=== PATIENT | female | born 1940 | race Caucasian/White ===

== ENCOUNTER 2019-04-13 00:37 | Outpatient (CLI) | payer MEDICARE, OTHER, SELFPAY ==
--- NOTE | 2019-04-13 12:25 | DI.MAMMO_ITS ---
EXAM: MG MAMMO SCREENING CLINICAL HISTORY: Screening, Z12.39. TECHNIQUE: Mammograms were interpreted according to the usual protocol including computer analysis w The [employer] CAD system, tomosynthesis and C-view imaging. COMPARISON: Comparison with prior examinations. FINDINGS: The breast tissue is heterogeneously radiodense which lowers the sensitivity of the study. There is no dominant mass. There are no suspicious calcifications and there has been no appreciable change whe n compared with prior images. IMPRESSION: No evidence of malignancy, category 1, annual screening mammography is recommended. Breast density C . BI-RADS Cat 1 - Negative Breast Density - Category C - Heterogeneously dense
== END 2019-04-13 00:57 ==
PROVIDERS: PCP Nurse Practitioner Family; Visit Provider Obstetrics & Gynecology Gynecology
DX: Z12.31 Encounter for screening mammogram for malignant neoplasm of breast (principal)
CPT/HCPCS: 77063; 77067

== ENCOUNTER 2019-05-24 02:22 | Outpatient (CLI) | payer MEDICARE, OTHER, SELFPAY ==
[2019-05-24 12:07] LABS: Hemoglobin A1C 6.1 % (4.5-6.2)
[2019-05-24 12:20] LABS: ALT 23 U/L (14-59); AST 22 U/L (15-37); Albumin 3.8 g/dL (3.4-5.0); Alkaline Phosphatase 103 U/L (46-116); Anion Gap 7.6 mmol/L (3-11); BUN 18 mg/dL (7-18); Bilirubin, Total 0.5 mg/dL (0.2-1.0); CO2 30.4 mmol/L (21.0-32.0); CREATININE 1.11 mg/dL (0.55-1.02); Calcium 9.2 mg/dL (8.5-10.1); Calculated LDL 104 mg/dL; Chloride 105 mmol/L (98-107); Cholesterol 178 mg/dL (<200); Estimated GFR 47.79 (mL/min/1.73m2); Glucose 91 mg/dL (74-106); HDL Cholesterol 54 mg/dL (40-60); Potassium 5.1 mmol/L (3.5-5.1); Sodium 143 mmol/L (136-145); Total Protein 6.9 g/dL (6.4-8.2); Triglyceride 100 mg/dL (<150)
== END 2019-05-24 02:42 ==
PROVIDERS: PCP Nurse Practitioner Family; Visit Provider Nurse Practitioner Family
DX: I48.20 Chronic atrial fibrillation, unspecified (principal); R79.89 Other specified abnormal findings of blood chemistry; Z13.1 Encounter for screening for diabetes mellitus
CPT/HCPCS: 36415; 80053; 80061; 83036

== ENCOUNTER 2019-05-30 00:06 | Outpatient (CLI) | payer MEDICARE, OTHER, SELFPAY ==
--- NOTE | 2019-05-30 13:41 | DI.CT_ITS ---
EXAM: CT CHEST W CLINICAL HISTORY: chronic SOB, question of scarring on cxray R06.02 SOB TECHNIQUE: Post IV contrast, 70 cc's of Omnipaque 350. COMPARISON: No exams were available for comparison FINDINGS: There is biatrial and left ventricular enlargement. There is mild aortic and coronary artery calcif ication. There are no pleural or pericardial effusions. No pulmonary emboli or aortic dissection is seen. There is a pectus excavatum deformity. There is scarring and calcification in both upper lobe s, right greater than left. There is a focal area of bronchiectasis inferiorly in the lingula. Scol iosis and degenerative changes are seen in the thoracic spine. Parapelvic cysts are noted in the lef t kidney. IMPRESSION: Biapical scarring, right greater than left. No mass is visible. Cardiomegaly.
[2019-05-30] MEDS: Omnipaque 350 MG/ML 100 ML BTL IV (14:12)
== END 2019-05-30 00:26 ==
PROVIDERS: PCP Nurse Practitioner Family; Visit Provider Nurse Practitioner Family
DX: R06.02 Shortness of breath (principal); I51.7 Cardiomegaly; J98.4 Other disorders of lung
CPT/HCPCS: 71260; J3490

== ENCOUNTER 2019-07-07 08:58 | Outpatient (CLI) | payer MEDICARE, OTHER, SELFPAY | END 2019-07-07 09:18 | PROVIDERS: PCP Nurse Practitioner Family; Visit Provider Internal Medicine Cardiovascular Disease | DX: I48.20 Chronic atrial fibrillation, unspecified (principal); N18.9 Chronic kidney disease, unspecified; R06.02 Shortness of breath | CPT/HCPCS: 99204; 93005; 93010 ==

== ENCOUNTER 2019-07-12 00:28 | Outpatient (CLI) | payer MEDICARE, OTHER, SELFPAY ==
--- NOTE | 2019-07-12 12:56 | DI.NM_ITS ---
APPROVED REPORT Exam: Exercise Treadmill Patient Location: Out-Patient Room/Bed: Stress Nurse: Iraida Bejarano RN BMI: 19.46 Baseline Rhythm: Atrial Fibrillation Indications: Patient reports SOB with activity for the past 1 ??? years. Medical History Medical History: Chronic Atrial Fibrillation, Chronic Kidney Disease, Raynaud???s Disease. Cardiac Medications: Apixaban, Metoprolol Succinate (currently in process of weaning and switching ov er to Diltiazem)., Allergies: Meclizine Cardiac Risk Factors: FHX of CAD, COPD Previous Cardiac Procedures: None Pretest Chest Pain Characteristics: No chest pain Exercise History: Physically active Physical Disabilities: None Lung Sounds: Clear to auscultation Heart Sounds: Regular Stress Test Details Test: Exercise stress testing was performed using a modified Ananda protocol. Nuclear Acquisition: Rest TI-201/Stress Tc-99M Rest Isotope: Tc-99m Sestamibi. Dose: 10.5 Date: 07/12/2019 Injection Time: 1140 Stress Isotope: Tc-99m Sestamibi. Dose: 31.5 Date: 07/12/2019 Injection Time: 1410 HR Max Heart Rate (APMHR): 143 bpm Resting HR Supine: 114 bpm Target HR (85% APMHR): 121 bpm Resting HR Standin bpm Max HR Achieved: 162 bpm % of APMHR: 113 HR response to stress: Abnormal HR response to stress BP Resting BP Supine: 110/60 mmHg Resting BP Standin/70 mmHg Max BP: 120/70 mmHg BP response to stress: Normal blood pressure response to stress. ECG Resting ECG: Atrial Fibrillation ST Change: Normal Ectopy: Occasional PVC's Stress ECG: Atrial Fibrillation ST Change: Normal Arrhythmia: None Recovery ECG: Atrial Fibrillation Recovery ST Change: Normal Recovery Arrhythmia: None Clinical Reason for Termination: Dyspnea Stress Symptoms: Dyspnea Exercise duration: 4 min3 sec Highest Stage Achieved: Stage 2: 2.5 mph at 12% grade. Exercise capacity: 5.90 METs Functional Capacity: Average Capacity Stress ECG Conclusion 1. Patient exercised for 4 minutes (6 METS) exercise was stopped due to dyspnea. 2. Patient achieved over 80% of predicted heart rate. Rate-pressure product 17,000. 3. There was no evidence of ischemia on the ECG portion of this exam. Protocol Used: Ananda Protocol Stress Test Summary STAGE Time (mins) Speed (mph) Grade (%) HR BP SYMPTOMS METS Supine 114 110/60 Standing 117 102/70 1 3 1.7 10 146 110/74 4.6 2 6 2.5 12 7 3 9 3.4 14 10.2 4 12 4.2 16 12.9 5 15 5.0 18 17.2 1 min recovery 154 110/62 3 min recovery 105 120/70 6 min recovery 105 110/70 MPI Conclusion Patient's ejection fraction was 52% with stress. There were no wall motion abnormalities. There is no evidence of ischemia on the imaging portion of this exam This represents a normal SPECT stress test Radiologist Interpretation Radiologist Interpretation by: Surya Bcak MD Interpretation Date/Time: 07/13/2019 15:16:48
== END 2019-07-12 00:48 ==
PROVIDERS: PCP Nurse Practitioner Family; Visit Provider Internal Medicine Cardiovascular Disease
DX: R07.9 Chest pain, unspecified (principal); R06.02 Shortness of breath; I48.20 Chronic atrial fibrillation, unspecified; N18.9 Chronic kidney disease, unspecified; J44.9 Chronic obstructive pulmonary disease, unspecified; Z82.49 Family history of ischemic heart disease and other diseases of the circulatory system
CPT/HCPCS: 78452; 93016; 93018; 93017

== ENCOUNTER → 2019-08-02 15:27 | Outpatient (BNVA) | payer MEDICARE, OTHER, SELFPAY | PROVIDERS: PCP Nurse Practitioner Family; Referring Provider Nurse Practitioner Family; Visit Provider Internal Medicine Cardiovascular Disease | DX: R06.02 Shortness of breath (principal); I48.2 Chronic atrial fibrillation; Z79.01 Long term (current) use of anticoagulants | CPT/HCPCS: 99214 ==

== ENCOUNTER 2019-08-25 14:47 | Outpatient (REF) | payer MEDICARE, OTHER, SELFPAY ==
[2019-08-25 16:27] LABS: COMMENT (LAB VIEW ONLY) 51.62 mg/dL; Microalb ug/mg Crea 38.4 ug/mg Cr
[2019-08-25 17:41] LABS: Bilirubin Negative (Negative); Blood Moderate (Negative); Clarity Clear (Clear); Glucose Negative (Negative); Ketones Negative (Negative); Leukocyte Esterase Negative (Negative); Nitrite Negative (Negative); Specific Gravity 1.015 (1.005-1.025); Urobilinogen 0.2 EU/dL (Up TO 0.2)
[2019-08-25 18:04] LABS: Bacteria Negative HPF (Negative); C & S Indicated? No; Casts Negative LPF (Negative); Crystals Few Uric Acid HPF (Negative); Epithelial Cells Negative HPF (Negative); Mucus Negative (Negative); Other Cells Negative (Negative); RBC Negative HPF (0-2); WBC Negative HPF (0-5)
== END 2019-08-25 15:07 ==
LOC: LBN 14:47
PROVIDERS: PCP Nurse Practitioner Family; Visit Provider Nurse Practitioner Family
DX: N18.9 Chronic kidney disease, unspecified (principal)
CPT/HCPCS: 81003; 81015; 82043; 82570

== ENCOUNTER 2020-03-01 01:34 | Outpatient (CLI) | payer MEDICARE, OTHER, SELFPAY ==
--- NOTE | 2020-03-01 07:15 | DI.US_ITS ---
APPROVED REPORT EXAM: Comprehensive 2D, Doppler, and color-flow Echocardiogram Patient Location: Out-Patient Phlebotomy Supervisor: Tsering Matthew RDCS (AE) Indications: SOB, Dyspnea on exertion Other Information Study Quality: Fair Conclusion Left Ventricle : The left ventricle is normal size. The left ventricular systolic function is normal. The left ventricular ejection fraction is within the normal range. There is normal left ventricular wall thickness. There is normal LV segmental wall motion. Diastolic function is indeterminate. LVEF i s 50%. Right Ventricle : The right ventricle is normal size. Right ventricular systolic function is grossly normal. Atria : The left atrium size is normal. Right atrium is borderline dilated. Mitral Valve : The mitral valve is normal in structure. No evidence of mitral valve stenosis. Mild to moderate mitral regurgitation. Great Vessels : The aortic root is normal in size. The ascending aorta is normal in size. Aortic arch is normal in caliber. IVC is normal in size and collapses >50% with inspiration. There are no prior images available for comparison. Please see remainder of study for further detail s. Wall motion Left Ventricle The left ventricle is normal size. The left ventricular systolic function is normal. The left ventric ular ejection fraction is within the normal range. There is normal left ventricular wall thickness. T here is normal LV segmental wall motion. Diastolic function is indeterminate. There is no ventricular septal defect visualized. LVEF is 50%. Right Ventricle The right ventricle is normal size. Right ventricular systolic function is grossly normal. Atria The left atrium size is normal. Right atrium is borderline dilated. The interatrial septum is intact with no evidence for an atrial septal defect. Aortic Valve Aortic valve is trileaflet. There is no aortic valvular stenosis. No aortic regurgitation is present. Mitral Valve The mitral valve is normal in structure. No evidence of mitral valve stenosis. Mild to moderate tyler l regurgitation. Tricuspid Valve The tricuspid valve is normal in structure. There is no tricuspid valve stenosis. Trace tricuspid reg urgitation. Pulmonic Valve The pulmonary valve is normal in structure. There is no pulmonic valvular stenosis. Mild pulmonic reg urgitation. Great Vessels The aortic root is normal in size. The ascending aorta is normal in size. Aortic arch is normal in ca liber. IVC is normal in size and collapses >50% with inspiration. Pericardium There is no pericardial effusion. 2D Dimensions IVSD d PLAX 0.71 cm F: 0.6-1.0 LV Vol A2C d MOD 74.9 mL LVPW d PLAX 0.70 cm F: 0.6 - 1.0 LV Vol A4C d MOD 48.1 mL LVID d PLAX 4.25 cm F: 3.8 - 5.2 LA vol/ BSA A2C s A-L 28.0 mL/m2 LVDs 3.05 cm F: 2.2 - 3.5 LA vol/ BSA A4C s A-L 31.9 mL/m2 Ao Root d 2.63 cm F: 2.7 - 3.3 LA Vol/ BSA Biplane s A-L 30.7 mL/m2 RA Area A4C 18.62 cm2 LA Area A4C s MOD 17.44 cm2 RA Vol/ BSA A4C s A-L 34.3 mL/m2 LA Area A2C s MOD 16.76 cm2 Ao Asc Diam d 2.94 cm F: 2.3 - 3.1 LV EF A4C MOD 50.3 % LV EF Teichholz 54.1 % LV EF A2C MOD 50.7 % LVEF (Zepeda's) 48.20 % F: 54 - 74 LV EF Biplane MOD 48.2 % LV Volume 50.86 mL F: 46 - 106 SV 29.59 mL LV Volume Index 33.46 mL/m2 F: 29 - 61 SV Index 19.43 mL/m2 LV Vol Biplane MOD 61.4 mL FS 27.70 % M-Mode TAPSE 1.77 cm (M/F) >1.7 LV Diastology MV E' medial 0.074 (>0.07 m/s) E/A Ratio 2.4 LV E/e MED 11.10 (<14) MV E Vmax 0.83 (0.4-1.3 m/s) MV E' lateral 0.078 (>0.1 m/s) MV A Vmax 0.35 (0.4-1.3 m/s) LV E/e LAT 10.50 (<14) MV E/A Ratio 2.08 MV E/E' medial 11.13 MV E/E' lateral 10.55 Aortic Valve LVOT Area 2.71 cm2 AoV Area Vmax 2.14 cm2 LVOT Vmax 0.85 m/s AoV Area/ BSA (Vmax) 1.41 cm2/m2 LVOT Mean Conor. 0.52 m/s RUSS Mean Conor. 1.80 cm2 LVOT Peak Grad 2.9 mmHg RUSS Mean Conor. Index 1.18 cm2/m2 LVOT Mean Grad 1.3 mmHg LVOT VTI 0.136 m LVOT Diam s 1.85 cm AoV Vmax 1.07 m/s Velocity Ratio 0.79 AoV Mean Conor. 0.78 m/s AoV Peak Grad 4.6 mmHg LVOT SV 36.76 mL AoV Mean Grad 2.7 mmHg AoV VTI 0.217 m AoV Area VTI 1.69 cm2 AoV Area/ BSA (VTI) 1.11 cm/m2 Mitral Valve MV DT 170 (160-240 msec) MR Vmax 4.50 m/s MV PHT 49 msec MR VTI 1.475 m MV Area PHT 4.46 cm2 MR Peak Grad 80.9 mmHg MV VTI 0.186 m MR Mean Grad 62.1 mmHg MV VTI Annulus 0.198 m MR PISA Radius 0.36 cm MV Area VTI 2.11 (4.0-6.0 cm2) MR EROA 0.06 cm2 MR Aliasing Velocity 0.35 m/s MR PISA 0.81 cm2 Pulmonary Valve PV Vmax 0.76 (0.5-1.5 m/s) RVOT Peak Gr. 0.72 mmHg PV Peak Grad 2.3 mmHg RVOT Mean Gr. 0.35 mmHg PV Mean Grad 1.2 mmHg RVOT VTI 0.088 m PV VTI 0.137 m RVOT Vmax 0.42 m/s Tricuspid Valve TR Peak Grad 18.9 mmHg TR Vmax 2.18 m/s RA Pressure 3.00 mmHg RVSP (TR) 21.9 mmHg
== END 2020-03-01 01:54 ==
PROVIDERS: PCP Nurse Practitioner Family; Visit Provider Internal Medicine Cardiovascular Disease
DX: R06.09 Other forms of dyspnea (principal); I34.0 Nonrheumatic mitral (valve) insufficiency
CPT/HCPCS: 93306

== ENCOUNTER → 2020-03-05 13:05 | Outpatient (BNVA) | payer MEDICARE, OTHER, SELFPAY | PROVIDERS: PCP Nurse Practitioner Family; Referring Provider Nurse Practitioner Family; Visit Provider Internal Medicine Cardiovascular Disease | DX: I48.20 Chronic atrial fibrillation, unspecified (principal); Z79.01 Long term (current) use of anticoagulants | CPT/HCPCS: 99214 ==

== ENCOUNTER 2020-10-02 03:29 | Outpatient (CLI) | payer MEDICARE, OTHER, SELFPAY ==
[2020-10-02 12:24] LABS: HCT 40.6 % (36.0-46.0); HGB 13.4 g/dL (11.2-15.7); MPV 10.8 fL (8.0-11.0); Platelet Count 235 10^3/uL (130-400); RBC 4.32 10^6/uL (3.93-5.22); RDW 12.8 % (11.7-14.6); RDW-SD 43.8 fL; WBC 6.93 10^3/uL (4.4-10.8)
[2020-10-02 12:34] LABS: Anion Gap 6.7 mmol/L (3-11); BUN 18 mg/dL (7-18); CO2 32.3 mmol/L (21.0-32.0); CREATININE 1.2 mg/dL (0.55-1.02); Calcium 9.2 mg/dL (8.5-10.1); Calculated LDL 95 mg/dL (<100); Chloride 104 mmol/L (98-107); Cholesterol 174 mg/dL (<200); Estimated GFR 43.45 (mL/min/1.73m2); Glucose 93 mg/dL (74-106); HDL Cholesterol 62 mg/dL (40-60); Potassium 3.8 mmol/L (3.5-5.1); Sodium 143 mmol/L (136-145); Triglyceride 87 mg/dL (<150)
[2020-10-02 12:35] LABS: Hemoglobin A1C 5.7 % (<5.7)
== END 2020-10-02 03:30 | disposition home or self-care (01) ==
LOC: LOS 03:29
PROVIDERS: PCP Nurse Practitioner Family; Visit Provider Nurse Practitioner Family
DX: R73.03 Prediabetes (principal); N18.9 Chronic kidney disease, unspecified
CPT/HCPCS: 36415; 80048; 80061; 85027; 83036

== ENCOUNTER 2020-10-04 19:59 | Outpatient (REF) | payer MEDICARE, OTHER, SELFPAY ==
[2020-10-04 20:36] LABS: FREE T4 1.16 ng/dL (0.76-1.46); TSH 2.21 uIU/mL (0.36-3.74)
== END 2020-10-04 20:00 | disposition home or self-care (01) ==
LOC: LBN 19:59
PROVIDERS: PCP Nurse Practitioner Family; Visit Provider Nurse Practitioner Family
DX: R63.4 Abnormal weight loss (principal)
CPT/HCPCS: 84439; 84443

== ENCOUNTER 2020-12-14 03:42 | Outpatient (CLI) | payer MEDICARE, OTHER, SELFPAY ==
--- NOTE | 2020-12-14 12:59 | DI.MAMMO_ITS ---
Exam(s) MAMMO SCREENING EXAM: MAMMO SCREENING CLINICAL HISTORY: screening TECHNIQUE: Mammograms were interpreted according to the usual protocol including computer analysis w [employer] CAD system, tomosynthesis and C-view imaging. COMPARISON: 2018 and 2019 FINDINGS: The breasts are composed of heterogeneously dense fibroglandular densities, Breast Density category C . No suspicious masses or suspicious microcalcifications are seen. Coarse calcifications in the anteri or left breast. Mild vascular calcifications. Benign punctate calcifications in the superior right breast. No skin thickening or abnormal axillary lymph nodes are seen. There has been no significant change from prior exams. IMPRESSION: BI-RADS Cat 2 - Benign Findings. Yearly screening mammography is recommended. Breast Density Category C, heterogeneously Dense. The mammogram demonstrates the patient's breast tissue is dense. Dense breast tissue is very common a nd is not abnormal but dense breast tissue can make it harder to find cancer on a mammogram. Also, de nse breast tissue may increase breast cancer risk. This information about the result of the mammogram report was provided to the patient to raise their awareness. Use this report when you speak with the patient about their risks for breast cancer, which includes their family history. At that time, you may recommend additional screening tests (Ultrasound or MRI) as they might be useful based on their r isk. A negative radiographic report should not delay biopsy if a dominant or clinically suspicious mass is present. Up to ten percent of cancers are not identified on mammography. A negative report may reinforce clinical impression. Adenosis and dense breasts may obscure an underlying neoplasm. False positive reports average 6 to 10%.
== END 2020-12-14 04:02 ==
PROVIDERS: PCP Nurse Practitioner Family; Visit Provider Obstetrics & Gynecology Gynecology
DX: Z12.31 Encounter for screening mammogram for malignant neoplasm of breast (principal)
CPT/HCPCS: 77063; 77067

== ENCOUNTER 2020-12-26 01:58 | Outpatient (CLI) | payer MEDICARE, OTHER, SELFPAY ==
--- NOTE | 2020-12-26 06:30 | DI.US_ITS ---
Exam(s) US PELVIS TRANSVAGINAL EXAM: US PELVIS TRANSVAGINAL CLINICAL HISTORY: fullness RLQ on bimanual exam,R19.8. TECHNIQUE: Transabdominal and transvaginal pelvic ultrasound was performed using standard protocol. COMPARISON: No exams were available for comparison FINDINGS: UTERUS: Position: Anteverted. Size: 4.3 x 2.3 x 3.3 cm Endometrium: 1.4 mm. Normal for patient's menstrual status. There is a tiny amount of fluid in the e ndometrial canal. Myometrium: Unremarkable. Cervix: Unremarkable. OVARIES: Right: 1.8 x 0.9 x 0.8 cm Cyst or mass: None. Left: Not visualized transabdominally or transvaginally. No left adnexal mass is identified sonograp hically. CUL-DE-SAC: Free fluid: None. Other: None. IMPRESSION: 1. Examination limited by overlying bowel. 2. Small amount of free fluid in the endometrial canal. 3. Unremarkable right ovary. No evidence of a right adnexal mass. 4. Left ovary not visualized on this examination. No left adnexal mass is seen sonographically. DATA REPOSITORY:
== END 2020-12-26 02:18 ==
PROVIDERS: PCP Nurse Practitioner Family; Visit Provider Obstetrics & Gynecology Gynecology
DX: R19.8 Other specified symptoms and signs involving the digestive system and abdomen (principal)
CPT/HCPCS: 76830; 76856

== ENCOUNTER 2021-03-13 00:20 | Outpatient (CLI) | payer MEDICARE, OTHER, SELFPAY ==
[2021-03-13 12:50] LABS: ALT 27 U/L (14-59); AST 27 U/L (15-37); Albumin 4.1 g/dL (3.4-5.0); Alkaline Phosphatase 121 U/L (46-116); Anion Gap 5.6 mmol/L (3-11); BUN 18 mg/dL (7-18); Bilirubin, Total 0.5 mg/dL (0.2-1.0); CO2 32.4 mmol/L (21.0-32.0); CREATININE 1.1 mg/dL (0.55-1.02); Calcium 9.2 mg/dL (8.5-10.1); Chloride 104 mmol/L (98-107); Estimated GFR 48.04 (mL/min/1.73m2); Glucose 94 mg/dL (74-106); Potassium 4.8 mmol/L (3.5-5.1); Sodium 142 mmol/L (136-145); Total Protein 7.3 g/dL (6.4-8.2)
[2021-03-13 13:21] LABS: HCT 39.1 % (36.0-46.0); MCH 31.6 pg (27.0-33.0); MCHC 33.2 % (32.0-36.0); MCV 94.9 fL (80-95); MPV 10.7 fL (8.0-11.0); Platelet Count 224 10^3/uL (130-400); RBC 4.12 10^6/uL (3.93-5.22); RDW 13.6 % (11.7-14.6); RDW-SD 44.1 fL; WBC 6.25 10^3/uL (4.4-10.8)
== END 2021-03-13 00:21 | disposition home or self-care (01) ==
PROVIDERS: PCP Nurse Practitioner Family; Visit Provider Nurse Practitioner Family
DX: R63.4 Abnormal weight loss (principal)
CPT/HCPCS: 36415; 80053; 85027

== ENCOUNTER 2021-03-21 02:45 | Outpatient (CLI) | payer MEDICARE, OTHER, SELFPAY ==
--- NOTE | 2021-03-21 07:15 | DI.CT_ITS ---
Exam(s) CT ABDOMEN PELVIS W EXAM: CT ABDOMEN PELVIS W CLINICAL HISTORY: Unintentional weight loss, GI upset,r63.4 TECHNIQUE: Imaging Protocol: Axial computed tomography images with coronal and sagittal reformatted images were created and reviewed CONTRAST MATERIAL: Intravenous: Omnipaque 350 Contrast volume:66 mL Oral: Yes COMPARISON: CT CHEST W from 05/30/[address] CHEST W from 05/30/2019 FINDINGS: ABDOMEN: Lung Bases: Normal where visualized. Small hiatal hernia. Liver: Normal density. No measurable mass. The liver measures 18 cm long. Portal, Superior Mesenteric, and Splenic Veins: Unremarkable. Gallbladder and Biliary Tract: No radiodense calculus or dilation. Pancreas: Normal density, no abnormal calcifications or inflammatory process. Spleen: Normal. Adrenals: No masses seen. Kidneys: Normal size, contour and axis. No radiodense stones or obstructive uropathy. Bilateral parap elvic cysts. Abdominal Aorta: Abdominal portion non-dilated. Moderate atherosclerosis. Bowel: No obstruction or bowel wall thickening. Appendix is unremarkable. Peritoneal Cavity: No ascites, collection or mesenteric inflammatory response. No free air. Lymph Nodes: Within normal limits. Bones: Multilevel moderately severe degenerative changes in the lumbar spine. The findings are most marked at L2-3 and L4-L5. There is a left convex scoliosis. Soft Tissues: Unremarkable. PELVIS: Bladder: The bladder is incompletely distended. There is diffuse thickening of the wall of the urina ry bladder. This may be due to underdistention. An infectious/inflammatory process cannot be exclud ed. Reproductive Organs: Unremarkable as visualized. Lymph Nodes: Within normal limits. Bones: Degenerative changes in the spine. IMPRESSION: 1. No acute abdominal or pelvic process. 2. Diffuse thickening of the wall of the urinary bladder. This may be due to underdistention, howeve r an inflammatory/infectious process or neoplasm cannot be excluded. Please correlate clinically. RADIATION DOSE DELIVERED: 647.26mGy.cm Total DLP DATA REPOSITORY: All CT scans at this facility are submitted to the National Radiology Data Registry (NRDR) Dose Index Registry (DIR) with the [employer] (ACR). RADIATION OPTIMIZATION: All CT scans at this facility use at least one of these dose optimization te chniques: automated exposure control; mA and/or kV adjustment per patient size (includes targeted exa ms where dose is matched to clinical indication); or iterative reconstruction.
--- NOTE | 2021-03-21 07:15 | DI.RAD_ITS ---
Exam(s) XR CHEST 2V PA LATERAL EXAM: XR CHEST 2V PA LATERAL CLINICAL HISTORY: r/o lung mass,unintentional wt loss,r63.4 TECHNIQUE: 2D digital imaging was performed of the chest. Images were obtained. PA and lateral v iews were obtained. COMPARISON: CT CHEST W from 05/30/[address] CHEST W from 05/30/2019 FINDINGS: MEDIASTINUM: Normal. HEART: Normal. PULMONARY VASCULATURE: Normal. LUNGS: The lungs appear hyperinflated suspicious for underlying COPD. No focal consolidating infiltr ates are seen. No pulmonary mass is appreciated. PLEURAL SPACE: No pleural effusion or pneumothorax. BONE:Within normal limits for the patient's age. There is a pectus excavatum deformity. OTHER FINDINGS:Normal. IMPRESSION: No acute pulmonary findings. DATA REPOSITORY: RADIATION DOSE DELIVERED:
[2021-03-21 08:51] LABS: CREATININE 1.1 mg/dL (0.55-1.02); Estimated GFR 48.04 (mL/min/1.73m2)
[2021-03-21] MEDS: Breeza Beverage 473 ML BTL PO ×2 (08:53→08:54)
[2021-03-21] MEDS: Omnipaque 350 MG/ML 50 ML BTL PO (08:54)
[2021-03-21] MEDS: Omnipaque 350 MG/ML 100 ML BTL IJ (10:14)
[2021-03-21] MEDS: Normal Saline - Diluent 50 ML VIAL IV (10:14)
[2021-03-21] MEDS: Normal Saline Flush 10 ML SYR IVP (10:15)
== END 2021-03-21 03:05 ==
PROVIDERS: PCP Nurse Practitioner Family; Visit Provider Nurse Practitioner Family
DX: R63.4 Abnormal weight loss
CPT/HCPCS: 71046; 74177; 82565; J3490; Q9967

== ENCOUNTER 2021-04-15 19:28 | Outpatient (REF) | payer MEDICARE, OTHER, SELFPAY ==
[2021-04-15 20:08] LABS: Bilirubin Negative (Negative); Blood Small (Negative); Clarity Clear (Clear); Glucose Negative (Negative); Ketones Negative (Negative); Leukocyte Esterase Negative (Negative); Nitrite Negative (Negative); Specific Gravity 1.015 (1.005-1.025); Urobilinogen 0.2 EU/dL (Up TO 0.2); pH 5.5 (5-8)
[2021-04-15 20:19] LABS: Bacteria Negative HPF (Negative); C & S Indicated? No; Casts Negative LPF (Negative); Crystals Negative HPF (Negative); Epithelial Cells Negative HPF (Negative); Mucus Negative (Negative); Other Cells Negative (Negative); RBC Negative HPF (0-2); WBC 0-2 HPF (0-5)
== END 2021-04-15 19:29 | disposition home or self-care (01) ==
LOC: NCHCN 19:28
PROVIDERS: PCP Nurse Practitioner Family; Visit Provider Nurse Practitioner Family
DX: N32.89 Other specified disorders of bladder (principal); R82.998 Other abnormal findings in urine
CPT/HCPCS: 81003; 81015

== ENCOUNTER 2021-10-24 03:50 | Outpatient (CLI) | payer MEDICARE, OTHER, SELFPAY ==
[2021-10-24 12:22] LABS: Abs Immature Grans 0.02 10^3/uL (0.0-0.06); Absolute Basophil Count 0.03 10^3/uL (0.0-0.2); Absolute Eosinophil Count 0.18 10^3/uL (0.0-0.7); Absolute Lymphocyte Count 1.83 10^3/uL (1.2-3.4); Absolute Monocyte Count 0.41 10^3/uL (0.1-0.8); Absolute Neutrophil Count 2.97 10^3/uL (1.2-6.7); Basophils % 0.6; Eosinophils % 3.3; HCT 37.8 % (36.0-46.0); Immature Grans % 0.4; Lymphocytes % 33.6; MCH 29.6 pg (27.0-33.0); MCHC 31.7 % (32.0-36.0); MCV 93 fL (80-95); Monocytes % 7.5; Neutrophils % 54.6; Platelet Count 239 10^3/uL (130-400); RBC 4.06 10^6/uL (3.93-5.22); RDW 13.3 % (11.7-14.6); RDW-SD 45.9 fL; WBC 5.44 10^3/uL (4.4-10.8)
[2021-10-24 13:07] LABS: Anion Gap 7.2 mmol/L (3-11); BUN 14 mg/dL (7-18); CO2 29.8 mmol/L (21.0-32.0); CREATININE 1.1 mg/dL (0.55-1.02); Calcium 9.1 mg/dL (8.5-10.1); Chloride 103 mmol/L (98-107); Estimated GFR 47.91 (mL/min/1.73m2); Glucose 84 mg/dL (74-106); Potassium 4.2 mmol/L (3.5-5.1); Sodium 140 mmol/L (136-145); TSH (W/Ref FT4) 2.04 uIU/mL (0.36-3.74)
[2021-10-24 13:20] LABS: Hemoglobin A1C 5.8 % (<5.7)
[2021-10-25 11:02] LABS: HIV-1/2 Ag & Ab Screen Negative (Negative)
[2021-10-25 11:28] LABS: Hepatitis C Ab w Rflx HCV PCR Negative (Negative)
== END 2021-10-24 03:51 | disposition home or self-care (01) ==
LOC: LOS 03:51
PROVIDERS: PCP Nurse Practitioner Family; Visit Provider Nurse Practitioner Family
DX: R63.4 Abnormal weight loss (principal); R73.03 Prediabetes; Z11.59 Encounter for screening for other viral diseases; Z11.4 Encounter for screening for human immunodeficiency virus [HIV]
CPT/HCPCS: 36415; 80048; 86803; 87389; 83036; 84443; 85025

== ENCOUNTER → 2022-02-03 01:33 | Outpatient (CLI) | payer MEDICARE, OTHER, SELFPAY ==
--- NOTE | 2022-02-03 12:41 | DI.MAMMO_ITS ---
Exam(s) MAMMO SCREENING EXAM: MAMMO SCREENING CLINICAL HISTORY: screening,z12.39. TECHNIQUE: Bilateral full field digital CC and MLO mammographic images were obtained with 3D tomosyn thesis and utilizing computer aided detection (CAD). COMPARISON: Prior mammograms were reviewed, the most recent being November 2020. FINDINGS: Fibroglandular tissue is again noted be moderately dense, this somewhat decreasing the sensitivity of the mammogram for finding in underlying lesions. No new significant radiograph findings in the right breast. In the left breast on the MLO imaging there is an asymmetric density-possible nodule measuring 6 x 3 millimeters, located 3 cm in from the nipple. No malignant-appearing microcalcification groups in th is region. There is no significant architectural distortion nor skin thickening-retraction. IMPRESSION: 1. No radiographic evidence of malignancy left breast. 2. Asymmetric density-possible nodule left breast. Spot compression MLO view and ultrasound recommen ded. BI-RADS Category 0 - Assessment Incomplete: Need additional imaging evaluation Breast Density - Category C - Heterogeneously dense Breast density Category C or D implies that the patient has dense breast tissue. Dense breast tissue can make it harder to find cancer on a mammogram. Dense breast tissue is also associated with an incr eased risk of breast cancer. This information about the result of the mammogram report was provided to the patient to raise their awareness. Use this report when you speak with the patient about their risks for breast cancer, which includes their family history. At that time, you may recommend additional screening tests (Ultrasoun d or MRI) as these tests may add significant information. A negative radiographic report should not delay biopsy if a dominant or clinically suspicious mass is present. Up to ten percent of cancers are not identified on mammography. A negative report may reinforce clinical impression. Adenosis and dense breasts may obscure an underlying neoplasm. False positive reports average 6 to 10%. Patient will receive a letter notifying them of these results.
== END ==
PROVIDERS: PCP Nurse Practitioner Family; Visit Provider Obstetrics & Gynecology Gynecology
DX: Z12.31 Encounter for screening mammogram for malignant neoplasm of breast (principal); R92.8 Other abnormal and inconclusive findings on diagnostic imaging of breast
CPT/HCPCS: 77063; 77067

== ENCOUNTER → 2022-02-07 00:19 | Outpatient (CLI) | payer MEDICARE, OTHER, SELFPAY ==
--- OUTSIDE RECORDS SUMMARY | 2022-02-07 00:21 | XMS_ITS | Encounter Summary ---
:1940 Author Organization [facility] [place] [address] Care Team Providers Name Role Phone Ml Roche APRN Primary Care Provider Reason for Referral Consultation (Routine) - Open Specialty Diagnoses / Procedures Referred By Contact Refer red To Contact Endocrinology Diagnoses Weight loss, unintentional Ml Roche APRN [facility] [address] [id number] [place], [place] [address] Referral ID Status Reason Start Date Expiration Date Visits V isits Requested Authorized [id number] Open Consult, 10/18/2021 10/18/2022 6 6 Test & Treat Encounter Details Date Type Department Care Team Description 10/18/2021 Transcribe Orders eDH Incoming Ml Roche Weigh t loss, Referrals CL[facility] [employer]RINKING TESTER unintentional [phone] [facility] [address] [place], [place] [id number] Social History Tobacco Use Types Packs/Day Years Used Date Former Smoker Cigarettes 0.5 3 Quit: 06/24/18 70 Smokeless Tobacco: Never Used Sex Assigned at Date Recorded Not on file documented as of this encounter Plan of Treatment Upcoming Encounters Date Type Specialty Care Team Description 03/14/2022 Office Visit Endocrinology Sean Dc MD [facility] [address] [place], [place] [address] (Wo rk) Scheduled Referrals Name Type Priority Associated Diagnoses Order S chedule Referral to Outpatient Routine Weight loss, Ordered: Endocrinology Referral unintentional 10/18/2021 documented as of this encounter Visit Diagnoses Diagnosis Weight loss, unintentional Loss of weight documented in this encounter Care Teams Ecologist Technician Relationship Specialty Start Date End Date Ml Roche APRN PCP - General Family Medicine 10/17/[address] [facility] [address] [place] [address] documented as of this encounter
--- OUTSIDE RECORDS SUMMARY | 2022-02-07 00:21 | XMS_ITS | Encounter Summary ---
:1940 Author Organization [facility] [place] [address] Care Team Providers Name Role Phone Alea Esqueda MD Primary Care Provider Reason for Visit Reason Comments Other 2nd opinion sore throat Consultation (Routine) - Specialty Diagnoses / Procedures Referred By Contact Refer red To Contact Otolaryngology Diagnoses 2ND OPINION FOR SORE THROAT Alea Esqueda MD Seo, Sarah S, MD Procedures TREAT [address] [facility] [address] [place] [address] Phone: Fax: Referral ID Status Reason Start Date Expiration Date Visits V isits Requested Authorized [id number] Consult, Test 03/17/2017 06/19/2017 4 4 & Treat PCP Updated and/or Approved Encounter Details Date Type Department Care Team Description 04/24/2017 Office Visit [facility]ol[facility]ology at [facility] Nasreen Schmidt MD Throat discomfort [facility] [place] [address] [place]ARYNGOLOGY [place], [place] [address] Social History Tobacco Use Types Packs/Day Years Used Date Former Smoker Cigarettes 0.5 3 Quit: 06/24/18 70 Smokeless Tobacco: Never Used Sex Assigned at Date Recorded Not on file documented as of this encounter Last Filed Vital Signs Vital Sign Reading Time Taken Comments Blood Pressure - - Pulse - - Temperature - - Respiratory Rate - - Oxygen Saturation - - Inhaled Oxygen Concentration - - Weight 54.4 kg (120 lb) 04/24/2017 9:54 AM EDT Height 163.8 cm (5' 4.5) 04/24/2017 9:54 AM EDT Body Mass Index 20.28 04/24/2017 9:54 AM EDT documented in this encounter Progress Notes Nasreen Schmidt MD - 04/24/2017 10:00 AM EDT [facility] Otolaryngology - Head and Neck Surgery Nasreen Schmidt MD 04/24/17 10:10 AM [place], [place] [address] Office Patient Name: Brooke Rojo Date of : 1940 PCP: Alea Esqueda MD Chief Complaint: throat irritation History of Present Illness: Brooke Rojo is a 76 y.o. year old female who was seen today at the request of Alea Esqueda in consultation for left-sided throat irritation. Patient has had these symptoms on and off for the past 2years. She notes a spot of irritation over the left side of her throat that is visible to her. She was seen by overlying neurologist in the past who told her that it was an area of irritation. The spothas not grown in size but it is not gone away completely. She does note some mild postnasal drainagesymptoms and rhinitis as well but does seem to aggravate the area. But she denies any difficulty swallowing. Denies dysphagia or odynophagia. Denies any voice changes or hoarseness. Denies hemoptysis or hematemesis. No fevers chills or weight loss. Otherwise doing well. 10 point Review of Systems was normal except for pertinent positives and negatives included in the History of Present Illness. Past Medical and Surgical History There is no problem list on file for this patient. No current outpatient prescriptions on file prior to visit. No current facility-administered medications on file prior to visit. Allergies: Meclizine Surgical History: No past surgical history on file. Family and Social History Family History: No family history on file. Social History: [place] [facility] [id number] Social History Social History ??? Marital status: Spouse name: N/A ??? Number of children: N/A ??? Years of education: N/A Occupational History ??? Not on file. Social History Main Topics ??? Smoking status: Former Smoker Packs/day: 0.50 Years: 3.00 Types: Cigarettes Quit date: 06/24/1967 ??? Smokeless tobacco: Never Used ??? Alcohol use Not on file ??? Drug use: Not on file ??? Sexual activity: Not on file Other Topics Concern ??? Not on file Social History Narrative ??? No narrative on file Physical Exam Temperature: Heart Rate: Blood Pressure: Respiratory Rate: SpO2: General: Age appropriate, healthy appearing, well-groomed, independently mobile. Communicates easily, speech clear, voice is strong. Awake, alert, and oriented to person, place and time. Affect appropriate. Head and Face: Head is normocephalic, atraumatic. Facial resting tone symmetric. Eyes: Conjugate gaze, ocular motility intact bilaterally. PERRL. Neurologic: Cranial Nerves II-XII grossly intact and symmetric. Ears: External ear and ear canal are without deformity. Nose: External nose is midline without deformity or lesion. Anterior rhinoscopy reveals a straight septum, healthy mucosa, turbinates normal in size. Oral: There are no visible or palpable buccal, gingival, lingual, or palatal lesions. The floor of mouth is soft and flat. Dentition is in good repair. Oropharynx: She is status post tonsillectomy but has a little bit of residual tonsil and lymphoid tissue over the left superior tonsillar fossa. This area measures about 3 x 4 mm in size. No ulcerationor overlying induration was noted. Larynx: No stridor, no hoarseness. External laryngeal structures normal to palpation. Face and sinuses are non tender. Salivary glands are soft, non tender, without palpable masses. No temporomandibular joint grinding or locking. Neck: Symmetric. No scars, palpable masses, or crepitus. Midline trachea. Thyroid normal in size, non tender, no palpable mass. Lymphatic: no palpable cervical lymphadenopathy. Pulmonary: Breathing comfortably. Symmetric chest expansion without use of accessory muscles or retraction. Skin: Good skin turgor, no pallor, no icterus. Extremities: No gross deformities, no peripheral edema. ASSESSMENT & RECOMMENDATIONS Brooke Rojo is a 76 y.o. female with left-sided intermittent throat irritation and normal-appearing residual tonsil tissue in the left tonsil fossa. Recommendations: 1. I think the scaly areas getting irritated from her postnasal drainage and so Atrovent nasal sprayhas been sent to her pharmacy to reduce this. 2. She will come back to see me in 3 months to assure stability or improvement in the irritation. I did explain to her that the actual tissue itself may not resolve on its own but the goal is for the irritation to resolve. Nasreen Schmidt MD Otolaryngology - Head and Neck Surgery 04/24/17 10:10 AM documented in this encounter Plan of Treatment Upcoming Encounters Date Type Specialty Care Team Description 03/14/2022 Office Visit [facility]ocrinology [facility] [place] [address] (Wo rk) documented as of this encounter Visit Diagnoses Diagnosis Throat discomfort Throat pain documented in this encounter Care Teams Infant Babysitter Relationship Specialty Start Date End Date Alea Esqueda MD PCP - General 11/22/14 10/16/21 [address] [place] [address] documented as of this encounter
--- OUTSIDE RECORDS SUMMARY | 2022-02-07 00:21 | XMS_ITS | Encounter Summary ---
:1940 Author Organization [facility] [address] Care Team Providers Name Role Phone Ml Roche APRN Primary Care Provider Reason for Visit Reason Onset Date Comments Appointment 10/24/2021 Encounter Details Date Type Department Care Team Description 10/24/2021 Telephone Endocrinology at [facility] C Darby Kim I Appointment [facility] [place] [address] Social History Tobacco Use Types Packs/Day Years Used Date Former Smoker Cigarettes 0.5 3 Quit: 06/24/18 70 Smokeless Tobacco: Never Used Sex Assigned at Date Recorded Not on file documented as of this encounter Miscellaneous Notes Telephone Encounter - Darby Kim I - 10/24/2021 8:10 AM EDT Unable to contact patient to schedule from referral. Letter sent and referral closed. documented in this encounter Plan of Treatment Upcoming Encounters Date Type Specialty Care Team Description 03/14/2022 Office Visit Endocrinology Sean Dc MD [facility] [address] [place] [address] (Wo rk) documented as of this encounter Visit Diagnoses Not on filedocumented in this encounter Care Teams Commercial Sales Consultant Relationship Specialty Start Date End Date Ml Roche APRN PCP - General Family Medicine 10/17/[address] [place] [address] documented as of this encounter
--- OUTSIDE RECORDS SUMMARY | 2022-02-07 00:22 | XMS_ITS | Encounter Summary ---
:1940 Author Organization [facility] Address [address] [place] [address] Care Team Providers Name Role Phone Unavailable Primary Care Provider Unavailable Reason for Visit Reason Comments Basal Cell Carcinoma Neck and Chin Encounter Details Date Type Department Care Team Description 04/18/2020 Office Visit [facility] Elliot Jacob Basal c ell carcinoma (BCC) of chin (Primary Dx); Dermatology - Ethan Raza MD Basal cell carcinoma (BCC) of left side of neck; [address] Basal cell carcinoma of left side of neck [address] [place], [place] [id number] [place] [address] [facility] Level [address] [place] [address] (Wo rk) Social History Tobacco Use Types Packs/Day Years Used Date Former Smoker 1 4 Quit: 06/22/18 68 Smokeless Tobacco: Never Used Alcohol Use Standard Drinks/Week Comments No 0 (1 standard drink = 0.6 oz pure alcoho l) Sex Assigned at Date Recorded Female 05/26/2019 14:58 EST documented as of this encounter Last Filed Vital Signs Vital Sign Reading Time Taken Comments Blood Pressure 118/85 04/18/2020 0747 EDT Pulse 73 04/18/2020 0747 EDT Temperature 36.4 ??C (97.5 ??F) 04/18/2020 0747 EDT Respiratory Rate - - Oxygen Saturation - - Inhaled Oxygen Concentration - - Weight - - Height - - Body Mass Index - - documented in this encounter Functional Status Functional Status Response Date of Assessment Because of a physical, mental, or emotional condition, No 03/13/2018 does this person have difficulty doing errands alone such as visiting a doctor's office or shopping? Cognitive Status Response Date of Assessment Because of a physical, mental, or emotional condition, No 03/13/2018 does this person have serious difficulty concentrating, remembering, or making decisions? documented as of this encounter Patient Instructions Patient InstructionsJasiel Caba MD - 04/18/2020 8:00 EDT WOUND CARE INSTRUCTIONS FOR SKIN SURGERY (SUTURED OR OPEN WOUND) BANDAGE: Leave the bandage in place for 24 hours. You may shower or bathe after 24 hours. Remove thebandage and replace it after the showering (see below). DISCOMFORT: Expect discomfort. Take acetaminophen (for example, TylenolTM) as directed. If this doesnot provide sufficient relief, take ibuprofen (AdvilTM), up to 600 mg every 8 hours). You may take both of these together or alternate them. We do not routinely prescribe narcotic pain medications. If pain is severe and not relieved by the above measures, please call the office. BLEEDING: Some blood seeping into the bandage is NORMAL. If the bleeding soaks through the dressing,remove the dressing, and apply firm, steady pressure with a moist clean wash cloth for fifteen minutes. If the bleeding stops, redress the wound. If not, call our office. ACTIVITY: No strenuous activity for the first 48 hours after surgery. Keep your head elevated. APPEARANCE: Swelling and bruising are normal. Some redness is normal, but the wound should not be red, hot and tender. If the wound rapidly swells up or becomes increasingly inflamed, warm, or drains pus, please call our office. WOUND CARE: ?? Change the dressing daily and/or when it becomes wet. ?? Wash hands with soap and water and clean the wound with soap and warm water. ?? You may use 3% hydrogen peroxide and a cotton swab to loosen and remove the crusting from a woundwith stitches. ?? Apply a thin layer of sterile petroleum jelly over the wound. ?? Cover with Telfa or similar non-stick dressing or bandage ?? Tape in place with Hypafix or paper tape ?? Mild tenderness, pinpoint bleeding and a thin mucous-like discharge are normal. ?? Keep all sutured wounds covered daily for a full 7 days. ?? Open wounds will need to be covered for much longer. ?? If you have sutures that require removal, you will receive specific instructions regarding when and where to have them removed. ?? If you have dissolving sutures they will fall apart and be gone in 10-14 days. OPEN WOUND HEALING (Wound without sutures): If your wound was left open to heal on its own, approximately one week after surgery a pink/red halo will form around the outside of the wound; this is new skin. The center of the wound will appear yellowish white and produce some drainage. The pink halo will slowly migrate toward the center of the wound until the wound is covered with new shiny pink skin. There will be a mucus-like drainage on the dressing and there will be no more drainage when the woundis completely healed. WHEN TO CONTACT YOUR PHYSICIAN: Contact you physician if your wound becomes increasingly sore, tender, red, or warm, or if the surgery site rapidly swells. Please call our office [phone] or if you have any questions or concerns. documented in this encounter Progress Notes Jasiel Caba MD - 04/18/2020 0800 EDT Images from the original note were not included. MOHS SURGERY POST-OP SUMMARY Brooke Rojo is a 79 y.o. year old female who underwent Mohs surgery today 04/18/2020. The following is a summary of the operative findings: Lesion 1 Basal cell carcinoma (BCC) Location Left chin Size Preop (cm) 3.0 cm x 1.5 cm Size Postop (cm) 3.1 cm x 1.8 cm Stages 3 Depth of Excision subcutis Repair intermediate linear repair Lesion 2 Basal cell carcinoma (BCC) Location Left neck Size Preop (cm) 2.5 cm x 1.3 cm Size Postop (cm) 2.7 cm x 1.3 cm Stages 1 Depth of Excision subcutis Repair intermediate linear repair Lesion 3 Basal cell carcinoma (BCC) Location Left neck superior lesion Size Preop (cm) 0.9 cm x 0.7 cm Size Postop (cm) 1.2 cm x 1.0 cm Stages 1 Depth of Excision subcutis Repair intermediate linear repair NOTE: WE ENTERED THE NOTES FOR LESIONS 1 and 2 PRIOR to CYBERATTACK LESION THREE is WRITTEN ON PAPER and SCANNED We also scanned in lesions 1 and 2, however the documentation is duplicated below Due to computer system disruption, additional clinical information for this visit is Scanned Note. For patients, please refer to guidance in trend.ly on how to locate information. Generally this information will appear as a scanned documents saved in My Documents activity. Ms. Rojo was discharged from the operative suite in good condition. She was carefully instructed inpostoperative wound care both verbally and in writing. The patient will return for follow up as needed. Attestation statement: I saw and examined the patient with the resident/fellow. I agree with the findings and plan of care documented in the resident's/fellow's note. Elliot Jacob MD Chief of Dermatology [facility] MOHS OPERATIVE REPORT Patient Name: Brooke Rojo Date of Service: April 18, 2020 Surgeon: Elliot Jacob MD I personally performed the procedure Elliot Jacob MD Chief of Dermatology [facility] Warp Tension Tester: Jasiel Toledo MD Case #: [id number] Mohs AUC Score: 9 (APPROPRIATE) Preoperative Diagnosis: Basal cell carcinoma (BCC) Preoperative Procedure: Mohs micrographic surgery Location of Lesion: Left chin Preoperative Lesion Size: 3.0 cm x 1.5 cm Preoperative Procedure: Mohs microscopically-controlled fresh tissue excision Indications: The patient presents with a basal cell carcinoma (BCC). Because of the histologic and clinical nature of the lesion, as well as its location, the need to achieve the highest cure rate while providing maximum tissue preservation warranted tumor extirpation via microscopically-controlled excision using the Mohs fresh tissue technique. Alternate therapeutic options were discussed on severaloccasions prior to surgery. After informed consent was obtained and appropriate instruction was provided, the patient underwent tumor extirpation by the Mohs fresh tissue technique as follows: PROCEDURE - INITIAL STAGE: Patient position: supine Anesthesia: 1% lidocaine with epinephrine 1:100,000 local infiltration Prep: Povodine Iodine No data found. The patient was brought to the operative suite. The lesion was identified and was prepped in a sterile fashion. The area was infiltrated with lidocaine/epinephrine to achieve complete anesthesia and toaugment hemostasis. The Mohs procedure was then carried out by Dr. Jacob as follows: An initial beveled excision was performed to the subcutis with a scalpel blade and tissue scissors as indicated. Ahash was created in the specimen and within the adjacent epidermis for marking purposes. The Mohs specimen was excised in a sharp manner, and carefully placed in proper orientation on the surgical tray. Hemostasis of the operative wound was obtained with careful spot electrocoagulation. A sterile non-adherent dressing was applied to the operative wound. The Mohs tissue specimen was carefully transferred to the lab where the tissue was divided, and color inked for orientation. These specimens were mapped and then handed personally by the doctor to the sterile instrument technician for frozen sectioning. The tissue was embedded so that the deep and surface margins lay inthe same plane, and sections were made through this plane. Once the slide preparation was complete Dr. Jacob performed histologic evaluation and interpretation of all sections. A summary of the findings may be found below. Stage 1 findings: Wound Depth subcutis Sections Created 2 Number of Sections Containing Tumor 1 (NODULAR BASAL CELL CARCINOMA -- Emanating from the epidermis and infiltrating the dermis are irregularly shaped islands of basaloid keratinocytes. The cells have scant cytoplasm and round dark nuclei. Mitotic figures and apoptotic bodies are evident. The nuclei at the periphery of the islands have a palisaded arrangement. The islands are associated with a fibromyxoid stroma and there is cleft formation between some of the islands and stroma.) ADDITIONAL STAGES: The operative site was reidentified and anesthesia was supplemented with further lidocaine/epinephrine as needed. Further beveled incisions of lateral and deep margins were performed with a number 15 scalpel blade at all sites where tumor was mapped from the previous stage. Hashes were created in the specimen and within the adjacent epidermis for marking purposes as indicated. The specimens were excised in a sharp manner, and carefully placed in proper orientation on the surgical tray. Hemostasis ofthe operative wound was obtained with careful spot electrocoagulation. A sterile non-adherent dressing was applied to the operative wound. Stage 2 findings: Wound Depth subcutis Sections Created 1 Number of Sections Containing Tumor 1 Stage 3 findings: Wound Depth subcutis Sections Created 1 Number of Sections Containing Tumor 0 With the patient clear of microscopic tumor, surgery was considered complete. The wound was repairedwith an INTERMEDIATE LINEAR closure as detailed in the separate linear repair procedure note below. Postoperative Wound Size: 3.1 cm x 1.8 cm Final Diagnosis: Basal cell carcinoma (BCC) Final Procedure: Mohs micrographic surgery Blood Loss: Minimal Operative Time: 90 minutes Complications: None Note: None INTERMEDIATE REPAIR PATIENT INFORMATION: Brookegrey Rojo SURGEON: Elliot Jacob MD I personally performed the procedure Elliot Jacob MD Chief of Dermatology [facility] STARTER MECHANIC: Jasiel Toledo MD PREOPERATIVE DIAGNOSIS: Defect following microscopically controlled excision of basal cell carcinoma(BCC) PREOPERATIVE PROCEDURE: Intermediate Linear Closure LOCATION of WOUND: Left chin WOUND DIMENSIONS: 3.1 cm x 1.8 cm INDICATIONS: The patient presents with an operative wound following tumor removal. After careful consideration and discussion of all repair options, it was determined that, given the location and nature of the defect, an intermediate linear layered closure offered the best chance for preservation of normal anatomic and functional relationships. Alternate options were discussed and the patient was encouraged to ask questions, which, I believe, were answered appropriately. Informed consent was obtained in writing.After informed consent was obtained and appropriate instruction was provided, the patient underwent operative repair as follows. PROCEDURE: Patient position: supine Anesthesia: 1% lidocaine with epinephrine 1:100,000 local infiltration Prep: Povodine Iodine The Mohs operative defect was identified, and the area was infiltrated with lidocaine/epinephrine toachieve complete anesthesia and to augment hemostasis. The area was prepped in the usual sterile andwas draped with sterile drapes. A linear closure was designed with care to place the operative repair within functional and cosmetic lines to minimize the postoperative distortion of normal tissues. The wound edges were prepared using a # 15 scalpel blade to precisely delineate the operative repair and were then undermined with combined blunt and, as needed, sharp dissection taking great care to avoid functionally important vessels and nerves. Undermining was carried out at the level of the subcutaneous fat Hemostasis of the operative wound was obtained with careful spot electrocoagulation, and ligature as indicated. The wound edges were then approximated using 5.0 Monocryl (poliglecaprone 25) buried interrupted sutures at the level of the subcutis and dermis. The epidermis was then approximated u sing 6.0 Fast absorbing plain gut. The final wound length was 5.7cm. FINAL DIAGNOSIS: Defect following microscopically controlled excision FINAL PROCEDURE: Intermediate linear closure BLOOD LOSS: minimal OPERATIVE TIME: 30 minutes COMPLICATIONS: None NOTE: None MOHS OPERATIVE REPORT Patient Name: Brooke Rojo Date of Service: April 18, 2020 Surgeon: Elliot Jacob MD I personally performed the procedure Elliot Jacob MD Chief of Dermatology [facility] Warp Tension Tester: Jasiel Toledo MD Case #: [id number] Mohs AUC Score: 8 (APPROPRIATE) Preoperative Diagnosis: Basal cell carcinoma (BCC) Preoperative Procedure: Mohs micrographic surgery Location of Lesion: Left neck Preoperative Lesion Size: 2.5 cm x 1. 3 cm Preoperative Procedure: Mohs microscopically-controlled fresh tissue excision Indications: The patient presents with a basal cell carcinoma (BCC). Because of the histologic and clinical nature of the lesion, as well as its location, the need to achieve the highest cure rate while providing maximum tissue preservation warranted tumor extirpation via microscopically-controlled excision using the Mohs fresh tissue technique. Alternate therapeutic options were discussed on severaloccasions prior to surgery. After informed consent was obtained and appropriate instruction was provided, the patient underwent tumor extirpation by the Mohs fresh tissue technique as follows: PROCEDURE - INITIAL STAGE: Patient position: supine Anesthesia: 1% lidocaine with epinephrine 1:100,000 local infiltration Prep: Povodine Iodine No data found. The patient was brought to the operative suite. The lesion was identified and was prepped in a sterile fashion. The area was infiltrated with lidocaine/epinephrine to achieve complete anesthesia and toaugment hemostasis. The Mohs procedure was then carried out by Dr. Jacob as follows: An initial beveled excision was performed to the subcutis with a scalpel blade and tissue scissors as indicated. Ahash was created in the specimen and within the adjacent epidermis for marking purposes. The Mohs specimen was excised in a sharp manner, and carefully placed in proper orientation on the surgical tray. Hemostasis of the operative wound was obtained with careful spot electrocoagulation. A sterile non-adherent dressing was applied to the operative wound. The Mohs tissue specimen was carefully transferred to the lab where the tissue was divided, and color inked for orientation. These specimens were mapped and then handed personally by the doctor to the sterile instrument technician for frozen sectioning. The tissue was embedded so that the deep and surface margins lay inthe same plane, and sections were made through this plane. Once the slide preparation was complete Dr. Jacob performed histologic evaluation and interpretation of all sections. A summary of the findings may be found below. Stage 1 findings: Wound Depth subcutis Sections Created 2 Number of Sections Containing Tumor 0 (SUN DAMAGED SKIN: Sections consist of a portion of skin, including epidermis, dermis, and subcutis. The epidermis is unremarkable. There is chronic patchy inflammation and solar elastosis present within the dermis. There is no evidence of malignancy). ADDITIONAL STAGES: None With the patient clear of microscopic tumor, surgery was considered complete. The wound was repairedwith an INTERMEDIATE LINEAR closure as detailed in the separate linear repair procedure note below. Postoperative Wound Size: 2.7 cm x 1.5 cm Final Diagnosis: Basal cell carcinoma (BCC) Final Procedure: Mohs micrographic surgery Blood Loss: Minimal Operative Time: 60 minutes Complications: None Note: None INTERMEDIATE REPAIR PATIENT INFORMATION: Brooke Rojo SURGEON: Elliot Jacob MD I personally performed the procedure STARTER MECHANIC: Jasiel Toledo MD PREOPERATIVE DIAGNOSIS: Defect following microscopically controlled excision of basal cell carcinoma(BCC) PREOPERATIVE PROCEDURE: Intermediate Linear Closure LOCATION of WOUND: Left neck WOUND DIMENSIONS: 2.7 cm x 1.5 cm INDICATIONS: The patient presents with an operative wound following tumor removal. After careful consideration and discussion of all repair options, it was determined that, given the location and nature of the defect, an intermediate linear layered closure offered the best chance for preservation of normal anatomic and functional relationships. Alternate options were discussed and the patient was encouraged to ask questions, which, I believe, were answered appropriately. Informed consent was obtained in writing.After informed consent was obtained and appropriate instruction was provided, the patient underwent operative repair as follows. PROCEDURE: Patient position: supine Anesthesia: 1% lidocaine with epinephrine 1:100,000 local infiltration Prep: Povodine Iodine The Mohs operative defect was identified, and the area was infiltrated with lidocaine/epinephrine toachieve complete anesthesia and to augment hemostasis. The area was prepped in the usual sterile andwas draped with sterile drapes. A linear closure was designed with care to place the operative repair within functional and cosmetic lines to minimize the postoperative distortion of normal tissues. The wound edges were prepared using a # 15 scalpel blade to precisely delineate the operative repair and were then undermined with combined blunt and, as needed, sharp dissection taking great care to avoid functionally important vessels and nerves. Undermining was carried out at the level of the subcutaneous fat Hemostasis of the operative wound was obtained with careful spot electrocoagulation, and ligature as indicated. The wound edges were then approximated using 5.0 Monocryl (poliglecaprone 25) buried interrupted sutures at the level of the subcutis and dermis. The epidermis was then approximated u sing 6.0 Fast absorbing plain gut. The final wound length was 5.0 cm. 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
--- OUTSIDE RECORDS SUMMARY | 2022-02-07 00:22 | XMS_ITS | Encounter Summary ---
:1940 Author Organization [facility] Address [address] [place] [address] Care Team Providers Name Role Phone Ml Roche NP Primary Care Provider Reason for Visit Reason Comments Follow-up skin lesions; L side upper l ip Encounter Details Date Type Department Care Team Description 11/04/2021 Office Visit [facility] Taylor Murdock sa, MD Seborrheic keratoses (Primary Dx); Dermatology - Main [address] [place] [address] Rosacea ; [facility] Lentigines; [address] [place] [address] Actinic skin damage; [place] [address] [facility], Level 5 History of nonmelanoma skin cancer [phone] [place] [phone] (Wo rk) Social History Tobacco Use Types Packs/Day Years Used Date Former Smoker 1 4 Quit: 06/22/18 68 Smokeless Tobacco: Never Used Alcohol Use Standard Drinks/Week Comments No 0 (1 standard drink = 0.6 oz pure alcoho l) Sex Assigned at Date Recorded Female 05/26/2019 14:58 EST documented as of this encounter Functional Status Functional Status Response [...] making decisions? documented as of this encounter Progress Notes Yolanda Murdock MD - 11/04/2021 1300 EDT Dermatology Outpatient Visit Note Chief Complaint Patient presents with ??? Follow-up skin lesions; L side upper lip Dermatologic History: 1. History of multiple basal cell carcinomas including barragan, forehead, thigh, christian and eyelid - left supraclavicular neck s/p shave removal with neg margins 08/2013 - upper lip s/p Mohs 2018 - left neck s/p shave removal with neg margins 10/2018 - BCC, left chin, left inferior neck, and left post-auricular neck, s/p shave biopsy on 02/23/2020 - s/p Mohs 2. Rosacea 3. Seborrheic keratoses Last Dermatology office visit: February 2021 SUBJECTIVE Ms. Rojo is a 81 y.o. female who presents for follow up for skin check. - lesion on left upper lip - check prior basal cell carcinoma sites - rosacea doing well OBJECTIVE VS: There were no vitals taken for this visit. Ms. Rojo is female with Bucio type II skin. Cutaneous full body examination including the hair, scalp, face, eyelids, lips, neck, chest, back, abdomen, all four extremities, hands, feet, digits and nails was performed.The examination was notable for the following: - left upper lip: bland william macule - scattered stuck on waxy papules - left neck, left chin, upper lip: well-healed scars without ulceration or nodularity ASSESSMENT/PLAN Seborrheic keratoses Benign, reassurance provided. Rosacea Continue azelaic acid Lentigines Actinic skin damage History of nonmelanoma skin cancer The nature of sun-induced photo-aging and skin cancers is discussed. Sun avoidance, protective clothing, and the use of OTC broad spectrum 50+-SPF sunscreens with both UVA and UVB coverage is advised. Observe closely for skin damage/changes, and call if such occurs. No orders of the defined types were placed in this encounter. She will Return in about 1 year (around 11/04/2022) for FBSE, hx NMSC. Yolanda Murdock MD 11/07/2021 15:13 documented in this encounter Plan of Treatment Not on filedocumented as of this encounter Visit Diagnoses Diagnosis Seborrheic keratoses - Primary Rosacea Lentigines Other dyschromia Actinic skin damage Other dermatitis due to solar radiation History of nonmelanoma skin cancer Personal history of other malignant neop lasm of skin documented in this encounter Care Teams Breast Trimmer Relationship Specialty Start Date End Date Ml Roche NP PCP - General 11/12/[address] [place] [id number] documented as of this encounter
--- OUTSIDE RECORDS SUMMARY | 2022-02-07 00:22 | XMS_ITS | Encounter Summary ---
:1940 Author Organization [facility] Address [address] [place] [address] Care Team Providers Name Role Phone Alea Esqueda MD Primary Care Provider Encounter Details Date Type Department Care Team Description 10/29/2015 Orders Only [facility] Lilibeth Esqueda MD [facility] - [id number] [place] [address] [phone] Social History Tobacco Use Types Packs/Day Years Used Date Former Smoker 1 4 Quit: 06/22/18 68 Smokeless Tobacco: Never Used Alcohol Use Standard Drinks/Week Comments No 0 (1 standard drink = 0.6 oz pure alcoho l) Sex Assigned at Date Recorded Female 05/26/2019 14:58 EST documented as of this encounter Plan of Treatment Not on filedocumented as of this encounter Visit Diagnoses Not on filedocumented in this encounter Care Teams Wind Turbine Erector Relationship Specialty Start Date End Date Alea Esqueda MD PCP - General 05/11/14 02/22/[address] [place] [address] [phone] documented as of this encounter
--- OUTSIDE RECORDS SUMMARY | 2022-02-07 00:22 | XMS_ITS | Encounter Summary ---
:1940 Author Organization [facility] Address [address] [place] [address] Care Team Providers Name Role Phone Ml Roche NP Primary Care Provider Reason for Visit Reason Comments Basal Cell Carcinoma left chin Encounter Details Date Type Department Care Team Description 12/31/2020 Office Visit [facility] Elliot Jacob Basal c ell carcinoma Dermatology - [facility] MD Ry (BCC) of [address] (Primary Dx) [address] [place] [address] [facility] Level [address] [place] [address] (Wo rk) Social History Tobacco [...] Sign Reading Time Taken Comments Blood Pressure 105/74 12/31/2020 1025 EDT Pulse 124 12/31/2020 1025 EDT Temperature - - Respiratory Rate - - [...] as of this encounter Patient Instructions Patient InstructionsWilgabe LoisNANNETTE - 12/31/2020 10:00 EDT WOUND CARE INSTRUCTIONS FOR SKIN SURGERY [...] site rapidly swells. Please call our office [phone] or if you have any questions or concerns. documented in this encounter Progress Notes Danielle Menjivar PA-C - 12/31/2020 1000 EDT Images from the original note were not included. MOHS SURGERY POST-OP SUMMARY Brooke Rojo is a 80 y.o. year old female who underwent Mohs surgery today 12/31/2020. The followingis a summary of the operative findings: Lesion 1 Basal cell carcinoma (BCC) Location left chin Size Preop (cm) 0.4 cm x 0.4 cm Size Postop (cm) 0.9 cm x 0.9 cm Stages 1 Depth of Excision subcutis Repair intermediate linear repair Ms. Rojo was discharged from the operative suite in good condition. She was carefully instructed inpostoperative wound care both verbally and in writing. All sutures used were absorbable, so the patient does not need to return for suture removal. Patient will return in January for Mohs of the forehead and scalp. Note: None Attestation statement: I performed or was present during the guerra or critical portions of the visit and participated in the management of the patient. I agree with the findings and plan of care documented in the resident's/fellow's note. Elliot Jacob MD Chief of Dermatology [facility] MOHS OPERATIVE REPORT Patient Name: Brooke Rojo Date of Service: December 31, 2020 Surgeon: Elliot Jacob MD I personally performed the procedure Elliot Jacob MD Chief of Dermatology [facility] Timber Bucker: Danielle Menjivar PA-C and Jasiel Toledo MD Case #: [id number] Mohs AUC Score: 7 (APPROPRIATE) Preoperative Diagnosis: Nodular basal cell carcinoma Preoperative Procedure: Mohs micrographic surgery Location of Lesion: left chin Preoperative Lesion Size: 0.4 cm x 0.4 cm Preoperative Procedure: Mohs microscopically-controlled fresh tissue excision Indications: The patient presents with a skin cancer with high risk features for recurrence including: location on the chin. Because of the histologic and clinical nature of the lesion, as well as its location, the need to achieve the highest cure rate while providing maximum tissue preservation warranted tumor extirpation via microscopically-controlled excision using the Mohs fresh tissue technique.Alternate therapeutic options were discussed prior to surgery. After informed consent was obtained and appropriate instruction was provided, the patient underwent tumor extirpation by the Mohs fresh tissue technique as follows: PROCEDURE - INITIAL STAGE: Patient position: seated Anesthesia: 1% lidocaine with epinephrine 1:100,000 local infiltration Prep: Povodine Iodine Patient Vitals for the past 24 hrs: BP Pulse 12/31/20 1025 105/74 (!) 124 The patient was brought to the operative suite. The lesion was identified and was prepped in a sterile fashion. The area was infiltrated with lidocaine/epinephrine to achieve complete anesthesia and toaugment hemostasis. The Mohs procedure was then carried out by Dr. Jacob as follows: An initial beveled excision was performed through the epidermis and dermis with a #15 scalpel blade. A hash was created in the specimen and within the adjacent epidermis for marking purposes. The Mohs specimen was then excised in a sharp manner, and carefully placed in proper orientation on the surgical tray. Hemost asis of the operative wound was obtained with careful spot electrocoagulation. A sterile non-adherent dressing was applied to the operative wound. The Mohs tissue specimen was carefully transferred to the lab where the tissue was divided, and color inked for orientation. These specimens were mapped and then handed personally by the doctor to the research technician for frozen sectioning. The tissue was [...] repair procedure note below. Postoperative Wound Size: 0.9 cm x 0.9 cm Final Diagnosis: Nodular basal cell carcinoma Final Procedure: Mohs micrographic surgery Blood Loss: Minimal Operative Time: 45 minutes Complications: None Note: None INTERMEDIATE REPAIR PATIENT INFORMATION: Brooke Rojo SURGEON: Elliot Jacob MD I personally performed the procedure Elliot Jacob MD Chief of Dermatology [facility] VOLUNTEER FIREFIGHTER: Danielle Menjivar PA-C and Jasiel Toledo MD PREOPERATIVE DIAGNOSIS: Defect following microscopically controlled excision of nodular basal cell carcinoma PREOPERATIVE PROCEDURE: Intermediate Linear Closure LOCATION of WOUND: left chin WOUND DIMENSIONS: 0.9 cm x 0.9 cm INDICATIONS: The patient presents with an [...] plain gut. The final wound length was 3.0 cm. FINAL DIAGNOSIS: Defect following microscopically controlled excision FINAL PROCEDURE: Intermediate linear closure BLOOD LOSS: minimal OPERATIVE TIME: 45 minutes COMPLICATIONS: None NOTE: None I Danielle Menjivar PA-C am acting as a scribe for Dr. Elliot Jacob. Danielle Menjivar PA-C 12/31/2020 11:42 documented in this encounter Plan of Treatment Not on filedocumented as of this encounter Procedures Procedure Name Priority Date/Time Associated Diagnosis Comme nts PROCEDURE REPORTS - 01/10/2021 22:48 Resu lts for this SCANNED EDT procedure are i n the results section. documented in this encounter Results PROCEDURE REPORTS - SCANNED (01/10/2021 22:48 EDT) Specimen Narrative This result has an attachment that is no t available. documented in this encounter Visit Diagnoses Diagnosis Basal cell carcinoma (BCC) of [facility] documented in this encounter Care Teams Level Vial Inspector Relationship Specialty Start Date End Date Ml Roche NP PCP - General 11/12/[address] [place] [address] [address] [place] [address] documented as of this encounter
--- OUTSIDE RECORDS SUMMARY | 2022-02-07 00:22 | XMS_ITS | Encounter Summary ---
:1940 Author Organization [facility] Address [address] [place] [address] Care Team Providers Name Role Phone Alea Esqueda MD Primary Care Provider Reason for Visit Reason Comments Osteoporosis Encounter Details Date Type Department Care Team Description 10/26/2015 Office Visit [facility] Bogdan Barlow MD Ost eoporosis (Primary Dx); Osteoporosis - Main Suresh Traore MD History of bisphosphonate therapy; [place] Family history of hip fractu re [address] [place], [place] [id number] Social History Tobacco Use Types Packs/Day Years [...] - - Weight 54.4 kg (120 lb) 10/26/2015 1044 EDT Height 164.2 cm (5' 4.65) 10/26/2015 1044 EDT Body Mass Index 20.19 10/26/2015 1044 EDT documented in this encounter Progress Notes Rena Estrada - 10/26/2015 1117 EDT Procedure Date: 10/26/2015 Referring Physician: Alea Esqueda MD Previous Scan Date: 2012 ABN Necessary: No Ht 164.2 cm (64.65) Wt 54.432 kg (120 lb) BMI 20.19 kg/m2 Done AP SPINE yes FEMUR yes TOTAL BODY FOREARM LVA/VFA HEEL US PATIENT HISTORY: Patient Active Problem List Diagnosis ??? History of basal cell carcinoma Past Medical History Diagnosis Date ??? Varicella ??? Alopecia ??? Rosacea ??? Actinic keratosis ??? Basal cell carcinoma CHIN, left upper lid ??? Basal cell carcinoma 09/30/05 left advent ??? Basal cell carcinoma 03/17/06 left thigh ??? Basal cell carcinoma 06/30/06 chin ??? Basal cell carcinoma 05/01/09 chin ??? Broken toe left 5th toe ??? Raynaud's disease Additional Comments: Previous/Prior Comparison? Yes Pharmacologic? No [facility] Patient Information Ethnicity/Race: Nutrition and Habits: Do you consume dairy? Yes Number of servings per day? 4 Do you take calcium supplements? Yes Amount? 700 mg daily Do you drink 3 or more alcoholic beverages daily? No Have you now or have you had in the past an eating disorder? No Do you or have you smoked in the last 6 months? No Family History: Did your mother or father have a hip fracture? Yes (Mom\ fall) Do you have a parent or sibling who suffered a broken hip, shoulder, wrist or ribs after age 45? Yes Patient History-Medications: Have you taken any of the following medications or treatments. (Now or in the past)?: Steroid (prednisone, cortisone, Medrol) 5mg. or more for at least 3 months? No Thyroid medication for thyroid cancer suppression? No Anticonvulsants (phenytoin, Dilantin, phenobarbital) No GnRH Agonist (for endometriosis or prostate cancer, Example - Lupron) No Depo Povera (Current use) No Aromatase inhibitor: Letrozol (Femera), Anastrozole (arimidex), Exemestane (Aromasin) No TZD's for diabetes (Actos, Avandia) No Medical History: Have you had any of the following?: Hyperthyroidism (over active thyroid) No Hyperparathyroidism (over active parathyroid, high blood calcium) No Kidney failure No Rheumatoid arthritis No Seizure disorder (epilepsy) No Diabetes mellitus No Bariatric surgery/Gastric bypass No Back Surgery No Back X-ray No Fractures after age 40 No Area: Treatments: Alendronate (Fosamax) Past use X 2-3 yrs, Date stopped: ? 2006 Calcitonin (Miacalcin) Never, Date stopped: Denosumab (Prolia) Never, Date stopped: Ibandronate (Boniva) Never, Date stopped: Pamidronate (Aredia) Never, Date stopped: Raloxifene (Evista) Never, Date stopped: Risendronate (Actonel) Never, Date stopped: Teriparatide (Forteo) Never, Date stopped: Zoledronic Acid (Reclast, Zomata) Never, Date stopped: Other: Never, Date stopped: For Women Only: What was your age at menopause? 54 Are you taking estrogen now or within the past year? Never, Date stopped: Have you been treated for breast cancer? Never Comments: No VFA done due to Osteoporosis. Rena Estrada 10/26/2015 11:17 documented in this encounter Plan of Treatment Not on filedocumented as of this encounter Procedures Procedure Name Priority Date/Time Associated Diagnosis Comme nts ORDERS - SCANNED 10/31/2015 7:59 EDT DXA DUAL XRAY Routine 10/29/2015 11:27 Osteoporosis ABSORPTIOMETRY FOR BONE EDT History of DENSITY ([facility] bisphosphonate t herapy PERFORMED) Family history of hip fracture documented in this encounter Results DXA-DUAL XRAY ABSORPTIOMETRY FOR BONE DENSITY (10/29/2015 11:27 EDT) Pathologist Sig nature DEXA Bone Density [facility] DEXA Bone Density, External [facility] Anatomical Region Laterality Modality Other Specimen Narrative This result has an attachment that is no t available. Performing Organization Address City/State/ZIP Code Phon e Number [facility] documented in this encounter Visit Diagnoses Diagnosis Osteoporosis - Primary Osteoporosis, unspecified History of bisphosphonate therapy Personal history of other drug therapy Family history of hip fracture Family history of other musculoskeletal diseases documented in this encounter Orders Admission Count Last Ordered Date First Ordered Date ORDERS - SCANNED 1 10/31/2015 documented in this encounter Care Teams Alloy Weigher Relationship Specialty Start Date End Date Alea Esqueda MD PCP - General 05/11/14 02/22/[address] [place] [phone] documented as of this encounter
--- OUTSIDE RECORDS SUMMARY | 2022-02-07 00:22 | XMS_ITS | Encounter Summary ---
:1940 Author Organization [facility] Address [address] [place] [address] Care Team Providers Name Role Phone Alea Esqueda MD Primary Care Provider Reason for Visit Reason Onset Date Comments Other 11/20/2017 Encounter Details Date Type Department Care Team Description 11/20/[address] [facility] Ras Bowman MD Other Dermatology - [facility] [address] [address] [address], [place] [address] (Wo rk) Social History Tobacco Use Types Packs/Day Years Used Date Former Smoker 1 4 Quit: 06/22/18 68 Smokeless Tobacco: Never Used Alcohol Use Standard Drinks/Week Comments No 0 (1 standard drink = 0.6 oz pure alcoho l) Sex Assigned at Date Recorded Female 05/26/2019 14:58 EST documented as of this encounter Miscellaneous Notes Telephone Encounter - Francesca Acosta - 11/24/2017 1003 EDT Spoke to patient. All jasmin. Francesca Acosta 11/24/2017 10:04 elephone Encounter - Ras Bowman MD - 11/24/2017 0953 EDT No need to stop blood thinner for biopsy RAS BOWMAN MD 11/24/2017 9:53 dispatch associate elephone Encounter - vEe Burns - 11/20/2017 1506 EDT Patient started taking blood thinner medication, is coming in for a biopsy on 11/24/2017. Does the patient need to stop medication prior to biopsy. documented in this encounter Plan of Treatment Not on filedocumented as of this encounter Visit Diagnoses Not on filedocumented in this encounter Care Teams Canal Tender Relationship Specialty Start Date End Date Alea Esqueda MD PCP - General 05/11/14 02/22/[address] [place] [phone] documented as of this encounter
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
--- OUTSIDE RECORDS SUMMARY | 2022-02-07 00:22 | XMS_ITS | Encounter Summary ---
:[address] [facility] Address [address] [place] [address] Care Team Providers Name Role Phone Alea Esqueda MD Primary Care Provider Reason for Referral (Routine) - Closed Specialty Diagnoses / Procedures Referred By Contact Refer red To Contact Diagnoses Osteoporosis History of bisphosphonate therapy Family history of hip fracture Alea Esqueda MD Procedures DXA-DUAL XRAY ABSORPTIOMETRY FOR BONE DENSITY [address] [place] [phone] Referral ID Status Reason Start Date Expiration Date Visits Requ ested Visits Authorized [id number] Closed 10/26/2015 1 1 Encounter Details Date Type Department Care Team Description 10/26/2015 Orders Only [facility] Cherie Esqueda (Primary Dx); Osteoporosis - Ethan Cosby MD History of bisphosphonate therapy; [address] Family history of hip fracture [address] [place] [address] [phone] Social History Tobacco Use Types Packs/Day Years Used Date Former Smoker 1 4 Quit: 06/22/18 68 Smokeless Tobacco: Never Used Alcohol Use Standard Drinks/Week Comments No 0 (1 standard drink = 0.6 oz pure alcoho l) Sex Assigned at Date Recorded Female 05/26/2019 14:58 EST documented as of this encounter Plan of Treatment Not on filedocumented as of this encounter Results DXA-DUAL XRAY ABSORPTIOMETRY FOR BONE DENSITY (10/29/2015 11:27 EDT) Pathologist Sig nature DEXA Bone Density [facility] DEXA Bone Density, External [facility] Anatomical Region Laterality Modality Other Specimen Narrative This result has an attachment that is no t available. Performing Organization Address City/State/ZIP Code Phon e Number [facility] documented in this encounter Visit Diagnoses Diagnosis Osteoporosis - Primary Osteoporosis, unspecified History of bisphosphonate therapy Personal history of other drug therapy Family history of hip fracture Family history of other musculoskeletal diseases documented in this encounter Care Teams Railroad Inspector Relationship Specialty Start Date End Date Alea Esqueda MD PCP - General 05/11/14 02/22/[address] [place] [phone] documented as of this encounter
--- OUTSIDE RECORDS SUMMARY | 2022-02-07 00:22 | XMS_ITS | Encounter Summary ---
:[address] [facility] Address [address] [place] [address] Care Team Providers Name Role Phone Alea Esqueda MD Primary Care Provider Encounter Details Date Type Department Care Team Description 11/12/2016 Results Only Imaging [facility]- Lilibeth Esqueda PRISM MD [phone] [address] [place], [place] [address] Social History Tobacco Use Types Packs/Day Years [...] Name Priority Date/Time Associated Diagnosis Comme nts MA 2D/3D BILATERAL 11/12/2016 11:16 Resul ts for this DELILAH ROUTINE EDT procedure are i n SCREENING MAMMO the results section. documented in this encounter Results MA 2D/3D BILATERAL DELILAH ROUTINE SCREENING MAMMO (11/12/2016 11:16 EDT) Anatomical Region Laterality Modality Other Specimen Narrative [facility] RADIOLOGY [facility] - 11/14/2016 11:38 EDT Comparison has been made to previous images. Bilateral Breast Findings: (Routine 3D t omosynthesis with synthesized 2D views with CAD) The breasts are heterogeneously dense (5 1% - 75% fibroglandular). This may lower the sensitivity of mammog annie. No significant masses, calcifications or other abnormal ities are seen. IMPRESSION: BILATERAL BREASTS: Negative, no evidence of malignancy. Normal interval follow-up is recommended in 12 months. OVERALL ASSESSMENT - CATEGORY 1 - NEGATI VE END OF IMPRESSION These results will be communicated to yo ur patient via a lay letter from Radiology. If any additional imagin g is needed we will contact your patient directly. I have personally reviewed the images an d the above interpretation and agree with the findings. Procedure Note Naz Treviño MD - 11/14/2016 Comparison has been made to previous danielle ges. Bilateral Breast Findings: (Routine 3D t omosynthesis with synthesized 2D views with CAD) The breasts are heterogeneously dense (5 1% - 75% fibroglandular). This may lower the sensitivity of mammog annie. No significant masses, calcifications or other abnormal ities are seen. IMPRESSION: BILATERAL BREASTS: Negative, no evidence of malignancy. Normal interval follow-up is recommended in 12 months. OVERALL ASSESSMENT - CATEGORY 1 - NEGATI VE END OF IMPRESSION These results will be communicated to yo ur patient via a lay letter from Radiology. If any additional imagin g is needed we will contact your patient directly. I have personally reviewed the images an d the above interpretation and agree with the findings. Performing Organization Address City/State/ZIP Code Phon e Number [facility] RADIOLOGY [facility] documented in this encounter Visit Diagnoses Not on filedocumented in this encounter Care Teams Geometrician Relationship Specialty Start Date End Date Alea Esqueda MD PCP - General 05/11/14 02/22/[address] [place] [id number] documented as of this encounter
--- OUTSIDE RECORDS SUMMARY | 2022-02-07 00:22 | XMS_ITS | Encounter Summary ---
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); Dermatology - [facility] Elliot Jacob MD [address] [facility], [address] [place] [address] Visit for suture removal [place] [facility], [facility] Dermatology Mohs [address] [place], [place] [id number] Social History Tobacco Use Types Packs/Day Years Used Date Former Smoker 1 4 Quit: 06/22/18 68 Smokeless Tobacco: Never Used Alcohol Use Standard Drinks/Week Comments No 0 (1 standard drink = 0.6 oz pure alcoho l) Sex Assigned at Date Recorded Female 05/26/2019 14:58 EST documented as of this encounter Discharge Diagnoses Diagnosis C44.01 Basal cell carcinoma of skin of l ip-C44.01[ICD-10-CM] Z48.02 Encounter for removal of sutures- Z48.02[ICD-10-CM] documented in this encounter Patient Instructions Patient InstructionsMike Jeffries - 12/24/2017 9:00 EDT [facility] DEPARTMENT OF DERMATOLOGY Wound Care Instructions 1. Wash wound daily with soap and water ??? this can be done while showering. Do not let the shower stream hit the wound directly. If you bathe in a tub, the bath should be brief. 2. Pat wound dry. 3. Apply a thin layer of vaseline to the wound. 4. Cover wound with a Band-Aid or a non-stick gauze pad and secure with tape. 5. Continue doing wound care until there is no more drainage. It is an old wives??? tale that a wound heals faster if it is exposed to air and allowed to dry out.The wound will heal faster and with a better cosmetic result if it is kept moist with ointment and covered with a bandage. Do not let the wound dry out. If the procedure required sutures, the suture line will be dark pink at first and the edges of the wound will be reddened. This will lighten up day by day and will be less tender. The suture line may also be firm, especially on the lip/chin area and will also fade with time. It may take up to 6-12 months for redness and firmness to fade. Numbness in the surgical area is expected. It might take 12-18 months for the feeling to return to normal. During this time, sensations of itchiness, tingling, and occasional sharp pains might be noted. These feelings are normal and will subside once the nerves have completely healed. Begin to massage the area 6 weeks after surgery. Massaging the area will help the scar soften and fade quicker. To massage, apply pressure directly and firmly over the scar with the fingertips and movelengthwise along the scar or in a circular motion. Massage the area for up to 10 minutes several times a day. About 6-8 weeks after surgery it is not uncommon to see tender 'pimple-like' bumps along the scar. This is normal as the scar continues to mature and the stitches underneath the skin begin to dissolve.Do not pick or squeeze ??? this will resolve on its own. Should one break open producing a small amount of drainage, apply polysporin or bacitracin ointment a few times a day until it is completely healed. CONTACT THE OFFICE If the wound becomes increasingly red, warm to touch, increased pain, drainage with a foul odor, rapid swelling of the wound, and/or if you develop a fever or chills, please call our office [phone] or . documented in this encounter Discharge Disposition Disposition Code Departure Means Destination Auto Discharge documented in this encounter Progress Notes Shelia Barboza RN - 12/24/2017 09 EDT WOUND CHECK NOTE CC: WOUND CHECK Ms Rojo is 9 days s/p Mohs micrographic surgery of basal cell carcinoma, right upper lip, on 12/17/[address] Barrios Wound edges: well-approximated, Wound Site: Healing well, no s/s infection Drainage: none PLAN: MA to remove sutures. Apply white petrolatum jelly Shelia Barboza RN 12/24/2017 Mike whitaker - 12/24/2017 0900 EDT Images from the original note were not included. SUTURE REMOVAL NOTE CC: SUTURE REMOVAL Ms. Rojo is status post MOHS of basal cell carcinoma on the right upper lip on 12/17/2017 by Elliot Jacob MD. SUBJECTIVE: Patient reports tender to touch and a pinching sensation OBJECTIVE: There were no vitals taken for this visit. Wound edges: well-approximated Wound Site: [place] along suture line Drainage: none PLAN: Wound cleansed from center outward with normal saline Sutures: all sutures removed Dressing: vaseline applied to area FOLLOW UP Patient advised to return to follow-up care in 3-4 months for MOHS FUR as planned or sooner if concern Post suture removal wound care instructions given to patient Note: I was supervised by Elliot Jacob MD who was present and immediately available in the office suite. Mike Jeffries 12/24/2017 8:45 documented in this encounter Plan of Treatment Not on filedocumented as of this encounter Visit Diagnoses Diagnosis Basal cell carcinoma (BCC) of upper lip - Primary Visit for suture removal Encounter for removal of sutures documented in this encounter Care Teams Records Supervisor Relationship Specialty Start Date End Date Alae Esqueda MD PCP - General 05/11/14 02/22/20 [address] [place] [address] documented as of this encounter
--- OUTSIDE RECORDS SUMMARY | 2022-02-07 00:22 | XMS_ITS | Encounter Summary ---
:1940 Author Organization [facility] Address [address] [place] [address] Care Team Providers Name Role Phone Ml Roche NP Primary Care Provider Reason for Visit Reason Onset Date Comments New/Evolving Symptoms 02/13/2021 Encounter Details Date Type Department Care Team Description 02/13/2021 Telephone [facility] Elliot Jacob, New/Evolving Symptoms Dermatology - [id number] [place] [address], [place] [address] (Wo rk) Social History Tobacco [...] making decisions? documented as of this encounter Miscellaneous Notes Telephone Encounter - Yared Farah - 02/14/2021 1729 EDT Sounds good. Thank you! elephone Encounter - Nahed Paul RN - 02/13/2021 0952 EDT S/P MOHS of basal cell carcinoma vertex scalp with simple linear repair and MOHS of basal cell carcinoma right forehead with Intermediate linear repair by Elliot Jacob MD 02/11/21 Patient reports she has bruising swelling of Right upper and lower eyelid. Swelling is soft an non tender. Reassurance given to patient that this is normal post op. She should sleep with her head elevated on several pillows, avoid foreward bending and heavy lifting. She can put teaspoons in the freezer and apply theses to the swelling periodically Throughout the day. Patient states she has not been sleeping with her head elevated and she will try this. NAHED PAUL RN 02/13/2021 10:04 elephone Encounter - Alia Albright - 02/13/2021 0948 EDT MOHs on Thursday, woke up with black eye today. Patient is wondering if this is a result of surgery documented in this encounter Plan of Treatment Not on filedocumented as of this encounter Visit Diagnoses Not on filedocumented in this encounter Care Teams Rating Examiner Relationship Specialty Start Date End Date Ml Roche NP PCP - General 11/12/[address] [place] [address] [address] [place] [id number] documented as of this encounter
--- OUTSIDE RECORDS SUMMARY | 2022-02-07 00:22 | XMS_ITS | Encounter Summary ---
:1940 Author Organization [facility] Address [address] [place] [address] Care Team Providers Name Role Phone Alea Esqueda MD Primary Care Provider Reason for Visit Reason Comments Follow-up Skin lesions Encounter Details Date Type Department Care Team Description 10/20/2019 Telemedicine [facility] Taylor Murdock sa, MD Scar condition and fibrosis of skin (Leticia tyson Dx); Dermatology - Main [address] [place] [address] Telangi ectasia of face; [address] History of basal cell cancer [address] [place], [place] [id number] [place] [address], [place] [phone] (Wo rk) Social History Tobacco Use Types [...] documented as of this encounter Progress Notes Diana Bell MD - 10/20/2019 1000 EDT Images from the original note were not included. DIVISION OF DERMATOLOGY TELEMEDICINE (VIDEO) ENCOUNTER NOTE - 10/20/2019 Given current COVID19/Coronavirus Pandemic and universal recommendations to practice social distancing to minimize infectious spread, phone call was made to patient to convey the following policy: Recommend rescheduling non-urgent non- essential dermatology visits to either a later date or conduct the presently scheduled visit as a telehealth visit based upon the nature of the chief complaint, presentskin concerns, and past dermatological history. Today's visit was provided through telemedicine video conferencing: ??? Patient location: Home ??? Provider location:Home Verbal consent: The concept of ???Telemedicine?? has been described to the patient.Patient has been informed of theanticipated benefits and possible risks. Patient understands the information provided regarding telemedicine, has had the opportunity to ask questions about this information, and all questions have been answered to patient???s satisfaction. Patient consents for the use of telemedicine in his/her medical care and authorizes the transmission of any relevant medical information to providers and their staff involved in patient???s medical or mental health care. Verbal consent obtained by myself or auxiliary staff: yes. Chief Complaint Patient presents with ??? Follow-up Skin lesions DERMATOLOGIC HISTORY: 1. History of multiple basal cell carcinomas including barragan, forehead, thigh, presybeterian and eyelid - upper lip s/p Mohs 2018 - left inferior neck (superficial BCC) s/p shave removal with neg margins 2. Rosacea 3. Seborrheic keratoses Last dermatology visit: 10/2018 SUBJECTIVE: Ms. Rojo presents presents for a telemedicine video visit for two concerns: 1. Left neck at previous biopsy site for a superficial BCC has healed well after shave removal, but now has a red rim around the white scar, which is concerning her. It is asymptomatic. Does not noticeany scaling or bleeding at this site. 2. Right nasal root in vicinity of previous cryotherapy is a red macule that does not bleed, itch, or open up. She has been wearing glasses more frequently after an eye surgery and feels that they sit in this area. Also thinks there may be some swelling in this area that is asymptomatic. -She is otherwise feeling well and has no other cutaneous concerns today. She denies any other new, changing, bleeding, tender, or non-healing skin lesions today. I have reviewed patient's tobacco history: reports that she quit smoking about 54 years ago. She hasa 4.00 pack-year smoking history. She has never used smokeless tobacco. For full Medical, Surgical, Family, and Social histories as well as Review of Systems, Medications and Allergies please see those sections of this encounter in the electronic chart which I have personally reviewed. OBJECTIVE: The patient is a alert appearing 79 y.o.-year-old female. Visual examination of the patient's Cutaneous focused exam of the face and neck was performed. All findings within normal limits unless otherwise noted below: ?? The skin visualized appeared normal. Photos sent by patient: -left lateral inferior neck with well-healed round hypopigmented scar with mild scale and erythema at the anterior edge -right nasal root with round to rectangular erythematous 2 mm macule with surrounding mild edema (per patient) -superior and medial to this on the central nasal root is a hypopigmented macule ASSESSMENT & PLAN: 1. Scar condition and fibrosis of skin -Left lateral neck hypopigmented scar s/p shave removal of superficial BCC. There appears to be possible mild scale and erythema at the anterior edge, which may represent an actinic keratosis, recurrent BCC, or xerosis cutis. Does not appear worrisome from photo, but will evaluate in the next few months. -Discussed empiric treating with topical imiquimod for possible recurrent superficial BCC, but prefer to evaluate in person first, which patient agrees with. 2. Telangiectasia of face -May be secondary to irritation from ill-fitting glasses. -Will re-evaluate in office in next few months to rule out skin cancers or other diagnoses. 3. History of basal cell cancer -Encouraged sun protection. Follow up: She will Return in about 4 months (around 02/19/2020) for FBSE. Patient understands to call in the interim if new concerns arise. This visit was conducted by video. I spent a total of 10 minutes in discussion with the patient as described in the progress note. The following individuals and their role did participate in today's encounter visit: Provider: Diana Bell MD Patient: Ms. Rojo Billing Codes: [place], [id number] Diana Bell MD 10/20/2019 10:14 Attestation Statement: I saw and examined the patient with the resident/fellow. I agree with the findings and plan of care documented in the resident's/fellow's note. Yolanda Murdock MD Dermatology [facility] Manuel mercado MA - 10/20/2019 1000 EDT Review of Systems Constitutional: Negative for [...] sleep disturbance. The patient is not nervous/anxious. MANUEL CARMONA MA 10/20/2019 10:01 documented in this encounter Plan of Treatment Not on filedocumented as of this encounter Visit Diagnoses Diagnosis Scar condition and fibrosis of skin - Pr imary Telangiectasia of face Other and unspecified capillary diseases History of basal cell cancer Personal history of other malignant neop lasm of skin documented in this encounter Historical Medications This list may reflect changes made after this encounter. Medication Sig Dispensed Refills Start Date End Date DILTIAZEM HCL ORAL Take 50 mg by mouth 2 times 0 daily. added in this encounter Care Teams Ground Instructor Basic Relationship Specialty Start Date End Date Alea Esqueda MD PCP - General 05/11/14 02/22/[address] [place] [id number] documented as of this encounter
--- OUTSIDE RECORDS SUMMARY | 2022-02-07 00:22 | XMS_ITS | Encounter Summary ---
:1940 Author Organization [facility] Address [address] [place] [address] Care Team Providers Name Role Phone Ml Roche NP Primary Care Provider Reason for Visit Reason Comments Follow-up Skin lesions Encounter Details Date Type Department Care Team Description 03/04/2021 Office Visit [facility] Taylor Murdock sa, MD Seborrheic keratosis (Primary Dx); Dermatology - Main [address] [place] [address] Rosace ; [facility] Actinic skin damage; [address] [place] [address] History of malignant neoplas m of skin; [place] [address] [address] Scar [phone] [place] [address] (Wo rk) Social History Tobacco [...] making decisions? documented as of this encounter Ordered Prescriptions Prescription Sig Dispensed Refills Start Date End Date Alessandroic Acid (FINACEA) 15 Apply topically to 50 g 6 % gelIndications: Rosacea affected area 2 times daily. Use on face documented in this encounter Progress Notes Radha Coates MA - 03/04/2021 1340 EDT Review of Systems Constitutional: Negative for [...] sleep disturbance. The patient is not nervous/anxious. RADHA COATES MA 03/04/2021 13:41 hRose Marie alarcon MD - 03/04/2021 1340 EDT DERMATOLOGY OUTPATIENT VISIT NOTE Chief Complaint Patient presents with ??? Follow-up Skin lesions Dermatologic History: 1. History of multiple basal cell carcinomas including barragan, forehead, thigh, yarsanism and eyelid - left supraclavicular neck s/p shave removal with neg margins 08/2013 - upper lip s/p Mohs 2018 - left neck s/p shave removal with neg margins 10/2018 - BCC, left chin, left inferior neck, and left post-auricular neck, s/p shave biopsy on 02/23/2020 - s/p Mohs 2. Rosacea 3. Seborrheic keratoses Last Dermatology office visit: 11/12/2020 SUBJECTIVE Ms. Rojo is a 80 y.o. female who presents for new evaluation and treatment for multiple raised brown spots on her back. She says that she cannot see these very easily because of their location and would like them examined today. They are asymptomatic and do not bleed, itch, or bother her. She is justaware that they are present. Otherwise, she feels well today and has had no major changes to her health and/or skin since her last appointment. She has no other cutaneous concerns today and denies having any other skin lesions that are bleeding, painful, enlarging, or changing colors. She has a current medication list which includes the following prescription(s): apixaban, ascorbic acid, aspirin, azelaic acid, calcium carbonate, cholecalciferol (vitamin d3), diltiazem hcl, diphenhydramine hcl, ibuprofen, metoprolol tartrate, metronidazole, minocycline, multivitamin, vitamin b comple x, and vitamin k2. She is allergic to meclizine. OBJECTIVE Ms. Rojo is well developed, well-nourished, in no acute distress, cooperative and interactive female sitting on the examination table with a normal affect. She has Bucio type II skin. Cutaneous full body examination including the hair, scalp, face, eyelids, lips, neck, chest, back, abdomen, allfour extremities, hands, feet, digits and nails was performed. A full cutaneous skin examination including the genitalia was offered, but patient declines today. - Several erythematous patches across cheeks and nasal bridge. No papules or pustular components present today. - Blotchy, uneven discoloration of skin in addition to numerous hyperpigmented macules in photodistribution. - Well-healed scars on scalp, face, neck without ulceration, nodularity, or evidence of recurrence. ASSESSMENT and PLAN #. Rosacea of face - currently well-controlled on topical azelaic acid 15% gel - Reassurance provided, patient counseled on the benign nature of this condition. - Continue azelaic acid 15% gel BID as needed. Refill sent to pharmacy. - Continue diligent sun protective measures. Avoid triggers. #. Seborrheic keratoses - Reassurance provided, patient counseled on the benign nature of these lesions. No intervention is required. #. Actinic skin damage #. 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 Jacob) #. Scars - Most recent sites of surgery on left lower lip/chin region, right forehead, and top of scalp are well-healing scars. Top of scalp has healthy appearing granulation tissue and is well moistened with Vaseline. Continue local wound care. No evidence of infection today. - Well-healed scars without evidence of recurrence. - The nature of sun-induced photo-aging and skin cancers is discussed. Sun avoidance, protective clothing, and the use of OTC broad spectrum 50+-SPF sunscreens with both UVA and UVB coverage is advised. Observe closely for skin damage/changes, and call if such occurs. Med Orders Placed This Visit and Additions to the Medication List Medications ??? Azelaic Acid (FINACEA) 15 % gel Sig: Apply topically to affected area 2 times daily. Use on face Dispense: 50 g Refill: 6 FOLLOW-UP She will Return in about 6 months (around 09/01/2021) for FBSE, hx of multiple JUDY's. Rose Marie Altman MD Attestation Statement: I saw and examined the patient with the resident/fellow. I agree with the findings and plan of care documented in the resident's/fellow's note. Yolanda Murdock MD Dermatology [facility] documented in this encounter Plan of Treatment Not on filedocumented as of this encounter Visit Diagnoses Diagnosis Seborrheic keratosis - Primary Other seborrheic keratosis Rosacea Actinic skin damage Other dermatitis due to solar radiation History of malignant neoplasm of skin Personal history of other malignant neop lasm of skin Scar Scar condition and fibrosis of skin documented in this encounter Discontinued Medications Medication Sig Discontinue Reason Start Date End Date Azelaic Acid (FINACEA) Apply topically to Reorder 10/21/2018 03/04/2021 15 % gelIndications: affected area 2 times Rosacea daily. Use on face documented as of this encounter Care Teams Mine Manager Relationship Specialty Start Date End Date Ml Roche NP PCP - General 11/12/20 [address] [place] [id number] documented as of this encounter
--- OUTSIDE RECORDS SUMMARY | 2022-02-07 00:22 | XMS_ITS | Encounter Summary ---
:[address] [facility] Address [address] [place] [address] Care Team Providers Name Role Phone Ml Roche NP Primary Care Provider Encounter Details Date Type Department Care Team Description 10/24/2021 Lab Requisition [facility] Outr Resulting Lab, Pathology & Laboratory Provider Medicine [facility] [address] [place], [place] [id number] Social History Tobacco Use Types Packs/Day Years [...] making decisions? documented as of this encounter Plan of Treatment Not on filedocumented as of this encounter Procedures Procedure Name Priority Date/Time Associated Comments Diagnosis HIV 1/2 ANTIGEN AND Routine 10/24/2021 11:41 Resu lts for this ANTIBODY, 4TH EDT procedure are in GENERATION the results section. documented in this encounter Results HIV 1/2 ANTIGEN AND ANTIBODY, 4TH GENERATION (10/24/2021 11:41 EDT) HIV 1 and 2 NegativeComment: If Negative [facility] Antibody/p24 acute HIV-1 LABORATORY Antigen, 4th infection is SERVICES Generation suspected in a high risk patient, submit plasma specimen for HIV-1 RNA quantitation test. Specimen Blood - Venous blood (substance) Narrative [facility] LABORATORY SERVICES - 10/25/2021 10:58 EDT Fourth Generation assay performed on the Siemens [employer] XPT. Performing Organization Address City/State/ZIP Code Phon e Number [facility] LABORATORY [address] [place] [address] SERVICES documented in this encounter Visit Diagnoses Not on filedocumented in this encounter Care Teams Air Twist Operator Relationship Specialty Start Date End Date Ml Roche NP PCP - General 11/12/[address] [place] [address] [address] [place] [address] documented as of this encounter
--- OUTSIDE RECORDS SUMMARY | 2022-02-07 00:22 | XMS_ITS | Encounter Summary ---
:[address] [facility] Address [address] [place] [address] Care Team Providers Name Role Phone Alea Esqueda MD Primary Care Provider Reason for Visit Reason Onset Date Comments Wound Care 12/21/2017 Encounter Details Date Type Department Care Team Description 12/21/2017 Telephone [facility] Ruben Jacob MD Wound Care Dermatology [facility] [address] [address] [address], [place], [place] [address] (Wo rk) Social History Tobacco Use Types Packs/Day Years Used Date Former Smoker 1 4 Quit: 06/22/18 68 Smokeless Tobacco: Never Used Alcohol Use Standard Drinks/Week Comments No 0 (1 standard drink = 0.6 oz pure alcoho l) Sex Assigned at Date Recorded Female 05/26/2019 14:58 EST documented as of this encounter Miscellaneous Notes Telephone Encounter - Manuel Li RN - 12/21/2017 1058 EDT Spoke with pt who notes that she has bruising that has developed below her incision line and down along her lip. Pt denies any increase in pain, swelling, drainage, just looking for reassurance re: bruising post operatively. Reassured pt and advised her to call should anything change at all. Pt is already on the schedule the 24 of December for suture removal. elephone Encounter - Antoinette Henriquez - 12/21/2017 1049 EDT Patient had mohs procedure on her lip on 12/[address] Jacob. She states she would like to know ifthe excessive bruising is normal. It started right after procedure then eventually spread. Please estephania to discuss. documented in this encounter Plan of Treatment Not on filedocumented as of this encounter Visit Diagnoses Not on filedocumented in this encounter Care Teams Program Evaluation Consultant Relationship Specialty Start Date End Date Alea Esqueda MD PCP - General 05/11/14 02/22/[address] [place] [id number] documented as of this encounter
--- OUTSIDE RECORDS SUMMARY | 2022-02-07 00:22 | XMS_ITS | Encounter Summary ---
:[address] [facility] Address [address] [place] [address] Care Team Providers Name Role Phone Alea Esqueda MD Primary Care Provider Unknown, Provider Primary Care Provider Ml Roche NP Primary Care Provider Encounter Details Date Type Department Care Team Description 11/12/2019 Lab Requisition [facility] Outr Resulting Lab, Pathology & Laboratory Provider [facility] [address] [place] [address] Social History Tobacco Use Types Packs/Day Years Used Date Never Assessed Sex Assigned at Date Recorded Female 05/26/2019 [...] Procedure Name Priority Date/Time Associated Comments Diagnosis DO NOT ORDER Today 11/12/2019 11:00 Results for this STANDALONE - BROAD EDT procedure are in COVID TEST the results section. COVID-19 TESTING Routine 11/12/2019 11:00 Results for this EDT procedure are i n the results section. documented in this encounter Results DO NOT ORDER STANDALONE - [facility] COVID TEST (11/12/2019 11:00 EDT) COVID-19 rt-PCR NEGATIVE Negative [facility] Result Comment: LABORATORY 2019-novel Coronavirus (2019 -nCoV) not detected by the qRT-PCR assay. Consider testing for other respiratory viruses or re-collecting for 2019-nCoV testing. Note: Optimum timing for peak viral levels du ring infections caused by 20 -nCoV have not been determined. Collection of multiple specimens from the same patient may be necessary to detect the virus. Limitations Positive results are indicat rima of active infection with SARS-CoV-2 but do not rule out bacterial infection or co-infection with other viruses. The agent detected may not be the definite cause of diseas e. In addition, detection of viral RNA may not indicate the presence of infectious virus or that SARS-CoV-2 is the causative agent for clinical symptoms. Negative results do not prec lude SARS-CoV-2 infection and should not be used as the sole basis for patient management decisions. Negative results must be combined with clinical observations, patient his tory, and epidemiological in formation. False negative results may also occur if amplification inhibitors are present in the specimen or if inadequate numbers of organisms are present in the specimen. Op timum specimen types and cintia ing for peak viral levels during infections caused by SARS-CoV-2 have not been fully determined. Collection of multiple specimens (types and time points) from the same patient may be necessary to detect the virus. The test was validated for [facility] with upper respiratory specimens obtained via nasopharyngeal or oropharyngeal swabs in VTM, UTM, M4, M5, M6, saline, and MTM media. The performance of this test has not be en established for other [facility]. Specimens collected using other FDA recommended Specimen Collection Materials listed in the FDA COVID-19 [employer] communication (September 15, 2019) are pr ocessed with the caveat that they were not all validated for use with this test and the result must be interpreted in this context. Furthermore, a false negative results may occur if a specimen is improperly collected, transported or handled. If the virus mutates in the RT-PCR target region, SARS-CoV-2 may not be detected or may be detected less predictably. Inhibitors or other types of interference may produce a false negative result. An interference study evaluating the effect of common cold medications was not performed. This test is not FDA-cleared but its performance characteristics were established by our CLIA-certified, CAP-accredited, high complexity laboratory in accordance with CLIA regulations, College of [employer]ologists (CAP) guidel demetria (Sep 08, 2019), and FDA guidance (Aug 20, 2019). This test is only for use un rubi the Food and Drug Administration's Emergency Use Authorization. Specimen Swab - Entire nasopharynx (body structur e) Performing Organization Address City/State/ZIP Code Phon e Number [facility] LABORATORY [facility] [employer] [place] COVID-19 TESTING (11/12/2019 11:00 EDT) COVID-19 rt-PCR NEGATIVE Negative [facility] Result Comment: LABORATORY 2019-novel Coronavirus (2019 -nCoV) not detected by the qRT-PCR assay. Consider testing for other respiratory viruses or re-collecting for 2019-nCoV testing. Note: Optimum timing for peak viral levels du ring infections caused by 20 -nCoV have not been determined. Collection of multiple specimens from the same patient may be necessary to detect the virus. Limitations Positive results are indicat rima of active infection with SARS-CoV-2 but do not rule out bacterial infection or co-infection with other viruses. The agent detected may not be the definite cause of diseas e. In addition, detection of viral RNA may not indicate the presence of infectious virus or that SARS-CoV-2 is the causative agent for clinical symptoms. Negative results do not prec lude SARS-CoV-2 infection and should not be used as the sole basis for patient management decisions. Negative results must be combined with clinical observations, patient his tory, and epidemiological in formation. False negative results may also occur if amplification inhibitors are present in the specimen or if inadequate numbers of organisms are present in the specimen. Op timum specimen types and cintia ing for peak viral levels during infections caused by SARS-CoV-2 have not been fully determined. Collection of multiple specimens (types and time points) from the same patient may be necessary to detect the virus. The test was validated for u se with upper respiratory specimens obtained via nasopharyngeal or oropharyngeal swabs in VTM, UTM, M4, M5, M6, saline, and MTM media. The performance of this test has not be en established for other spe cimens. Specimens collected using other FDA recommended Specimen Collection Materials listed in the FDA COVID-19 [employer] communication (September 15, 2019) are pr ocessed with the caveat that they were not all validated for use with this test and the result must be interpreted in this context. Furthermore, a false negative results may occur if a specimen is improperly collected, transported or handled. If the virus mutates in the RT-PCR target region, SARS-CoV-2 may not be detected or may be detected less predictably. Inhibitors or other types of interference may produce a false negative result. An interference study evaluating the effect of common cold medications was not performed. This test is not FDA-cleared but its performance characteristics were established by our CLIA-certified, CAP-accredited, high complexity laboratory in accordance with CLIA regulations, College of [employer] an Pathologists (CAP) guidel demetria (Sep 08, 2019), and FDA guidance (Aug 20, 2019). This test is only for use un rubi the Food and Drug Administration's Emergency Use Authorization. Performing Lab [facility] LABORATORY SERVICES Specimen Swab - Entire nasopharynx (body structur e) Performing Organization Address City/State/[facility] Code Phon e Number [facility] [address] [place] [address] SERVICES [facility] [employer] [place] documented in this encounter Visit Diagnoses Not on filedocumented in this encounter Care Teams Washery Engineer Relationship Specialty Start Date End Date Alea Esqueda MD PCP - General 05/11/14 02/22/[address] [place] [id number] Unknown, Provider, PCP - General 11/07/20 11/11/20 Ml Roche NP PCP - General 11/12/[address] [place] [address] [address] [place] [id number] documented as of this encounter
--- OUTSIDE RECORDS SUMMARY | 2022-02-07 00:22 | XMS_ITS | Encounter Summary ---
:1940 Author Organization [facility] Address [address] [place] [address] Care Team Providers Name Role Phone Unavailable Primary Care Provider Unavailable Reason for Visit Reason Comments Mohs Consult BCC left chin, left posauric ular neck, left inferior neck. ELIQUIS NO pacemaker, NO joints Encounter Details Date Type Department Care Team Description 03/19/2020 Telemedicine [facility] Mayela Boyd aman l carcinoma (BCC) of chin (Primary Dx); Dermatology - [facility] Macrina Ryder MD Basal cell carcinoma (BCC) of left posta uricular region; [place] [address] Basal cell carcinoma (BCC) o f left side of neck [address] [phone] [facility] [address] [place] [address] (Wo rk) Social History Tobacco [...] documented as of this encounter Progress Notes Gerald Peterson MD - 03/19/2020 1030 EDT Images from the original note were not included. DERMATOLOGY TELE-VIDEO VISIT FOLLOW-UP 03/19/2020 Dermatology History: 1. History of multiple basal cell carcinomas including barragan, forehead, thigh, baptism and eyelid - left supraclavicular neck s/p shave removal with neg margins 08/2013 - upper lip s/p Mohs 2018 - left neck s/p shave removal with neg margins 10/2018 - BCC, left chin, left inferior neck, and left post-auricular neck, s/p shave biopsy on 02/23/2020 - referred for Mohs 2. Rosacea 3. Seborrheic keratoses MOHS EVALUATION NOTE Chief Complaint Patient presents with ??? Mohs Consult BCC left chin, left posauricular neck, left inferior neck. ELIQUIS Subjective: Brooke Rojo is a 79 y.o. year old female who is referred to me for evaluation and treatment of a basal cell carcinoma of the left chin, left inferior neck (recurrence, had prior shave removal in 11/2017), and left postauricular neck by Evelyn Watson MD. The patient is referred to consider Mohs surgeryversus other treatment options. The patient notes that these lesions have been present for several months, and reports no symptoms. The patient???s risk factors for skin cancer include history of basalcell carcinoma. ?? Surgical Risk factors: Pacemaker/ICD/Deep brain stimulator: None Anticoagulants: Apixaban (Eliquis) 5 mg BID Total joint replacements/valves: None Allergies: Patient is allergic to meclizine. Irritation from bandage adhesive. Immunosuppression: None. Former smoker (only smoked for a few years in her 20s). History of atrial fibrillation and bronchiectasis. For full Medical, Surgical, Family, and Social histories as well as Review of Systems, Medications and Allergies please see those sections of this encounter in the electronic chart which I have personally reviewed. Objective: The patient is a alert appearing 79 y.o.-year-old female. She has Bucio type II skin. Cutaneous focused exam of the face and neck was performed.. All findings within normal limits unless otherwise noted below: ?? On the left chin, there is a pink scaly plaque with healing shave biopsy site ?? On the left inferior neck, there is a pink scaly plaque with healing shave biopsy site ?? On the left post-auricular neck, there is pink scaly macule with healing shave biopsy site ?? The remainder of the skin visualized appeared normal. (Per Dr. Watson the red [place] on the L chin was biopsied- the blue lesion was suspicious but not biopsied) Pathology: A. SKIN OF CHIN, LEFT, SHAVE BIOPSY: - Basal cell carcinoma, nodular type, involving the biopsy base and peripheral edge. ?? B. SKIN OF NECK, LEFT INFERIOR, SHAVE BIOPSY: - Basal cell carcinoma, superficial multifocal type, involving peripheral edges. Over site of prior shave removal. Recurrent/incomplete removal. ?? C. SKIN OF NECK, LEFT POSTAURICULAR, SHAVE BIOPSY: - Basal cell carcinoma, nodular type, pigmented, involving the biopsy base and peripheral edges. 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 Rojo and I discussed the meaning of the diagnosis of skin cancer and the options for treatment including curettage and electrodesiccation, radiation therapy, conventional excision, and excision byMohs micrographic surgery. Due to the need for a high cure rate and optimum functional and aestheticoutcome, I feel that Mohs surgery is indicated for all threeh lesions. Patient's Mohs Appropriate Use Criteria (AUC) score (0-9) is: 8 for left chin, 7 for left neck recurrence, 8 for left postauricular neck. We discussed that we will likely perform Mohs surgery on the lesions on the neck on one day and will then schedule for Mohs surgery on the chin on another day, but this will be further discussedon the day of surgery. The risks of Mohs surgery and potential reconstructive surgery, including butnot limited to, bleeding, scarring, infection, recurrence, injury to functionally or cosmetically important nerve structures and an unsatisfactory cosmetic result were reviewed. The patient was given an opportunity to ask questions, and I believe that all of her questions were answered satisfactorily.In addition the patient was provided with written material that describes the Mohs procedure and related matters. Ms. Rojo understands that following Mohs surgery an operative repair may be required and may involve substantial suturing. We have jointly planned to have residents, fellows, and physician assistants repair the wounds on the day of surgery if needed. She understands that following reconstruction, if performed, many months may elapse before a decision can be made about the final cosmetic result, and that, in some cases a revision may be necessary to optimize the outcome. I explained to Ms. Rojo that in addition to the risk of recurrence from her skin cancer she has an increased risk of developing additional new skin cancers elsewhere. For that reason, follow up for ongoing skin surveillance examinations, after surgery, will be imperative. The patient has been scheduled to undergo surgery at the next available appointment with Dr. Jacob (he has performed multiple Mohs surgeries on the patient before). Today's visit was provided through telemedicine video conferencing: ??? Patient location: HOME ??? Provider location: HOME ??? The following staff participated in today's encounter visit: Gerald Peterson MD and Macrina Boyd MD The concept of ???Telemedicine?? has been described to the patient.? Patient has been informed of the anticipated benefits and possible risks.? Patient understands the information provided regarding telemedicine, has had the opportunity to ask questions about this information, and all questions have been answered to patient???s satisfaction. Patient consents for the use of telemedicine in his/her medical care and authorizes the transmission of any relevant medical information to providers and theirstaff involved in patient???s medical or mental health care. ??? For full Medical, Surgical, Family, and Social histories as well as Review of Systems, Medications and Allergies please see those sections of this encounter in the electronic chart which I have personally reviewed. Gerald Peterson MD Dermatology, PGY-2 03/19/2020 10:28 [facility], Division of Dermatology Attestation statement: I saw and examined the patient with the resident/fellow. I agree with the findings and plan of care documented in the resident's/fellow's note. Macrina Boyd MD Dermatology & Mohs Surgery pack worker supervisor, Dermatology Division [facility] 03/19/2020 12:36 documented in this encounter Plan of Treatment Not on filedocumented as of this encounter Visit Diagnoses Diagnosis Basal cell carcinoma (BCC) of chin - Leticia tyson Basal cell carcinoma (BCC) of left posta uricular region Basal cell carcinoma (BCC) of left side of neck documented in this encounter
--- OUTSIDE RECORDS SUMMARY | 2022-02-07 00:22 | XMS_ITS | Encounter Summary ---
:1940 Author Organization [facility] Address [address] [place] [address] Care Team Providers Name Role Phone Ml Roche NP Primary Care Provider Reason for Visit Reason Comments Suture / Staple Removal scalp Encounter Details Date Type Department Care Team Description 02/26/2021 Nurse Only [facility] Nursing Team, [facility] Ba makeda cell carcinoma, scalp/neck (Primary Dx); Dermatology - Main Dermatology Mohs Basal cell carcinoma, forehead; [place] Visit for suture removal [address] [place] [address] Social History Tobacco Use Types Packs/Day Years [...] as of this encounter Patient Instructions Patient InstructionsDee Boss MA - 02/26/2021 11:15 EDT [facility] DEPARTMENT OF DERMATOLOGY Wound Care Instructions [...] fever or chills, please call our office [phone] or . documented in this encounter Progress Notes Dee Boss MA - 02/26/2021 1116 EDT Images from the original note were not included. SUTURE REMOVAL NOTE CC: SUTURE REMOVAL Ms. Rojo is status post MOHS of basal cell carcinoma on the vertex scalp and on the right forehead on 02/11/2021 by Elliot Jacob MD. SUBJECTIVE: Patient reports no concern OBJECTIVE: There were no vitals taken for this visit. Wound edges: well-approximated, center of vertex scalp healing by second intention Wound Site: granulation tissue and pink on the scalp, and pink along repair line on the forehead. Drainage: Serosanguineous from scalp, none from forehead PLAN: Wound cleansed from center outward with normal saline Sutures: all sutures removed Dressing: vaseline dressing applied FOLLOW UP Patient advised to return to follow-up care as planned or sooner if concern Post suture removal wound care instructions given to patient Note: I was supervised by Elliot Jacob MD who was present and immediately available in the office suite. DEE BOSS MA 02/26/2021 13:19 DEE BOSS MA 02/26/2021 13:17 documented in this encounter Plan of Treatment Not on filedocumented as of this encounter Visit Diagnoses Diagnosis Basal cell carcinoma, scalp/neck - Prima ry Basal cell carcinoma of scalp and skin o f neck Basal cell carcinoma, forehead Visit for suture removal Encounter for removal of sutures documented in this encounter Care Teams Contracts Officer Relationship Specialty Start Date End Date Ml Roche NP PCP - General 11/12/[address] [place] [id number] documented as of this encounter
--- OUTSIDE RECORDS SUMMARY | 2022-02-07 00:22 | XMS_ITS | Encounter Summary ---
:1940 Author Organization [facility] Address [address] [place] [address] Care Team Providers Name Role Phone Alea Esqueda MD Primary Care Provider Encounter Details Date Type Department Care Team Description 12/11/2017 Results Only [facility] Julio Cesar Flores MD [phone] [facility] [place], [place] [address] (Wo rk) Social History Tobacco Use Types [...] Name Priority Date/Time Associated Diagnosis Comme nts PAP TEST- RESULT Routine 12/11/2017 0:00 EDT Resu lts for this ONLY procedure are i n the results section. documented in this encounter Results PAP TEST- RESULT ONLY (12/11/2017 0:00 EDT) Pathology Report: CYTOPATHOLOGY REPORT [facility] Reports generated via electronic interface contain sharmila ginal data; SERVICES however they are lacking the format of the original re port. Caution should be taken when reading/interpreting unfo rmatted reports. Name: ? FEDE ROJO ? Accession #: ? [id number] ? : ? 1940 (Age: [age]) ??F ?Collect Date: ? 12/11/2017 ? Location: ? [facility] ? Receive Date: ? 12/15/19 18 ? Provider: JULIO CESAR FLORES MD Copy to: ? Final Report SPECIMEN ADEQUACY ? Satisfactory for Evaluation - transformation zone component present - scant squamous epithelial component GENERAL CATEGORIZATION ? Negative for Intraepithelial Lesion or Malignan cy ?? Specimen/Source: ??Pap Test, Cervix/Endocervix, ThinPr ep Imaging System with manual evaluation Document reviewed and electronically signed by: ? Lilli Arriaga, DUSTY(ASCP) ? Report ??Date: 12/21/2017 10:44 HPV with Pap Test ? Date Ordered: ? 12/21/2017 ? Status: ?? S igned Out ?Date Complete: ? 12/22/2017 ? By: ??Sys tem Interface ? Date Reported: ? 12/22/2017 ? Interpretation RESULT: Negative for HPV. No E6 or E7 mRNA is detected from HPV types 16,18,31,3 3,35, 39,45,51,52,56,58,59,66, and 68 by men's and boys' clothing salesperson media analy amplification. Comments Document reviewed and electronically signed by: ? System Interface ? Report date: 12/22/2017 By the signature above, the attending physician certif ies that he/she has personally conducted a gross and/or microscopic examin ation of the described specimens and rendered or confirmed the above diagnosi s. End of Report Specimen Performing Organization Address City/State/ZIP Code Phon e Number [facility] [address] [place] [address] SERVICES documented in this encounter Visit Diagnoses Not on filedocumented in this encounter Care Teams Engine Builder Relationship Specialty Start Date End Date Alea Esqueda MD PCP - General 05/11/14 02/22/[address] [place] [phone] documented as of this encounter
--- OUTSIDE RECORDS SUMMARY | 2022-02-07 00:22 | XMS_ITS | Encounter Summary ---
:1940 Author Organization [facility] Address [address] [place] [address] Care Team Providers Name Role Phone Alea Esqueda MD Primary Care Provider Reason for Visit Reason Comments Follow-up Remove SK's Encounter Details Date Type Department Care Team Description 11/01/2018 Office Visit [facility] Taylor Murdock sa, MD Seborrheic Dermatology - [address] (Primary Dx) [address] [place] [address] [address], [place] [address] (Wo rk) Social History Tobacco [...] as of this encounter Patient Instructions Patient InstructionsYolanda Murdock MD - 11/01/2018 15:45 EDT WOUND CARE INSTRUCTIONS FOR CRYOSURGERY (FREEZING THERAPY) Treatment with liquid nitrogen (cryosurgery) causes localized swelling, throbbing, and blister formation. Do not pop an intact blister. If the blisters open, apply Vaseline/petroleum jelly daily until the area heals. We do not recommend the use of triple antibiotic ointment or other ointments as they can cause allergic reactions and do not significantly reduce the incidence of infection, which is very rare to startwith. . CONTACT THE OFFICE IF YOU EXPERIENCE: ?? increasing redness ?? warmth to touch ?? increasing pain ?? drainage with a foul odor ?? rapid swelling of the wound ?? fever or chills It was a pleasure taking care of you today. Please call our office or if you have any concerns or questions. documented in this encounter Progress Notes Yolanda Murdock MD - 11/01/2018 3215 EDT CRYOSURGERY PROCEDURE NOTE PATIENT INFORMATION: Brooke Rojo : MRN: [id number] PROVIDER: Yolanda Murdock MD The indication, risks, benefits and alternatives to this procedure were discussed in detail with thepatient and questions were answered. The below noted lesions were then destroyed with liquid nitrogen cryosurgery using two freeze- thaw cycles. The expected healing course was discussed, and it was noted that sometimes lesions do not fully resolve, and cryosurgery can cause a white spot or a scar. Verbal wound care instructions were given. SITE/LESION TYPE/DIAGNOSIS: Lesion(s) A: Location: Right inframammary fold, back, flanks, chest, abdomen Lesion Type/Diagnosis: 20 irritated seborrheic keratosis(es) Cosmetic removal- $200 charged to the patient. Note: patient was also reassured that biopsy wound of left neck is not concerning for infection and she may have reacted to adhesive. Bandaged in clinic today. ?? Yolanda Murdock MD 11/01/2018 17:06 Yesenia Alexis - 11/01/2018 1545 EDT Review of Systems Constitutional: Negative for [...] sleep disturbance. The patient is not nervous/anxious. Yesenia Girard 11/01/2018 16:09 documented in this encounter Plan of Treatment Not on filedocumented as of this encounter Visit Diagnoses Diagnosis Seborrheic keratoses, inflamed - Primary documented in this encounter Care Teams Turning Machine Set Up Operator Relationship Specialty Start Date End Date Alea Esqueda MD PCP - General 05/11/14 02/22/[address] [place] [id number] documented as of this encounter
--- OUTSIDE RECORDS SUMMARY | 2022-02-07 00:22 | XMS_ITS | Clinical Summary ---
:1940 Author Organization [facility] Address [address] [place] [address] Care Team Providers Name Role Phone Ml Roche NP Primary Care Provider Allergies Active Allergy Reactions Severity Noted Date Comments Meclizine Hives, Rash 10/09/2011 Medications Medication Sig Dispensed Refills Start Date End Date Status MULTIVITAMINS Take 1 Tablet by 0 Active (MULTI-VITAMIN ORAL) mouth daily. CALCIUM CARBONATE Take 1 Tab by 0 Active (CALCIUM 600 ORAL) mouth daily. Reported on 11/12/2016 Cholecalciferol, Vitamin Take 500 Units 0 Active D3, (VITAMIN D) 1,000 by mouth daily. unit Cap IBUPROFEN ORAL Take by mouth as 0 03/06/2010 Active needed. ASCORBATE CALCIUM Take by mouth as 0 Active (VITAMIN C ORAL) needed. Reported on 11/12/2016 aspirin 81 mg EC tablet Take 81 mg by 0 Active mouth daily. Reported on 11/12/2016 DIPHENHYDRAMINE HCL Take by mouth 0 Active (BENADRYL ORAL) daily. Reported on 11/12/2016 VITAMIN K2 ORAL Take by mouth 0 Active metroNIDAZOLE Use a thin layer 45 g 11 10/17/2014 Active (METROCREAM) 0.75 % to affected cream areas after washing Additional Information Patient not taking. Reported on 11/04/2021 minocycline (MINOCIN, DYNACIN) 50 Take 1 Cap by mouth 30 Cap 3 10/17/2015 Active mg capsuleIndications: Personal daily as needed history of other malignant (rosacea). neoplasm of skin, Rosacea Additional Information Patient not taking. Reported on 11/04/2021 apixaban (ELIQUIS) 5 mg tablet Take 5 mg by mouth 2 times 0 Active daily. metoprolol (LOPRESSOR) 50 mg Take 50 mg by mouth 2 times 0 Active tablet daily. VITAMIN B COMPLEX ORAL Take by mouth. 0 Active DILTIAZEM HCL ORAL Take 50 mg by mouth 2 times 0 Active daily. Azelaic Acid (FINACEA) 15 % Apply topically to affected 50 g 6 03/04/2021 Active gelIndications: Rosacea area 2 times daily. Use on face Active Problems Problem Noted Date History of basal cell carcinoma 11/30/2009 Overview: BCC from chin on several occasions remov ed with Mohs surgery and from left forehead as well. Surgical History Surgery Date Site/Laterality Comments SKIN BIOPSY TONSILLECTOMY MOHS SURGERY 06/20/09 Chin (3X) and Fo rehead MOHS SURGERY 09/20/1997 - 10/19/1997 right chin MOHS SURGERY 07/23/1999 - 08/20/1999 left upper lid MOHS SURGERY 10/05/06 chin MOHS SURGERY 12/24/05 left congregation MOHS SURGERY 03/22/2020 - 04/21/2020 Left BCC, left neck and left chin MOHS SURGERY 01/20/2021 - 02/19/2021 Right BCC, forehe ad MOHS SURGERY 01/20/2021 - 02/19/2021 BCC, scalp Medical History Medical History Date Comments Varicella Alopecia Rosacea Actinic keratosis Broken toe left 5th toe Raynaud's disease Basal cell carcinoma of upper eyelid [facility], left upper lid Basal cell carcinoma of left congregation 09/30/05 left congregation region Basal cell carcinoma of left lower 03/17/06 left thigh extremity Basal cell carcinoma of chin 06/30/06 chin Basal cell carcinoma of chin 05/01/09 chin Basal cell carcinoma of neck 03/2020 BCC, left u pper and lower neck, Mohs Basal cell carcinoma of neck 03/2020 BCC, neck, Mohs Basal cell carcinoma of chin 12/31/2020 BCC, left c hin, Mohs Basal cell carcinoma (BCC) of right 02/11/2021 BCC, right forehead, Mohs forehead Family History Medical History Relation Name Comments Heart Disease Father Cancer Maternal Aunt Early Maternal Grandfather Early Maternal Grandmother Mental Illness Maternal Uncle Hypertension Mother Early Paternal Grandfather Mental Illness Paternal Grandfather Early Paternal Grandmother Relation Name Status Comments Father Maternal Aunt Maternal Grandfather Maternal Grandmother Maternal Uncle Mother Paternal Aunt Paternal Grandfather Paternal Grandmother Paternal Uncle Social History Tobacco Use Types Packs/Day Years Used Date Former Smoker 1 4 Quit: 06/22/18 68 Smokeless Tobacco: Never Used Tobacco Cessation: Counseling Given: Yes Alcohol Use Standard Drinks/Week Comments No 0 (1 standard drink = 0.6 oz pure alcoho l) Sex Assigned at Date Recorded Female 05/26/2019 14:58 EST Last Filed Vital Signs Vital Sign Reading Time Taken Comments Blood Pressure 108/79 02/11/2021 1249 EDT Pulse 95 02/11/2021 1249 EDT Temperature 36.4 ??C (97.5 ??F) 04/18/2020 0747 EDT Respiratory Rate - - Oxygen Saturation - - Inhaled Oxygen Concentration - - Weight 54.4 kg (120 lb) 10/26/2015 1044 EDT Height 164.2 cm (5' 4.65) 10/26/2015 1044 EDT Body Mass Index 20.19 10/26/2015 1044 EDT Plan of Treatment Health Maintenance Due Date Last Done Comments COVID-19 Vaccine (1) 1945 Fall Risk Screening 2007 Hepatitis C Screen Completed 10/24/2021 Insurance Payer Benefit Plan / Subscriber ID Effective Phone Address T ype Group Dates MEDICARE MEDICARE A/B [id number] 2007-Pres [address] edicare GL ent [id number] [place] [address] HUMANA HUMANA [id number] 2013-Pres [phone] [address] SUPPLEMENTAL ent [phone] [place] [address] Brooke Rojo Personal/Family Self 1940 [address] (Home) [place] [address] Brooke Rojo Personal/Family Self 1940 [address]) [place] [address] Advance Directives For more information, please contact: [phone] Documents on File Type Date Recorded Patient Rebeamer Explanati on Advance Directives and Living Will Care Teams Rough And Trueing Machine Operator Relationship Specialty Start Date End Date Ml Roche NP PCP - General 11/12/[address] [place] [address] [address] [place] [address]
--- OUTSIDE RECORDS SUMMARY | 2022-02-07 00:22 | XMS_ITS | Encounter Summary ---
:1940 Author Organization [facility] Address [address] [place] [address] Care Team Providers Name Role Phone Alea Esqueda MD Primary Care Provider Reason for Visit Reason Comments Mohs Follow Up 3 MO F/U- BCC-right upper li p Encounter Details Date Type Department Care Team Description 03/13/2018 Office Visit [facility] Elliot Jacob History of Dermatology - Ethan Raza MD nonmelanoma skin [address] cancer (Primary Dx) [address] [place], [place] [phone] [place] [address] [facility] [address] [place] [address] (Wo rk) Social History Tobacco [...] making decisions? documented as of this encounter Discharge Diagnoses Diagnosis Z08 Encntr for follow-up exam after trtm t for malignant neoplasm-Z08[ICD-10-CM] Z85.828 Personal history of other malign ant neoplasm of skin-Z85.828[ICD-10-CM] documented in this encounter Discharge Disposition Disposition Code Departure Means Destination Auto Discharge documented in this encounter Progress Notes Aicha Lazar MD - 03/13/2018 1315 EDT Dermatology note S: Pt is a 77 yo F with h/o BCC on upper lip sp Mohs 12/17 followed by complex linear repair. She states she healed well and has no concerns at this time O: Area examined limited to face Well healed scar on R upper lip with no nodularity, erythema or evidence of recurrence A: History of NMSC No evidence of recurrence. P: Patient was reassured Sunscreen and sun avoidance discussed Patient should perform regular self exam Regular followup as scheduled to detect new lesions Instruction given on what to look for in terms of worrisome lesions Aicha Lazar MD Attestation statement: I saw and examined the patient with the resident/fellow. I agree with the findings and plan of care documented in the resident's/fellow's note. Elliot Jacob MD Chief of Dermatology [facility] Jesica Christina - 03/13/2018 1315 EDT Review of Systems Constitutional: Negative [...] sleep disturbance. The patient is not nervous/anxious. Jesica Quintero 03/13/2018 13:05 documented in this encounter Plan of Treatment Not on filedocumented as of this encounter Visit Diagnoses Diagnosis History of nonmelanoma skin cancer - Leticia tyson Personal history of other malignant neop lasm of skin documented in this encounter Care Teams Tapper Bit Relationship Specialty Start Date End Date Alea Esqueda MD PCP - General 05/11/14 02/22/[address] [place] [id number] documented as of this encounter
--- OUTSIDE RECORDS SUMMARY | 2022-02-07 00:22 | XMS_ITS | Encounter Summary ---
:1940 Author Organization [facility] Address [address] [place] [address] Care Team Providers Name Role Phone Alea Esqueda MD Primary Care Provider Encounter Details Date Type Department Care Team Description 02/17/2018 Hospital Encounter [facility]- Fahad Esqueda ie, [facility] [id number] [place] [id number] (Wo rk) Social History Tobacco Use Types Packs/Day Years Used Date Former Smoker 1 4 Quit: 06/22/18 68 Smokeless Tobacco: Never Used Alcohol Use Standard Drinks/Week Comments No 0 (1 standard drink = 0.6 oz pure alcoho l) Sex Assigned at Date Recorded Female 05/26/2019 14:58 EST documented as of this encounter Discharge Diagnoses Diagnosis Z12.31 Encounter for screening mammogram for malignant neoplasm of breast-Z12.31[ICD-10-CM] documented in this encounter Medications at Time of Discharge Medication Sig Dispensed Refills Start Date End Date apixaban (ELIQUIS) 5 mg Take 5 mg by mouth 0 tablet 2 times daily. ASCORBATE CALCIUM (VITAMIN Take by mouth as 0 C ORAL) needed. Reported on 11/12/2016 aspirin 81 mg EC tablet Take 81 mg by mouth 0 daily. Reported on 11/12/2016 CALCIUM CARBONATE (CALCIUM Take 1 Tab by mouth 0 600 ORAL) daily. Reported on 11/12/2016 Cholecalciferol, Vitamin Take 500 Units by 0 D3, (VITAMIN D) 1,000 unit mouth daily. Cap DIPHENHYDRAMINE HCL Take by mouth 0 (BENADRYL ORAL) daily. Reported on 11/12/2016 IBUPROFEN ORAL Take by mouth as 0 03/06/2010 needed. metoprolol (LOPRESSOR) 50 Take 50 mg by mouth 0 mg tablet 2 times daily. metroNIDAZOLE (METROCREAM) Use a thin layer to 45 g 11 10/17/2014 0.75 % cream affected areas after washing minocycline (MINOCIN, Take 1 Cap by mouth 30 Cap 3 10/16 DYNACIN) 50 mg daily as needed capsuleIndications: (rosacea). Personal history of other malignant neoplasm of skin, Rosacea MULTIVITAMINS Take 1 Tablet by 0 (MULTI-VITAMIN ORAL) mouth daily. VITAMIN B COMPLEX ORAL Take by mouth. 0 VITAMIN K2 ORAL Take by mouth 0 Azelaic Acid (FINACEA) 15 Small amount 30 g 11 10/17/19 16 10/21/2018 % gelIndications: Rosacea, nightly Personal history of other malignant neoplasm of skin documented as of this encounter Discharge Disposition Disposition Code Departure Means Destination Auto Discharge Home documented in this encounter Plan of Treatment Not on filedocumented as of this encounter Visit Diagnoses Not on filedocumented in this encounter Care Teams Tub Operator Relationship Specialty Start Date End Date Alea Esqueda MD PCP - General 05/11/14 02/22/[address] [place] [phone] documented as of this encounter
--- OUTSIDE RECORDS SUMMARY | 2022-02-07 00:22 | XMS_ITS | Encounter Summary ---
:1940 Author Organization [facility] Address [address] [place] [address] Care Team Providers Name Role Phone Alea Esqueda MD Primary Care Provider Encounter Details Date Type Department Care Team Description 10/17/2015 Hospital Encounter [facility]- Fahad Esqueda ie, [facility] [id number] [place] [phone] (Wo rk) Social History Tobacco Use Types [...] Sig Dispensed Refills Start Date End Date ASCORBATE CALCIUM (VITAMIN Take by mouth as [...] Take by mouth as 0 03/06/2010 needed. metroNIDAZOLE (METROCREAM) Use a thin layer to 45 g 11 10/17/2014 0.75 % cream affected areas after washing minocycline (MINOCIN, Take 1 Cap by mouth 30 Cap 3 10/16 DYNACIN) 50 mg daily as needed capsuleIndications: (rosacea). Personal history of other malignant neoplasm of skin, Rosacea MULTIVITAMINS Take 1 Tablet by 0 (MULTI-VITAMIN ORAL) mouth daily. VITAMIN K2 ORAL Take by mouth 0 Azelaic Acid (FINACEA) 15 Small amount 30 g 11 10/17/19 16 10/21/2018 % gelIndications: Rosacea, nightly Personal history of other malignant neoplasm of skin documented as of this encounter Discharge Disposition Disposition Code Departure Means Destination Home or Self [facility] documented in this encounter Plan of Treatment Not on filedocumented as of this encounter Visit Diagnoses Not on filedocumented in this encounter Care Teams Email Marketing Manager Relationship Specialty Start Date End Date Alea Esqueda MD PCP - General 05/11/14 02/22/[address] [place] [id number] documented as of this encounter
--- OUTSIDE RECORDS SUMMARY | 2022-02-07 00:22 | XMS_ITS | Encounter Summary ---
:1940 Author Organization [facility] Address [address] [place] [address] Care Team Providers Name Role Phone Alea Esqueda MD Primary Care Provider Reason for Visit Reason Comments Follow-up SK removal Encounter Details Date Type Department Care Team Description 10/26/2014 Office Visit [facility] Ras Bowman Seborrhe ic keratosis Dermatology - [facility] MD Rosey (Primary Dx) [address] [phone] [facility], [address] [place] [address] (Wo rk) Social History Tobacco Use Types Packs/Day Years Used Date Former Smoker 1 4 Quit: 06/22/18 68 Smokeless Tobacco: Never Used Alcohol Use Standard Drinks/Week Comments No 0 (1 standard drink = 0.6 oz pure alcoho l) Sex Assigned at Date Recorded Female 05/26/2019 14:58 EST documented as of this encounter Discharge Diagnoses Diagnosis 702.19 SEBORRHEIC KERATOSIS NOS[ICD-9-CM ] documented in this encounter Patient Instructions Patient InstructionsMihai Vaughn - 10/26/2014 9:59 EDT DERMATOLOGY ??? WOUND CARE INSTRUCTIONS If you had Liquid Nitrogen Therapy, the area may swell, form blisters and throb for 24 hours. The scabs that form should fall off within 14-21 days. It is normal to see blood in the blisters. Try to keep the blister roof intact. If the blisters open, it is okay to cleanse gently with warm water and soap, then apply plain petroleum jelly until the area has healed. It is not recommended to use triple antibiotic ointment or other ointments as they can cause allergic reactions and do not prevent infection. Cover the wound with a non-stick dressing or gauze pad and a piece of paper tape. It is importantto keep the wound covered. APPEARANCE: There may be swelling and bruising around the wound, especially near the eyes. You may also experience redness, itching or ???pulling?? sensations around the wound as it heals. Healing time depends on the size, depth are of the wound. CONTACT THE OFFICE: If the wound becomes increasingly red more than 1cm away from the wound edge, warm to touch, increased pain, drainage with a foul odor, rapid swelling of the wound and/or if you develop a fever or chills, please call our office at or . documented in this encounter Progress Notes Mihai Vaughn - 10/26/2014 0959 EDT CRYOSURGERY PROCEDURE NOTE PATIENT INFORMATION: Brooke Rojo : MRN: [id number] PROVIDER: Ras Bowman MD The indication, risks, benefits and alternatives [...] were given. SITE/LESION TYPE/DIAGNOSIS: Lesion(s) A: Location: Mid and lower back Lesion Type/Diagnosis: 15 seborrheic keratosis(es) Cosmetic removal- $200 charged to the patient. Mihai Vaughn MD 10:00 10/26/2014 Attestation Statement: I saw and examined the patient with the resident/fellow. I agree with the findings and plan of care documented in the resident's/fellow's note. I was present for the entire procedure. RAS BOWMAN MD 10/30/2014 19:44 concrete truck driver Anuja Romano - 10/26/2014 0944 EDT Review of Systems Constitutional: Negative for fever, fatigue and unexpected weight change. HENT: Negative for mouth sores. Eyes: Negative for pain. Respiratory: Negative for cough and shortness of breath. Cardiovascular: Negative for chest pain and palpitations. Gastrointestinal: Negative for nausea, vomiting, abdominal pain, diarrhea, constipation and blood instool. Genitourinary: Negative for dysuria, frequency and hematuria. Musculoskeletal: Negative for myalgias, joint swelling, arthralgias and muscle stiffness in the morning. Skin: Negative for rash. Neurological: Negative for numbness and headaches. Endo/Heme/Allergies: Does not bruise/bleed easily. Psychiatric/Behavioral: Negative for sleep disturbance. The patient is not nervous/anxious. Anuja Brown 9:44 documented in this encounter Plan of Treatment Not on filedocumented as of this encounter Visit Diagnoses Diagnosis Seborrheic keratosis - Primary Other seborrheic keratosis documented in this encounter Care Teams Budget Accountant Relationship Specialty Start Date End Date Alea Esqueda MD PCP - General 05/11/14 02/22/[address] [place] [place] [id number] documented as of this encounter
--- OUTSIDE RECORDS SUMMARY | 2022-02-07 00:22 | XMS_ITS | Encounter Summary ---
:1940 Author Organization [facility] Address [address] [place] [address] Care Team Providers Name Role Phone Alea Esqueda MD Primary Care Provider Reason for Visit Reason Comments Skin Exam Annual FBSE, h/o BCC, SK, Ro sacea Encounter Details Date Type Department Care Team Description 10/17/2015 Office Visit [facility] Lauro Johnson Personal history of other malignant neoplasm of skin (Primary Dx); Dermatology - [facility] MD Rosey [address] [phone] [facility] [address] [place] [address] (Wo rk) Social History Tobacco Use Types Packs/Day Years Used Date Former Smoker 1 4 Quit: 06/22/18 68 Smokeless Tobacco: Never Used Alcohol Use Standard Drinks/Week Comments No 0 (1 standard drink = 0.6 oz pure alcoho l) Sex Assigned at Date Recorded Female 05/26/2019 14:58 EST documented as of this encounter Discharge Diagnoses Diagnosis Z85.828 Personal history of other malign ant neoplasm of skin-Z85.828[ICD-10-CM] L71.9 Rosacea, unspecified-L71.9[ICD-10- CM] documented in this encounter Patient Instructions Patient InstructionsMihai Vaughn - 10/17/2015 13:35 EDT SUN PROTECTION AND SUN SCREENS IF YOU OR YOUR CHILD IS GETTING A SUNTAN DESPITE USING SUNSCREEN, THEY ARE STILL GETTING TOO MUCH SUN! YOU WILL NEED TO USE COVER-UP CLOTHING AND KEEP THEM OUT OF THE SUN! Most of a person's lifetime sun exposure occurs before the age of 18. Skin cancer can be prevented. Protect yourself and your child from the sun. Avoiding the sun is the best protection. Repeated and prolonged exposure to sunlight greatly increases your risk of all types of skin cancer.In addition, chronic sun exposure is the major cause of wrinkles, spotty, and unhealthy appearing skin. It???s important to have a healthy and active lifestyle and we encourage you to continue this. However, some common sense guidelines will help to keep your skin safe. ?? Avoid the hot mid-day sun (10 AM to 2 PM). Try to schedule your outdoor activities for masonry contractor or early evening. ?? Make clothing a regular part of protection. Keep your shirt on - wear long sleeves and a wide brimmed hat. ?? Be especially careful when on the water, snow, or sand, as sunlight is reflected upwards from these surfaces. ?? Don???t forget your eyes and lips! Wear sunglasses - sun exposure increases your risk for cataracts. Wear lip balm with an SPF. ?? Make sure your children practice good sun protection. Early sun damage increases their risk of developing skin cancer. ?? Wear a sunscreen. We recommend using a sunscreen with both UVA and UVB protection and a SPF of atleast 30. If you sunburn more easily or are in more intense sun, you will need a higher SPF. A ???waterproof?? sunscreen is usually good for about 2 hours, even if you???re swimming. A sunscreen should be reapplied every 2 hours and after swimming. Remember to put sunscreen on your ears and lips. There are many lip balms available with sunscreen. For more information about sun protection, skin cancer, and all skin topics, visit: www.skincancer.org and www.aad.org Sunscreens: Sunlight is made up of different wavelengths, some of which we can see as the various colors of therainbow, or ???visible?? light. UVA and UVB are invisible wavelengths, which penetrate into the skin and in excess amounts, cause injury. When the injury is severe, skin cells and become inflamed and we see sunburn. UVB causes sunburn more quickly than UVA and most sunscreens are targeted towardsthis wavelength. Tanning while wearing sunscreen may mean that primarily UVA light is reaching the skin. This is the same UVA light that is used in tanning beds and is responsible for causing wrinkles,brown spots and melanoma. For this reason, we recommend that you don???t use tanning beds and that you use sunscreen with both UVA and UVB protection. Some recommended sunscreen brands: --THERE ARE MANY GOOD SUNSCREEN BRANDS. MAKE SURE YOUR SUNSCREEN IS LABELED BROAD SPECTRUM AND HASAN SPF 30 OR HIGHER. --For sensitive skin, babies, lupus, dermatomyositis, and porphyria cutanea tarda, look for sunscreens that contain Zinc Oxide & Titanium Dioxide. These are often labeled baby or sensitive. They will apply whiter but are more gentle. Some specific sunscreen brands: ?? Blue Lizard ?? Coppertone ?? Neutrogena ?? Bull Frog ?? Banana Boat ?? Aveeno ?? Tizo ?? Gurwinder CHIU Recommended resources for sun protective clothing and hats: ?? http://www.Constant Contact.[facility] ?? http://www.Instreet Network.[facility] ?? http://www.Appside.com documented in this encounter Ordered Prescriptions Prescription Sig Dispensed Refills Start Date End Date minocycline (MINOCIN, Take 1 Cap by mouth 30 Cap 3 10/16 DYNACIN) 50 mg daily as needed capsuleIndications: (rosacea). Personal history of other malignant neoplasm of skin, Rosacea Azelaic Acid (FINACEA) 15 Small amount nightly 30 g 11 10/17/2015 10/21/2018 % gelIndications: Rosacea, Personal history of other malignant neoplasm of skin documented in this encounter Progress Notes Mihai Vaughn - 10/17/2015 3440 EDT Dermatology Outpatient Visit Note Chief Complaint Patient presents with ??? Skin Exam Annual FBSE, h/o BCC, SK, Rosacea Dermatologic History: 1. History of multiple basal cell carcinomas including barragan , forehead, thigh ,baptist and eyelid 2. Rosacea 3. Seborrheic keratoses Last Dermatology office visit: September 2014 SUBJECTIVE Ms. Rojo is a 75 y.o. female who presents for follow up for a skin check. She had shingles on the face last summer but no other interim health changes. She is feeling well overall. She had afew spots on the face (small bumps) that she would like checked. Her rosacea is well controlled withonly a few flares a few times a month or less. She notes redness mostly which responds well to azelaic acid and PRN minocycline, which she would like refills of today. For full Medical, Surgical, Family, and Social [...] cholecalciferol (vitamin d3), diphenhydramine hcl, ibuprofen, metronidazole, multivitamin, and vitamin k2. She is allergic to meclizine. OBJECTIVE VS: There were no vitals taken for this visit. Ms. Rojo is well developed, well-nourished, in no acute distress and cooperative female sitting on the examination table with a normal affect. She is alert and oriented to person, place and time. She has Bucio type II skin. Cutaneous full body examination including the hair, scalp, face, eyelids, lips, neck, chest, back, abdomen, all four extremities, hands, feet, digits and nails was performed.The examination was normal with the addition of the following comments: There were no lesions suspicious for malignancy. -3 milia on the face (nose, forehead, and upper cutaneous lip) -No active rosacea today ASSESSMENT 1. Rosacea, well controlled 2. History of numerous basal cell carcinomas 3. MILLIA, FACE PLAN 1. Refills of azelaic acid and minocycline given today 2. RTC 1 year, sooner if anything worrisome arises 3. BENIGN NATURE OF MILIUM DISCUSSED She will f/u as planned or in the interim should problems arise. Med Orders Placed This Visit and Additions to the Medication List Medications ??? Azelaic Acid (FINACEA) 15 % gel Sig: Small amount nightly Dispense: 30 g Refill: 11 ??? DISCONTD: minocycline (MINOCIN, DYNACIN) 50 mg capsule Sig: Take 50 mg by mouth 2 times daily. ??? minocycline (MINOCIN, DYNACIN) 50 mg capsule Sig: Take 1 Cap by mouth daily as needed (rosacea). Dispense: 30 Cap Refill: 3 Mihai Vaughn MD 10/17/2015 13:34 Attestation Statement: I saw and examined the patient with the resident/fellow. I agree with the findings and plan of care documented in the resident's/fellow's note. isa Oconnor - 10/17/2015 1330 EDT Review of Systems Constitutional: Negative for [...] sleep disturbance. The patient is not nervous/anxious. Lisa Whitfield 10/17/2015 13:30 documented in this encounter Plan of Treatment Not on filedocumented as of this encounter Visit Diagnoses Diagnosis Personal history of other malignant neop lasm of skin - Primary Rosacea documented in this encounter Discontinued Medications Medication Sig Discontinue Reason Start Date End Date Azelaic Acid (FINACEA) Small amount nightly Reorder 10/17/2014 10/17/2015 15 % gelIndications: Rosacea minocycline (MINOCIN, Take 50 mg by mouth Reorder 10/17/2015 DYNACIN) 50 mg capsule 2 times daily. documented as of this encounter Historical Medications This list may reflect changes made after this encounter. Medication Sig Dispensed Refills Start Date End Date minocycline (MINOCIN, Take 50 mg by mouth 0 10/17/2015 DYNACIN) 50 mg capsule 2 times daily. added in this encounter Care Teams Aviation Consultant Relationship Specialty Start Date End Date Alea Esqueda MD PCP - General 05/11/14 02/22/[address] [place] [id number] documented as of this encounter
--- OUTSIDE RECORDS SUMMARY | 2022-02-07 00:23 | XMS_ITS | Encounter Summary ---
:1940 Author Organization [facility] Address [address] [place] [address] Care Team Providers Name Role Phone Sylvester Turcios MD Primary Care Provider [phone] Reason for Visit Reason Comments Laser Treatment Pulsed dye laser Scar Encounter Details Date Type Department Care Team Description 03/15/2010 Office Visit [facility] Elliot Jacob History of basal Dermatology - [facility] MD Ry cell carcinoma [address] (Primary Dx) [address] [place] [address] [place], [address] [place] [address] (Wo rk) Social History Tobacco Use Types Packs/Day Years Used Date Former Smoker Alcohol Use Standard Drinks/Week Comments No 0 (1 standard drink = 0.6 oz pure alcoho l) Sex Assigned at Date Recorded Female 05/26/2019 14:58 EST documented as of this encounter Progress Notes Rema Posadas - 03/15/2010 1029 EDT A complete 12 point review of systems was obtained and reviewed. All systems are negative: Rema Posadas 10:29 03/15/2010 Elliot Jacob MD Chief of Dermatology [facility] S: Here for followup on BCC scar. We were going to consider laser, but it is totally better. O: Scar is flat on chin, with no recurrence. There are three tiny milia. A: Well-healed without recurrence. P: Annual followup with Dr. Johnson (already scheduled) Elliot Jacob MD Chief of Dermatology [facility] documented in this encounter Plan of Treatment Not on filedocumented as of this encounter Visit Diagnoses Diagnosis History of basal cell carcinoma - Primar y Personal history of other malignant neop lasm of skin documented in this encounter Discontinued Medications Medication Sig Discontinue Reason Start Date End Date LICORICE ROOT EXTRACT 1 Tab by Error 2009 (LICORICE MISC) Misc.(Non-Drug; Combo Route) route every 14 days. documented as of this encounter Care Teams Biztalk Administrator Relationship Specialty Start Date End Date Sylvester Turcios MD PCP - General 04/27/09 05/10/[address] [place] [id number] documented as of this encounter
--- OUTSIDE RECORDS SUMMARY | 2022-02-07 00:23 | XMS_ITS | Encounter Summary ---
:[address] [facility] Address [address] [place] [address] Care Team Providers Name Role Phone Unavailable Primary Care Provider Unavailable Encounter Details Date Type Department Care Team Description 03/17/2006 Hospital Encounter [facility] - Deanna Back MD [address],[facility] [address] [facility] [address] [place] [address] [place], [place] [phone] (Wo rk) Social History Tobacco Use Types Packs/Day Years Used Date Never Assessed Sex Assigned at Date Recorded Female 05/26/2019 14:58 EST documented as of this encounter Discharge Disposition Disposition Code Departure Means Destination Auto Discharge documented in this encounter Plan of Treatment Not on filedocumented as of this encounter Visit Diagnoses Not on filedocumented in this encounter
--- OUTSIDE RECORDS SUMMARY | 2022-02-07 00:23 | XMS_ITS | Encounter Summary ---
:1940 Author Organization [facility] Address [address] [place] [address] Care Team Providers Name Role Phone Sylvester Turcios MD Primary Care Provider [phone] Encounter Details Date Type Department Care Team Description 06/01/2007 Before [facility] - Eileen Valverde Converted Visit [facility] conversion [address] [facility] ([facility]) [address] [place] [address] [place] [address] [phone] Social History Tobacco Use Types Packs/Day Years Used Date Never Assessed Sex Assigned at Date Recorded Female 05/26/2019 14:58 EST documented as of this encounter Progress Notes Cristina Valverde - 05/02/2009 1315 EST DIVISION OF DERMATOLOGY PROGRESS/FOLLOWUP NOTE - 06/01/2007 CHIEF COMPLAINT History of numerous basal cell carcinomas. SUBJECTIVE This is a follow-up visit for Mrs. Rojo, who was last seen in the Dermatology Clinic on 06/29/2006.At that time, she had a lesion on the chin biopsiedwhich revealed a basal cell carcinoma. Since thattime in September she has had a Mohs micrographic surgery by Dr. Jacob. She states she is very pleasedwith how the spot has healed. She does come in today with a list of several lesions that she is concerned about. She has noticed gritty spots above the left and right lip as well as above the left eyebrow that had been present for several months. In addition, she has noticed a red spot on her right thigh thatshe would like examined. For her rosacea, she has been using Finacea as well as minocycline 50 mg daily and is pleased with this regimen. She is requesting refills today. Patient has had no interval health status change. No constitutional symptoms today or any other complaints referable to the skin. OBJECTIVE On examination, the patient is a well-appearing 66-year-old female in no acute distress. The scalp, face, neck, back, chest, abdomen, intertriginous areas and extremities were examined. The examinationof the face revealed above the left eyebrow as well as left and right lip that she has approximately2 mm pink, gritty macules. On the left methodist she has a well-healedlinear surgical excision site from a previous Mohs micrographic surgery with no evidence of recurrence. In addition, on the right chinshe has well-healed surgical site from previous Mohs surgery with no evidence of recurrence. Examination of the torso reveals numerous brown, waxy, tdayb-on-cktrdppgu papules as well as numerous 2 to 4mm shankar red macules and papules. On the right upper thigh she has a 3 mm shankar red papule. Examination reveals a well-healed surgical site of previous basal cell occlusion with no evidence of recurrence. The remainder of the skin examination is otherwise unremarkable. ASSESSMENT 1. History of basal cell carcinoma x4, right chin and left methodist, left upper thighno evidence of recurrence. 2. Rosacea, doing well. 3. Actinic keratoses. PLAN 1.discussed and questions answered. We discussed with the patient that there appears to be no evidence of recurrence of previous basal cell carcinomas. 2. We did discuss with her that she has several precancerous lesions called actinic keratoses above the lip and on the forehead above the left eyebrow. We discussed with her treatment options includingliquid nitrogen as well as topical 5-FU cream. We discussed with her that often topical 5-FU cream works better along the lip and is less likely to leave hypopigmentation. The patient states she has used Carac in the past and would prefer this treatment. A prescription for Carac 30 gram tube, to be applied to the affected areas daily, was provided. The expected reaction and healingcourse were discussed in detail. Photographs showing the degree of redness and crusting were shown. Potential adverse affects including, but not limited to, bleeding, erosion and prolonged erythema were also discussed. Detailed written information given as well. Patient was instructed to call the office with any questions or concerns. 3. For her rosacea, refills for minocycline 50 mg to take 1 p.o. daily was dispensed as well Finacea, to be applied to the face daily. 4. The importance of sunscreen use, sun avoidance and self-examination was discussed. 5. Plan to follow up in 6 months, or sooner if any other issues or concerns arise. saw and examined the patient with the resident/fellow. I agree with the findings and plan of care documented in the resident's/fellow's note. Signed by Lauro Johnson MD 06/03/2007 09:21 Reviewed by Cristina Valverde MD 06/02/2007 16:13 Cristina Valverde MD Lauro Johnson MD - Cristina Valverde MD - jason Job ID: [id number] Doc ID: [id number] cc: - jason Job ID: [id number] Doc ID: [id number] cc: documented in this encounter Plan of Treatment Not on filedocumented as of this encounter Visit Diagnoses Not on filedocumented in this encounter Care Teams Tack Driller Relationship Specialty Start Date End Date Sylvester Turcios MD PCP - General 04/27/09 05/10/[address] [place] [id number] documented as of this encounter
--- OUTSIDE RECORDS SUMMARY | 2022-02-07 00:23 | XMS_ITS | Encounter Summary ---
:1940 Author Organization [facility] Address [address] [place] [address] Care Team Providers Name Role Phone Sylvester Turcios MD Primary Care Provider [phone] Encounter Details Date Type Department Care Team Description 06/29/2006 Before [facility] - Lizzette Solares Converted Visit Maple conversion [facility] ([facility]) [address] [facility] [address] [place] [address] ,[address] [place] [address] (Wo rk) Social History Tobacco Use Types Packs/Day Years Used Date Never Assessed Sex Assigned at Date Recorded Female 05/26/2019 14:58 EST documented as of this encounter Progress Notes Blanca Solares - 07/08/20092031 EST DIVISION OF DERMATOLOGY PROGRESS/FOLLOWUP NOTE - 06/29/2006 Brooke is seen today in followup for reevaluation of a papule on the right aspect of the chin. At her last visit, we thought that it might be an inflammatory papule so we decided to treat. She used both oral antibiotics (tetracycline) for a couple of months as well as clindamycin lotion topically. Thespot persists. She also has another little spot right next to it and she wonders what that is. Again, she has a history of basal cell carcinomas X 2, left thigh and right chin. This was lateral to the papule in question that we are looking at today. Patient has had no interval health status change. No constitutional symptoms today or any other complaints referable to the skin. She is headed to [place] for several months andshe will be leaving in afew weeks. OBJECTIVE: On physical exam she appears well. On the right aspect of the chin, at the labiomental fold is a well-healed scar consistent with previous Mohs surgery. Medial to this by at least a centimeter is a 3 mm diameter pink, slightly rough, thin papule. There is a telangiectasia within it. Medial to that papule is a 1 mm diameter white cyst. She has a few open comedos on the chin as well. On the left thigh is a well-healed linear excision site without evidence of recurrence. No induration. ASSESSMENT: 1. Papule, persistent, not yet diagnosed. Should rule out basal cell carcinoma. 2. History of BCC X 2 without evidence of recurrences. PLAN: 1. After her consent, biopsy by shave technique of the papule on the right aspect of the chin performed. Please see consent form and procedure note. Will followup as appropriate per biopsy results as needed. 2. Recommended continued use of Finacea on the nose and also advised to apply this to the chin as well. 3. Follow up in 1 year for a total skin check as well as per biopsy results. Signed by Carlos Napier MD 07/03/2006 12:03 Reviewed by Lizzette Solares PA-C 07/01/2006 09:33 Nael Bautista PA-CPaul Krusinski, MD Dictated by: Lizzette Solares PA-C Carlos Napier MD - Lizzette Solares PA-C A - dd Job ID: [id number] Document ID: [id number] cc: documented in this encounter Plan of Treatment Not on filedocumented as of this encounter Visit Diagnoses Not on filedocumented in this encounter Care Teams Director Of Kids Relationship Specialty Start Date End Date Sylvester Turcios MD PCP - General 04/27/09 05/10/[address] [place] [id number] documented as of this encounter
--- OUTSIDE RECORDS SUMMARY | 2022-02-07 00:23 | XMS_ITS | Encounter Summary ---
:1940 Author Organization [facility] Address [address] [place] [address] Care Team Providers Name Role Phone Sylvester Turcios MD Primary Care Provider [phone] Alea Esqueda MD Primary Care Provider Unknown, Provider Primary Care Provider Ml Roche NP Primary Care Provider Encounter Details Date Type Department Care Team Description 10/05/2006 [facility] [address] [place], [place] [id number] [place] [address] [place], [address] [place] [address] (Wo rk) Social History Tobacco [...] on filedocumented in this encounter Care Teams Clinical Statistical Programmer Relationship Specialty Start Date End Date Sylvester Turcios MD PCP - General 04/27/09 05/10/[address] [place] [phone] Alea Esqueda MD PCP - General 05/11/14 02/22/20 [address] [place], [place] [phone] Ervin, MD Ya PCP - General 11/07/20 11/11/20 Ml Roche NP PCP - General 11/12/[address] [place] [phone] documented as of this encounter
--- OUTSIDE RECORDS SUMMARY | 2022-02-07 00:23 | XMS_ITS | Encounter Summary ---
:1940 Author Organization [facility] Address [address] [place] [address] Care Team Providers Name Role Phone Sylvester Turcios MD Primary Care Provider [phone] Encounter Details Date Type Department Care Team Description 12/14/2012 Results Only [facility] KAYLA Lund MD [phone] [place] [address] (Wo rk) Social History Tobacco Use Types Packs/Day Years Used Date Former Smoker 1 4 Quit: 06/22/18 66 Alcohol Use Standard Drinks/Week Comments No 0 (1 standard drink = 0.6 oz pure alcoho l) Sex Assigned at Date Recorded Female 05/26/2019 14:58 EST documented as of this encounter Plan of Treatment Not on filedocumented as of this encounter Procedures Procedure Name Priority Date/Time Associated Diagnosis Comme nts NANNETTE MCKINNON DIAG UNI 01/03/2013 13:04 Results for this DIGITAL EDT procedure are i n the results section. documented in this encounter Results NANNETTE MCKINNON DIAG UNI DIGITAL (01/03/2013 13:04 EDT) Anatomical Region Laterality Modality Other Specimen Narrative [facility] - 01/03/2013 14:01 EDT NANNETTE LORENZO UNI DIGITAL, RAD US JACOB BREAST UNILATERAL - ONE BREAST (25 MIN DURATION) ??01/03/2013 1:04 PM Signs and Symptoms/Comments: ??Firm, dis crete, mobile mass in upper outer quadrant on right breast. Comparison: Prior mammography from 2011 through 2002. Right breast findings: Digital diagnosti c views of the right breast were obtained in standard projections wi th a triangular-shaped marker over the site of palpable concern at 8:0 0. The standard views are supplemented with spot compression magni fication views in XCCL and true lateral projections. The breast tis devin is heterogeneously dense, limiting interpretation. There is no dom inant mass or suspicious calcification seen on the mammogram. No significant interval mammographic change is noted. Sonography of the entire right breast wa s performed and is negative. Particular attention was paid to the pal pable area at 8:00, 7 cm from the nipple. Only dense echogenic fibrous tissue is noted in this region. Impression right breast: Negative mammog chitra and ultrasound in the region of clinical concern. BI-RADS katherin gory 1. The patient was advised to followup with her physician r egarding the palpable lump. If there is a persistent clinically conc erning palpable lump, referral to a breast surgeon should be a ccomplished. Annual screening mammography is recommended with next kelly ateral mammogram to be obtained in April 2013. Results and recommendations were discuss ed with the patient by the radiologist at the time of the exam. Thi s examination was interpreted with the aid of computer-assisted detect ion (CAD) technology. Overall assessment: BI-RADS Category Ass essment 1: Negative. These results will be communicated to yo ur patient via a lay letter from Radiology. If any additional imagin g is needed we will contact your patient directly. Procedure Note 01/03/2013 NANNETTE LORENZO UNI DIGITAL, RAD US JACOB ROBSON AST UNILATERAL - ONE BREAST (25 MIN DURATION) 01/03/2013 1:04 PM Signs and Symptoms/Comments: Firm, discr ete, mobile mass in upper outer quadrant on right breast. Comparison: Prior mammography from 2011 through 2002. Right breast findings: Digital diagnosti c views of the right breast were obtained in standard projections wi th a triangular-shaped marker over the site of palpable concern at 8:0 0. The standard views are supplemented with spot compression magni fication views in XCCL and true lateral projections. The breast tis devin is heterogeneously dense, limiting interpretation. There is no dom inant mass or suspicious calcification seen on the mammogram. No significant interval mammographic change is noted. Sonography of the entire right breast wa s performed and is negative. Particular attention was paid to the pal pable area at 8:00, 7 cm from the nipple. Only dense echogenic fibrous tissue is noted in this region. Impression right breast: Negative mammog chitra and ultrasound in the region of clinical concern. BI-RADS katherin gory 1. The patient was advised to followup with her physician r egarding the palpable lump. If there is a persistent clinically conc erning palpable lump, referral to a breast surgeon should be a ccomplished. Annual screening mammography is recommended with next kelly ateral mammogram to be obtained in April 2013. Results and recommendations were discuss ed with the patient by the radiologist at the time of the exam. Thi s examination was interpreted with the aid of computer-assisted detect ion (CAD) technology. Overall assessment: BI-RADS Category Ass essment 1: Negative. These results will be communicated to yo ur patient via a lay letter from Radiology. If any additional imagin g is needed we will contact your patient directly. Performing Organization Address City/State/ZIP Code Phon e Number [facility] documented in this encounter Visit Diagnoses Not on filedocumented in this encounter Care Teams Senior Environmental Technician Relationship Specialty Start Date End Date Sylvester Turcios MD PCP - General 04/27/09 05/10/[address] [place] [id number] documented as of this encounter
--- OUTSIDE RECORDS SUMMARY | 2022-02-07 00:23 | XMS_ITS | Encounter Summary ---
:1940 Author Organization [facility] Address [address] [place] [address] Care Team Providers Name Role Phone Sylvester Turcios MD Primary Care Provider [phone] Encounter Details Date Type Department Care Team Description 05/02/[address] [facility] Sylvester Turcios, [address] [place] [phone] (Wo rk) Social History Tobacco Use Types Packs/Day Years Used Date Former Smoker Alcohol Use Standard Drinks/Week Comments No 0 (1 standard drink = 0.6 oz pure alcoho l) Sex Assigned at Date Recorded Female 05/26/2019 14:58 EST documented as of this encounter Plan of Treatment Not on filedocumented as of this encounter Procedures Procedure Name Priority Date/Time Associated Diagnosis Comme nts MA MAMMO SCREENING 05/02/2010 10:25 Resul ts for this DIGITAL EST procedure are i n the results section. documented in this encounter Results MA MAMMO SCREENING DIGITAL (05/02/2010 10:25 EST) Anatomical Region Laterality Modality Other Specimen Narrative [facility] RAD[facility] - 05/06/2010 13:28 EST Comparison is made to films from 009 (bilateral) and films from 03/23/2008 (bilateral) and films fr om 03/18/2007 (bilateral) and films from 03/17/2006 (bilateral) and fi lms from 09/16/2005 (left) and films from 01/10/2005 (bilateral) an d films from 01/10/2004 and films from 12/08/2002. Bilateral Breast Findings: (CAD used to interpret routine digital): There are scattered fibroglandular densi ties. No significant masses, calcifications or other abnormalities ar e seen. IMPRESSION: BILATERAL BREASTS - CATEGORY 1, NEGATIVE Negative, no evidence of malignancy. Nor mal interval follow-up is recommended in 12 months. OVERALL ASSESSMENT - NEGATIVE END OF IMPRESSION The patient will be notified of her/his breast imaging results via a lay letter from Radiology. ??Radiology w ill contact the patient directly regarding any findings which re quire additional imaging (Category 0) at this time. Procedure Note 05/06/2010 Comparison is made to films from 009 (bilateral) and films from 03/23/2008 (bilateral) and films fr om 03/18/2007 (bilateral) and films from 03/17/2006 (bilateral) and fi lms from 09/16/2005 (left) and films from 01/10/2005 (bilateral) an d films from 01/10/2004 and films from 12/08/2002. Bilateral Breast Findings: (CAD used to interpret routine digital): There are scattered fibroglandular densi ties. No significant masses, calcifications or other abnormalities ar e seen. IMPRESSION: BILATERAL BREASTS - CATEGORY 1, NEGATIVE Negative, no evidence of malignancy. Nor mal interval follow-up is recommended in 12 months. OVERALL ASSESSMENT - NEGATIVE END OF IMPRESSION The patient will be notified of her/his breast imaging results via a lay letter from Radiology. Radiology kimberli l contact the patient directly regarding any findings which re quire additional imaging (Category 0) at this time. Performing Organization Address City/State/ZIP Code Phon e Number [facility] RADIOLOGY [facility] documented in this encounter Visit Diagnoses Not on filedocumented in this encounter Care Teams Slip Operator Relationship Specialty Start Date End Date Sylvester Turcios MD PCP - General 04/27/09 05/10/[address] [place] [id number] documented as of this encounter
--- OUTSIDE RECORDS SUMMARY | 2022-02-07 00:23 | XMS_ITS | Encounter Summary ---
:1940 Author Organization [facility] Address [address] [place] [address] Care Team Providers Name Role Phone Sylvester Turcios MD Primary Care Provider [phone] Reason for Visit Reason Comments Skin Lesion Changing mole on stomach Encounter Details Date Type Department Care Team Description 10/09/2011 Office Visit [facility] Lauro Bowman History of basal cell carcinoma (Primary Dx); Dermatology - Ethan Currie MD Tick bite, infected; [address] Tick bite [address] [place], [place] [id number] [place] [address] [place] [place] [address] (Wo rk) Social History Tobacco Use Types Packs/Day Years Used Date Former Smoker Alcohol Use Standard Drinks/Week Comments No 0 (1 standard drink = 0.6 oz pure alcoho l) Sex Assigned at Date Recorded Female 05/26/2019 14:58 EST documented as of this encounter Patient Instructions Patient InstructionsAngela Link MD - 10/09/2011 8:54 EDT DERMATOLOGY ??? WOUND CARE INSTRUCTIONS The DRESSING/BANDAID should remain in place for 24 hours. If the dressing comes loose before then, re-tape it carefully or change the bandage. You may shower after 24 hours; remove the bandage and replace it after the shower. Do not let the forceful stream of the shower hit your wound directly. If youbathe in a tub, the bath should be brief. DISCOMFORT: Postoperative pain is usually minimal. Tylenol 325 mg as directed usually reliefs any pain you may have. Do not take Ibuprofen (Motrin, Advil), Naprosyn (Aleve), and Aspirin or aspirin- containing products as they increase the chance of bleeding for 5 days after your surgery , unless approved by your provider. BLEEDING: Attention has been given to your wound to prevent bleeding. You may notice a small amount of blood on the edges of the dressing the first day and this is NORMAL. Keep your head elevated for 48 hours if the surgery was on the face or scalp. If the bleeding seems persistent and soils the dressing, apply firm, steady pressure over the dressing with gauze or a wash cloth for fifteen minutes. This is usually adequate treatment. If bleeding persists, call our office at or go to the nearest Walk in Clinic or Emergency Room. ACTIVITY: Relax and limit your physical activity for the first 48 hours after the procedure. Physical activity should also be limited if the excision included the shoulder, upper arm, and/or legs for the next 7-10 days. WOUND CARE: ?? Wash hands with soap and water before changing the dressing. ?? Change the dressing daily and when it becomes wet The suture line should be cleansed daily with tap water. You may gently loosen any crusts with a cotton swab. Pat dry. The first day the wound may be tender and may bleed slightly or ooze a small amount clear fluid. For stubborn crusting, place a wet cloth over the wound for five minutes to soak and loosen crusts. Apply a thin layer of Vaseline over the wound. It is not recommended to use triple antibiotic ointment or other ointments as they can cause allergic reactions and do not prevent infection. Cover the wound with a Telfa (non-stick) dressing or gauze pad and a piece of paper tape. It is important to keepthe wound covered. If you have sutures; the provider will inform you as to when the sutures need removed. Generally this is between 7-14 days depending on the area of the wound. If you had Liquid Nitrogen Therapy, the area may swell, form blisters and throb for 24 hours. The scabs that form should fall off within 14-21 days. It is normal to see blood in the blisters. If the blisters open, apply Vaseline until the area has healed. APPEARANCE: There may be swelling and bruising around the wound, especially near the eyes. For your comfort, you may apply warm, moist soaks to the bruises a few times a day, starting the third day after the procedure. You may also experience itching or ???pulling?? sensations around the wound as it heals. Healing time depends on the size, depth are of the wound. If you have concerns please call ouroffice. If the procedure requires sutures, the suture line will be dark pink at first and the edges of the wound will be reddened. This will lighten up day by day and will be less tender. CONTACT THE OFFICE: ?? If the wound becomes increasingly red, warm to touch, increased pain, drainage with a foul odor, rapid swelling of the wound and/or if you develop a fever or chills, please call our office immediately or . documented in this encounter Ordered Prescriptions Prescription Sig Dispensed Refills Start Date End Date doxycycline Take 1 Cap by mouth 2 42 Each 0 10/09/2011 (VIBRAMYCIN) 100 mg times daily. Take with capsule food, may cause photosensitivity and stomach upset. documented in this encounter Progress Notes Angela Link MD - 10/09/2011 0816 EDT Images from the original note were not included. A complete 12 point review of systems was obtained and reviewed. All systems are negative except for: rash, itching, new/changing skin lesions, tinnitus. Shantelle Montano 10/09/2011 8:16 Angela Link MD Patient Education Topic: Wound Care Method: Handout and Verbal Taught to: Patient Barriers: None Outcomes: Independent and verbalized understanding Signature: Shantelle Montano 10/09/2011 9:23 CATZAngela desai MD - 10/09/2011 0812 EDT Dermatology Outpatient Visit Note SUBJECTIVE Chief Complaint Patient presents with ??? Skin Lesion Changing mole on stomach 1. History of multiple basal cell carcinomas (chin x3, left thigh and left lid) History of Present Illness: Brooke Rojo is a 71 y.o. female with a history of basal cell carcinoma who presents to clinic today for evaluation of a changing mole. Last seen in clinic 03/06/2010, and since then she notes a changing mole on her abdomen. She is unsure if the lesion is a mole or keratoss, and it has been p resent for years. She notes that two week ago redness appeared around the lesion. The redness was the shape of a ring. She denies any fevers, chills, myalgias, arthralgias, or headache. She does not spend a lot of time outdoors. She has no pets. She was recently visiting family in [place]. Review of Systems: Pertinent positives as noted above in progress notes section and all others are negative. Pt's past medical, family, and social history have been reviewed as above. Meds: Pt has a current medication list which includes the following prescription(s): ibuprofen, minocycline, azelaic acid, multivitamin, calcium carbonate, cholecalciferol (vitamin d3), ibuprofen, and biotin. OBJECTIVE VS: There were no vitals taken for this visit. Physical Exam: This is a pleasant, alert and oriented, well-nourished, well-groomed female in no acute distress. Focused cutaneous examination was done of the scalp, eyelids, nose, cheeks, forehead, external ears, lips and chin, neck, back, chest, abdomen, axillae, buttocks, and extremities. On the right mid abdomen there is a 6 mm tick with a white spot on the body near the head. There were no lesions worrisome for malignancy on this exam. The remainder of the exam of other sites examined is normal. ASSESSMENT 1. Tick bite with tick present today - concern for Lyme disease given history. PLAN 1. Patient education given on the above assessments. 2. Recommended removal of the tick and tick parts via punch removal. The patient agrees with this plan. Will send the tick to microbiology for identification. Advised the patient on the risks of biopsy, including pain, infection, bleeding and scar formation. 3. We also recommended prophylactic treatment for Lyme disease with doxycycline. She was given a prescription for doxycycline 100 mg tablets, one tablet BID for three weeks (#42 tablets with 0 refills). 4. Plan for follow-up in one year, sooner as needed. Angela Link MD 10/09/2011 8:12 PUNCH Removal PROCEDURE NOTE PATIENT INFORMATION: Brooke Rojo [id number] 1940 DATE OF PROCEDURE: 10/09/2011 SURGEON: Angela Link MD PROCEDURE NOTE The indication, risks, benefits and alternatives to this procedure were discussed in detail in with the patient and all questions were answered. Informed consent was obtained in writing. Specimen A Procedure: Punch Removal Site: right mid abdomen Anesthesia: 1% lidocaine with epinephrine 1:100,000 buffered with 8.4% NaHCO3 Prep: Alcohol The lesion was prepped and anesthetized with local anesthesia. The specimen was removed with a 4.0 mm punch trephine. Hemostasis was achieved with pressure. The wound was closed with 5.0 Vicryl Rapide (coated polyglactin 910) suture. A sterile dressing was applied over petrolatum ointment. Verbal and written wound care instructions were given. The specimen was submitted to microbiology. Angela Link MD 10/09/2011 9:47 Attestation Statement: I saw and examined the patient with the resident/fellow. I agree with the findings and plan of care documented in the resident's/fellow's note. I was present for the entire procedure. LAURO BOWMAN MD 10/09/2011 14:30 roll reclaimer documented in this encounter Miscellaneous Notes Scanned Note-Null - TAP DANCER, SCAN 2 - 10/16/2011 0751 EDT documented in this encounter Plan of Treatment Not on filedocumented as of this encounter Procedures Procedure Name Priority Date/Time Associated Comments Diagnosis ARTHROPOD Routine 10/09/2011 10:26 Tick bite Results for this IDENTIFICATION EDT procedure are in the results section. documented in this encounter Results ARTHROPOD IDENTIFICATION (10/09/2011 10:26 EDT) Specimen Description Other [facility] Result AM[facility] ([facility] tick), adult female Specimen is unengorged, mouth parts intact. Report Status 10/09/2011 Final [facility] Specimen Other (qualifier value) Performing Organization Address City/State/ZIP Code Phon e Number [facility] [address] [place] [address] SERVICES [facility] [address] [place] [address] documented in this encounter Visit Diagnoses Diagnosis History of basal cell carcinoma - Primar y Personal history of other malignant neop lasm of skin Tick bite, infected Other, multiple, and unspecified sites, insect bite, nonvenomous, infected Tick bite Other, multiple, and unspecified sites, insect bite, nonvenomous, without mention of infection documented in this encounter Historical Medications This list may reflect changes made after this encounter. Medication Sig Dispensed Refills Start Date End Date ASCORBATE CALCIUM Take by mouth as 0 (VITAMIN C ORAL) needed. Reported on 11/12/2016 MAGNESIUM ORAL Take by mouth daily. 0 08/24/2013 added in this encounter Care Teams Telegrapher Agent Relationship Specialty Start Date End Date Sylvester Turcios MD PCP - General 04/27/09 05/10/[address] [place] [phone] documented as of this encounter
--- OUTSIDE RECORDS SUMMARY | 2022-02-07 00:23 | XMS_ITS | Encounter Summary ---
:1940 Author Organization [facility] Address [address] [place] [address] Care Team Providers Name Role Phone Sylvester Turcios MD Primary Care Provider [phone] Encounter Details Date Type Department Care Team Description 05/17/2013 Orders Only [facility] Sylvester Turcios [facility] MD [address],[facility] [place], [place] [address] (Wo rk) Social History Tobacco Use Types [...] on filedocumented in this encounter Care Teams Furniture Duster Relationship Specialty Start Date End Date Sylvester Turcios MD PCP - General 04/27/09 05/10/[address] [place] [address],[facility] [address] [place] [address] documented as of this encounter
--- OUTSIDE RECORDS SUMMARY | 2022-02-07 00:23 | XMS_ITS | Encounter Summary ---
:1940 Author Organization [facility] Address [address] [place] [address] Care Team Providers Name Role Phone Sylvester Turcios MD Primary Care Provider [phone] Encounter Details Date Type Department Care Team Description 03/05/2010 Abstract [facility] Lauro Johnson MD Dermatology - [facility] amp [address] [address] [address], [place] [address] (Wo rk) Social History [...] on filedocumented in this encounter Care Teams Model Set Artist Relationship Specialty Start Date End Date Sylvester Turcios MD PCP - General 04/27/09 05/10/[address] [place] [phone] documented as of this encounter
--- OUTSIDE RECORDS SUMMARY | 2022-02-07 00:23 | XMS_ITS | Encounter Summary ---
:[address] [facility] Address [address] [place] [address] Care Team Providers Name Role Phone Sylvester Turcios MD Primary Care Provider [phone] Reason for Visit Reason Onset Date Comments New/Evolving Symptoms 09/01/2013 [facility] bone biopsy site Encounter Details Date Type Department Care Team Description 09/01/2013 Telephone [facility] Lauro Bowman New/Evol ving Symptoms Dermatology - [facility] MD Rosey ([facility] bone biopsy [place] [address] [facility] site) [address] [place] [address] [place], [place] [address] (Wo rk) Social History Tobacco Use Types Packs/Day Years Used Date Former Smoker 1 4 Quit: 06/22/18 68 Smokeless Tobacco: Never Used Alcohol Use Standard Drinks/Week Comments No 0 (1 standard drink = 0.6 oz pure alcoho l) Sex Assigned at Date Recorded Female 05/26/2019 14:58 EST documented as of this encounter Miscellaneous Notes Telephone Encounter - Lauro Bowman MD - 09/07/2013 1120 EDT Agree with you If patient worried about wound she can always have it checked For now will observe clinically LAURO BOWMAN MD 09/07/2013 11:21 pushcart peddler elephone Encounter - Ngozi Lubin - 09/02/2013 1002 EDT Spoke with patient regarding her wound healing. The wound sounds like it is healing as expected. Shave biopsies can take weeks-months to heal. As for the rash, she can use some over the counter hydrocortisone. She should also change bandage materials. I have mailed her some non-stick Telfa and paper tape. She should continue the Vaseline and bandages as this will help the wound heal faster. Patient inquired about her biopsy results. Biopsy came back as a basal cell carcinoma, however it appears to be out with the biopsy. Dr. Bowman will most likely recheck it at her next skin exam. Patient voiced understanding. No barriers to learning identified. Ngozi Lubin 09/02/2013 10:09 elephone Encounter - Raiza Shin - 09/01/2013 1033 EDT Patient was seen 08/24/13 and had a biopsy done on her collar bone area. She has been using petroleum jelly. The area is red, a little swollen, started to ooz a lite colored discharge yesterday, no blood, no odor. When she removes the bandage it's still sore. There is a white ring around the area. Outside of the white ring is a red ring. When she removes the bandage and applies the bandage she has two red rashes that itch and burn. How does she treat the rash and what should she be doing to the wound?Please call patient. documented in this encounter Plan of Treatment Not on filedocumented as of this encounter Visit Diagnoses Not on filedocumented in this encounter Care Teams Professional Employer Consultant Relationship Specialty Start Date End Date Sylvester Turcios MD PCP - General 04/27/09 05/10/[address] [place] [address] documented as of this encounter
--- OUTSIDE RECORDS SUMMARY | 2022-02-07 00:23 | XMS_ITS | Encounter Summary ---
:1940 Author Organization [facility] Address [address] [place] [address] Care Team Providers Name Role Phone Sylvester Turcios MD Primary Care Provider [phone] Encounter Details Date Type Department Care Team Description 03/14/2010 [facility] Ruben Jacob MD Dermatology - [facility] [address] [address] [address], [place] [address] (Wo rk) Social History [...] on filedocumented in this encounter Care Teams Operations Lead Relationship Specialty Start Date End Date Sylvester Turcios MD PCP - General 04/27/09 05/10/[address] [place] [id number] documented as of this encounter
--- OUTSIDE RECORDS SUMMARY | 2022-02-07 00:23 | XMS_ITS | Encounter Summary ---
:1940 Author Organization [facility] Address [address] [place] [address] Care Team Providers Name Role Phone Sylvester Turcios MD Primary Care Provider [phone] Encounter Details Date Type Department Care Team Description 01/03/2013 Hospital Encounter [facility] Yaz Flores [facility] Anabel Lund MD [address] [address] [address] [place] [address] (Wo rk) Social History Tobacco Use Types Packs/Day Years Used Date Former Smoker 1 4 Quit: 06/22/18 68 Alcohol Use Standard Drinks/Week Comments No 0 (1 standard drink = 0.6 oz pure alcoho l) Sex Assigned at Date Recorded Female 05/26/2019 14:58 EST documented as of this encounter Medications at Time of Discharge Medication Sig Dispensed Refills Start Date End Date ASCORBATE CALCIUM Take by mouth as 0 (VITAMIN C ORAL) needed. Reported on 11/12/2016 aspirin 81 mg EC tablet Take 81 mg by mouth 0 daily. Reported on 11/12/2016 CALCIUM CARBONATE Take 1 Tab by mouth 0 (CALCIUM 600 ORAL) daily. Reported on 11/12/2016 Cholecalciferol, Vitamin Take 500 Units by 0 D3, (VITAMIN D) 1,000 mouth daily. unit Cap IBUPROFEN ORAL Take by mouth as 0 03/06/2010 needed. MULTIVITAMINS Take 1 Tablet by 0 (MULTI-VITAMIN ORAL) mouth daily. Azelaic Acid (FINACEA) 15 Small amount nightly 1 Tube 11 12/09/2011 02/16/2013 % Gel BIOTIN ORAL Take 3,000 mcg by 0 2013 mouth daily. ibuprofen (ADVIL;MOTRIN) Take 400 mg by mouth 0 08/24/2013 100 mg/5 mL suspension as needed. MAGNESIUM ORAL Take by mouth daily. 0 08/24/2013 minocycline (DYNACIN) 50 Take 1 Tab by mouth 30 Each 3 02/16/2013 mg tablet daily as needed. documented as of this encounter Discharge Disposition Disposition Code Departure Means Destination Auto Discharge Home documented in this encounter Plan of Treatment Not on filedocumented as of this encounter Visit Diagnoses Not on filedocumented in this encounter Care Teams Blending Tank Tender Helper Relationship Specialty Start Date End Date Sylvester Turcios MD PCP - General 04/27/09 05/10/[address] [place] [address] documented as of this encounter
--- OUTSIDE RECORDS SUMMARY | 2022-02-07 00:23 | XMS_ITS | Encounter Summary ---
:1940 Author Organization [facility] Address [address] [place] [address] Care Team Providers Name Role Phone Sylvester Turcios MD Primary Care Provider [phone] Encounter Details Date Type Department Care Team Description 12/25/2005 Before [facility] - Elliot Jacob , Converted [facility] [address] [place] [address] [facility] [address] [place] [phone] (Wo rk) Social History Tobacco Use Types Packs/Day Years Used Date Never Assessed Sex Assigned at Date Recorded Female 05/26/2019 14:58 EST documented as of this encounter Progress Notes Elliot Jacob MD - 06/15/2009 2103 EST DIVISION OF DERMATOLOGY PROGRESS/FOLLOWUP NOTE - 12/24/2005 December 24, 2005 Lizzette Solares PA-C [facility] [address] [place] [address] Dear Angela: I had the pleasure of seeing your patient, Brooke Rojo, on 12/24/05 for treatment of a basal carcinoma of the left judaism/forehead measuring 0.5 by 0.5 As you know, the patient is a 65-year-old woman who was seen in consultation for the first time for same day consultation and surgery. She has had Mohs surgery on a number of occasions in the past. Therisks and benefits of Mohs surgery and other therapeutic options were once again discussed with the patient, and formal consent for surgery was obtained. A repeat examination revealed no significant changes from the consultation examination. The vital signs were obtained and documented in the patients operative record. At surgery, the tumor was excised in one stage of Mohs surgery, leading to a defect measuring 0.7 by 0.8 centimeters and extending to subcutis. A detailed discussion about the various options forrepair led to the joint decision to repair the wound linearly. The patient was discharged from the operative suite to home in good condition. Shewas carefully instructed in postoperative wound care both verbally and in writing. The patient will see me in followup in one week for suture removal, sooner for any concerns. Thank you for your confidence in me and for allowing me to work with you on the care of this patient. Please feel free to contact me with any questions. Sincerely, Signed by Elliot Jacob MD 01/13/2006 10:14 Cecilio Boateng MD Elliot Jacob MD - Elliot Jacob MD P - dd Job ID: [id number] Document ID: [id number] cc: CEM Fernandez MD documented in this encounter Procedure Notes Elliot Jacob MD - 06/15/2009 2103 EST DIVISION OF DERMATOLOGY PROCEDURE REPORT SERVICE DATE: 12/24/2005 OPERATION: MOHS COMPLEX REPAIR SURGEON: Elliot Jacob MD NURSE: Pauline Hanna RN COW TRIMMER: Ivan Albert MD I was present during all guerra and critical portions of this procedure and remained immediately available throughout. I personally performed the guerra elements of the procedure. 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 PREOPERATIVE PROCEDURE: Complex linear closure INDICATIONS: The patient is a 65-year-old woman who presents with a defect of the left judaism/forehead measuring 0.7 by 0.8centimeters following tumor extirpation by Mohs microscopically controlled excision. After careful consideration and discussionof all repair options, it was determined that, given the locationand nature of the defect, a multilayered complex linear closure offered the best chance for preservation of normal anatomic and functional relationships. Alternate options were discussed and the patient was encouraged to ask questions, which, I believe, were answered to hersatisfaction. The patient was informed of the risks of the operative repair, which include, but are not limited to, bleeding, scarring, infection, permanent damage to vascular and neural structures with resultant dysfunction, and unsatisfactory cosmetic result. Informed consent was obtained in writing. After informed consent was o btained and appropriate instruction was provided, the patient underwent operative repair as follows. PROCEDURE: The patient was brought to the operative suite and was placed in the recumbent position. The Mohs operative defect on the left judaism/foreheadwas identified, and the area was infiltrated with lidocaine/epinephrine to achieve complete anesthesia and to augment hemostasis. area was prepped in the usual sterile fashion with povidone, and was draped with sterile drapes. A linear closure was designed withcare to place the operative repair within functional and cosmetic lines to minimize the postoperative distortion of normal tissues. A repair coursing from inferomedial to superolateral toward the hairline was most appropriate. The wound edges were prepared using a #15 scalpel blade to precisely delineate the operative repair and were then extensively undermined with combined blunt and, as needed, sharp dissection taking great care to avoid functionally vessels and nerves. Undermining was carried outat the level of the subcutis. Hemostasis of the operative wound was obtainedwith careful spot electrocoagulation, and ligature as indicated. The wound edges were then approximated using 5-0 Vicryl buried interrupted sutures at the level of the subcutis and dermis. The epidermis was then approximated using simple interrupted 5-0 Prolene sutures. The final wound length was 2.4 cm. FINAL DIAGNOSIS: Defect following microscopically controlled excision of basal cell carcinoma left judaism/forehead. FINAL PROCEDURE: Complex Linear Operative Repair BLOOD LOSS: Minimal. OPERATIVE TIME: 45 minutes COMPLICATIONS: None. NOTE: Signed by Elliot Jacob MD 01/13/2006 10:14 Cecilio Boateng MD Elliot Jacob MD - Elliot Jacob MD P - dd Job ID: [id number] Document ID: [id number] cc: Elliot Jacob MD - 06/15/2009 2103 EST DIVISION OF DERMATOLOGY PROCEDURE REPORT SERVICE DATE: 12/25/2005 PROCEDURE: MOHS OPERATION SURGEON: Elliot Jacob MD NURSE: Pauline Hanna RN COW TRIMMER: Ivan Albert MD I was present during all guerra and critical portions of this procedure and remained immediately available throughout. I personally performed the guerra elements of the procedure. PREOPERATIVE DIAGNOSIS: Basal cell carcinoma left judaism/forehead. PREOPERATIVE PROCEDURE: Mohs microscopically-controlled fresh tissue excision INDICATIONS: The patient is a 55-year-old woman who presents with a basal cell carcinoma of the left judaism measuring 0.5 by 0.5centimeters. Because of the histologic and clinical nature of the lesion, as well as its location, the need to achieve the highest cure rate while providing maximum tissue preservation warranted tumor extirpation via microscopically-controlled excision using the Mohs fresh tissue technique. Alternate therapeutic options were discussed on several occasions prior to surgery. After informed consent was obtained and appropriate instruction was provided, the patient underwent tumor extirpation by the Mohs fresh tissue technique as follows: PROCEDURE: Stage 1: The patient was brought to the operative suite and was placed in the position. The lesion was identified and was prepped with Betadine. The area was infiltrated with lidocaine/epinephrine to achieve complete anesthesia and to augment hemostasis. An initial beveled was performed with #15 blade at a 45 d egree inward angle. A hash was created in the specimen and within the adjacent epidermis for markingpurposes. The Mohs specimen was excised in a sharp manner, and carefully placed in proper orientation on the surgical tray. Hemostasis of the operative wound was obtained with careful spot electrocoagulation. A sterile non-adherent dressing was applied to the operative wound. The Mohs tissue specimen was carefully transferred to the lab where the tissue was divided into 2sections. These sections were mapped, color coded at their margins, and handed personally to the plant and maintenance technician for frozen sectioning. The tissue was embedded so that the deep and surface margins lay in the same plane, and sections were made through this plane. All specimens were then evaluated histologicallyby me and microscopic tumor was found to persist in 0 sections of the first stage. With the patient clear of microscopic tumor, surgery was considered complete. Following surgery the defect measured 0.8 by 0.7 centimeters. FINAL DIAGNOSIS: Basal cell carcinoma left judaism/forehead. FINAL PROCEDURE: Mohs microscopically-controlled fresh tissue excision CONDITION: Good. OPERATIVE TIME: 45 minutes per stage COMPLICATIONS: None. NOTE: Signed by Elliot Jacob MD 01/13/2006 10:15 Dimas Jacob MDGlgertrude Jacob MD Elliot Jacob MD - Elliot Jacob MD P - dd Job ID: [id number] Document ID: [id number] cc: documented in this encounter Plan of Treatment Not on filedocumented as of this encounter Visit Diagnoses Not on filedocumented in this encounter Care Teams Theatrical Agent Relationship Specialty Start Date End Date Sylvester Turcios MD PCP - General 04/27/09 05/10/[address] [place] [id number] documented as of this encounter
--- OUTSIDE RECORDS SUMMARY | 2022-02-07 00:23 | XMS_ITS | Encounter Summary ---
:1940 Author Organization [facility] Address [address] [place] [address] Care Team Providers Name Role Phone Sylvester Turcios MD Primary Care Provider [phone] Encounter Details Date Type Department Care Team Description 09/30/2005 Results Only [facility] - Lizzette Wheeler, conversion PA-C [address] [facility] [address] [place] [address] ,[address] [place], [place] [address] (Wo rk) Social History Tobacco Use Types Packs/Day Years Used Date Never Assessed Sex Assigned at Date Recorded Female 05/26/2019 14:58 EST documented as of this encounter Plan of Treatment Not on filedocumented as of this encounter Procedures Procedure Name Priority Date/Time Associated Diagnosis Comme nts SURGICAL PATHOLOGY Routine 09/30/2005 0:00 EDT Re sults for this procedure are i n the results section. documented in this encounter Results SURGICAL PATHOLOGY (09/30/2005 0:00 EDT) Pathology Report: SURGICAL PATHOLOGY REPORT MORENO A CAREYELIZABETH Reports generated via electronic interface contain sharmila ginal data; LAB however they are lacking the format of the original re port. Caution should be taken when reading/interpreting unfo rmatted reports. Name: ? BROOKE ROJO ? Accession #: ? [id number] ? : ? 1940 (Age: 65) ??F ? Collect Date: ? 09/30/2005 ? Location: ? [facility] ? Receive Date: ? 006 ? Provider: LIZZETTE SOTO Copy to: PARISH BENZ MD ? Final Pathologic Diagnosis: ? Skin of confucianist, left, shave biopsy: - Basal cell carcinoma, superficial and micronodular t ypes. Document reviewed and electronically signed by: Wilmar Norris MD Report ??Date: 10/02/2005 15:24 By the signature above, the attending physician certif ies that he/she has personally conducted a gross and/or microscopic examin ation of the described specimens and rendered or confirmed the above diagnosi s. Specimen(s) Received: ? Skin left confucianist Clinical History: ? How 6 mo f/up, reacted to Carac; 6 mo hx ulcera tion, now 4-5 mm pink somewhat domed shaped twin papule with telangiec jean claude but no pearliness; BCC; clinical diagnosis code: ??238.2 Gross Description: ? Received in formalin labelled Szely and left confucianist is an irregular 0.5 x 0.3 cm white skin shave. ? ?The specimen is bisected and submitted entirely in one cassette. ??(Andrew Shelton[place] End of Report Specimen Performing Organization Address City/State/ZIP Code Phon e Number [facility] [address] [place] [address] [facility] [address] [place] [address] documented in this encounter Visit Diagnoses Not on filedocumented in this encounter Care Teams Operations Associate Relationship Specialty Start Date End Date Sylvester Turcios MD PCP - General 04/27/09 05/10/[address] [place], [place] [id number] documented as of this encounter
--- OUTSIDE RECORDS SUMMARY | 2022-02-07 00:23 | XMS_ITS | Encounter Summary ---
:1940 Author Organization [facility] Address [address] [place] [address] Care Team Providers Name Role Phone Sylvester Turcios MD Primary Care Provider [phone] Alea Esqueda MD Primary Care Provider Unknown, Provider Primary Care Provider Ml Roche NP Primary Care Provider Encounter Details Date Type Department Care Team Description 12/14/2007 Hospital Encounter [facility] - ACC [address], MD [place] [address] [place] [address] Social History Tobacco Use Types Packs/Day Years [...] on filedocumented in this encounter Care Teams Derrick Operator Relationship Specialty Start Date End Date Sylvester Turcios MD PCP - General 04/27/09 05/10/[address] [place] [id number] Alea Esqueda MD PCP - General 05/11/14 02/22/[address] [place] [phone] Unknown, Provider, PCP - General 11/07/20 11/11/20 Ml Roche NP PCP - General 11/12/[address] [place] [address] [address] [place] [id number] documented as of this encounter
--- OUTSIDE RECORDS SUMMARY | 2022-02-07 00:23 | XMS_ITS | Encounter Summary ---
:1940 Author Organization [facility] Address [address] [place] [address] Care Team Providers Name Role Phone Sylvester Turcios MD Primary Care Provider [phone] Alea Esqueda MD Primary Care Provider Unknown, Provider Primary Care Provider Ml Roche NP Primary Care Provider Encounter Details Date Type Department Care Team Description 04/22/2006 Hospital Encounter [facility] CEM Miller [address] [address] ,[address] [place], [place] [address] (Wo rk) Social History [...] on filedocumented in this encounter Care Teams Software Systems Engineer Relationship Specialty Start Date End Date Sylvester Turcios MD PCP - General 04/27/09 05/10/[address] [place] [address] Alea Esqueda MD PCP - General 05/11/14 02/22/20 [address] [place] [address] Unknown, MD Ya PCP - General 11/07/20 11/11/20 Ml Roche NP PCP - General 11/12/[address] [place] [address] documented as of this encounter
--- OUTSIDE RECORDS SUMMARY | 2022-02-07 00:23 | XMS_ITS | Encounter Summary ---
:1940 Author Organization [facility] Address [address] [place] [address] Care Team Providers Name Role Phone Unavailable Primary Care Provider Unavailable Encounter Details Date Type Department Care Team Description 12/14/2007 Before PRISM Converted [facility] - Lili Barlow rd, MD Visit (Maple) Maple conversion [address] [place] [address] Social History Tobacco Use Types Packs/Day Years Used Date Never Assessed Sex Assigned at Date Recorded Female 05/26/2019 14:58 EST documented as of this encounter Progress Notes Bogdan Barlow MD - 03/23/2009 1042 EDT [facility] [id number] December 14, 2007 Referring Provider: Dr. Back Date of Examination: 12/14/2007 Reason for Study: Menopausal symptoms (627.2) Densitometer: [place] Prodigy Quality of Study: Spine L1-L2: Adequate for interpretation L3 and L4 excluded due to arthritis or scoliosis. Proximal Femur (hip): Adequate for interpretation The results of this study and any comparable previous studies are as follows: Region Scan Date g/cm2 % Young Normal Control % Age Matched T-Score Total Hip (mean) 05/02/2003 0.708 70 79 -2.5 Total Hip (mean) 03/14/2005 0.746 74 85 -2.1 Femoral Neck (mean)* 12/14/2007 0.672 65 81 -2.6 Total Hip (mean) 12/14/2007 0.715 71 84 -2.3 Change from first to last 0.01 Percent Change from first to last 1% Change from most recent to last -0.03 Percent Change from most recent to last -4% AP Spine L1-L2 05/02/2003 0.879 76 87 -2.3 AP Spine L1-L2 03/14/2005 0.931 79 93 -2.0 AP Spine L1-L2 12/14/2007 0.895 76 91 -2.3 Change from first to last 0.02 Percent Change from first to last 2% Change from most recent to last -0.04 Percent Change from most recent to last -4% *This site has the lowest bone density in the hip area and therefore is being used for diagnosis. For comparison to prior hip scans, the bone density of the total hip (mean) will be used. Compared to the precision error of the densitometer, the bone density of the hip has remained stablesince the initial study and remained stable since the most recent previous study. The bone density of the spine has remained stable since the initial study and decreased since the most recent previous study. WHO Classification by T-score The T-score in bone densitometry measures the number of standard deviations the density is below that of a young adult population matched for sex. The World Health Organization (WHO) has classified bone mass using T-score as follows: Normal: T-score of -1 or greater Little risk of fracture Osteopenia: T-score between -1 and -2.5 Low bone mass Osteoporosis: T-score of -2.5 or less Increased risk of fracturing Severe Osteoporosis:by T-score plus previous fragility fracture Diagnosis by WHO Classification: Osteoporosis At this level there is an increased risk of fracturing. Fracture Risk Calculation The ten year probability of developing a fracture is 19%. This compares to the average 10 year risk for a woman of the same age of 14%. (ref. Deyanira DICKERSON et al, Osteop Int. 2001) Risk Factors Identified by the Patient ?? Maternal or paternal history of hip fracture* ?? Inadequate lifetime calcium intake The risk factor listed above with an * are able to be quantified and will increase the 10 year risk to 25%. Patient's Present Therapy and Suggested Treatment Patient's dietary intake of calcium from questionnaire: 350 mg. Patient's calcium supplementation from questionnaire: 1200 mg. NIH Consensus Panel recommendation: 1500 mg. Adequate vitamin D is recommended: 400-800 units daily. These recommendations for calcium and vitamin D intake may not apply to people with chronic kidney disease or who are on dialysis. Patient should also be encouraged to participate in weight bearing exercise. Hormone replacement therapy (HRT) is not indicated for the prevention of bone loss alone but may be prescribed if there are additional indications such as menopausal symptoms. An assessment was made ofthe risks for such therapy. No risk factors were identified specific to this individual. Based on the above evaluation, therapy with a bisphosphonate, raloxifene, or calcitonin is approved for the treatment of osteoporosis. Hormone replacement could be used if there are other indications for its use. The measurement of bone mass cannot diagnose or adequately screen for the presence of metabolic bonedisease. Therefore, when clinically indicated, additional studies may be needed. A report of our findings has been sent to your patient. Sincerely, Bogdan Barlow M.D. Director [facility] 12/15/2007 11:31 AM [facility] Document ID: [id number] Bogdan Karimi MD - 03/19/2009 1338 EDT [facility] [address] December 14, 2007 Referring Provider: Dr. Back Date of Examination: 12/14/2007 Reason for Study: Menopausal symptoms (627.2) Densitometer: [place] Quality of Study: Spine L1-L2: Adequate for interpretation L3 and L4 excluded due to arthritis or scoliosis. Proximal Femur (hip): Adequate for interpretation The results of this study and any comparable previous studies are as follows: Region Scan Date g/cm2 % Young Normal Control % Age Matched T-Score Total Hip (mean) 05/02/2003 0.708 70 79 -2.5 Total Hip (mean) 03/14/2005 0.746 74 85 -2.1 Femoral Neck (mean)* 12/14/2007 0.672 65 81 -2.6 Total Hip (mean) 12/14/2007 0.715 71 84 -2.3 Change from first to last 0.01 Percent Change from first to last 1% Change from most recent to last -0.03 Percent Change from most recent to last -4% AP Spine L1-L2 05/02/2003 0.879 76 87 -2.3 AP Spine L1-L2 03/14/2005 0.931 79 93 -2.0 AP Spine L1-L2 12/14/2007 0.895 76 91 -2.3 Change from first to last 0.02 Percent Change from first to last 2% Change from most recent to last -0.04 Percent Change from most recent to last -4% *This site has the lowest bone density in the hip area and therefore is being used for diagnosis. For comparison to prior hip scans, the bone density of the total hip (mean) will be used. Compared to the precision error of the densitometer, the bone density of the hip has remained stablesince the initial study and remained stable since the most recent previous study. The bone density of the spine has remained stable since the initial study and decreased since the most recent previous study. WHO Classification by T-score The T-score in bone densitometry measures the number of standard deviations the density is below that of a young adult population matched for sex. The World Health Organization (WHO) has classified bone mass using T-score as follows: Normal: T-score of -1 or greater Little risk of fracture Osteopenia: T-score between -1 and -2.5 Low bone mass Osteoporosis: T-score of -2.5 or less Increased risk of fracturing Severe Osteoporosis:by T-score plus previous fragility fracture Diagnosis by WHO Classification: Osteoporosis At this level there is an increased risk of fracturing. Fracture Risk Calculation The ten year probability of developing a fracture is 19%. This compares to the average 10 year risk for a woman of the same age of 14%. (ref. Deyanira DICKERSON et al, Osteop Int. 2001) Risk Factors Identified by the Patient ?? Maternal or paternal history of hip fracture* ?? Inadequate lifetime calcium intake The risk factor listed above with an * are able to be quantified and will increase the 10 year risk to 25%. Patient's Present Therapy and Suggested Treatment Patient's dietary intake of calcium from questionnaire: 350 mg. Patient's calcium supplementation from questionnaire: 1200 mg. NIH Consensus Panel recommendation: 1500 mg. Adequate vitamin D is recommended: 400-800 units daily. These recommendations for calcium and vitamin D intake may not apply to people with chronic kidney disease or who are on dialysis. Patient should also be encouraged to participate in weight bearing exercise. Hormone replacement therapy (HRT) is not indicated for the prevention of bone loss alone but may be prescribed if there are additional indications such as menopausal symptoms. An assessment was made ofthe risks for such therapy. No risk factors were identified specific to this individual. Based on the above evaluation, therapy with a bisphosphonate, raloxifene, or calcitonin is approved for the treatment of osteoporosis. Hormone replacement could be used if there are other indications for its use. The measurement of bone mass cannot diagnose or adequately screen for the presence of metabolic bonedisease. Therefore, when clinically indicated, additional studies may be needed. A report of our findings has been sent to your patient. Sincerely, Bogdan Barlow M.D. Director [facility] 12/15/2007 11:31 AM [facility] Document ID: [id number] documented in this encounter Plan of Treatment Not on filedocumented as of this encounter Visit Diagnoses Not on filedocumented in this encounter
--- OUTSIDE RECORDS SUMMARY | 2022-02-07 00:23 | XMS_ITS | Encounter Summary ---
:[address] [facility] Address [address] [place] [address] Care Team Providers Name Role Phone Sylvester Turcios MD Primary Care Provider [phone] Encounter Details Date Type Department Care Team Description 12/14/2012 Results Only [facility] KALYA Lund MD [phone] [place] [address] (Wo rk) Social History Tobacco [...] Procedure Name Priority Date/Time Associated Comments Diagnosis RAD US JACOB BREAST 01/03/2013 13:57 Resul ts for this UNILATERAL - ONE EDT procedure a re in BREAST the results section. documented in this encounter Results RAD US JACOB BREAST UNILATERAL - ONE BREAST (01/03/2013 13:57 EDT) Anatomical Region Laterality Modality Other Specimen [...] Organization Address City/State/ZIP Code Phon e Number [facility] documented in this encounter Visit Diagnoses Not on filedocumented in this encounter Care Teams Surveying Technician Relationship Specialty Start Date End Date Sylvester Turcios MD PCP - General 04/27/09 05/10/[address] [place] [id number] documented as of this encounter
--- OUTSIDE RECORDS SUMMARY | 2022-02-07 00:23 | XMS_ITS | Encounter Summary ---
:1940 Author Organization [facility] Address [address] [place] [address] Care Team Providers Name Role Phone Unavailable Primary Care Provider Unavailable Encounter Details Date Type Department Care Team Description 09/30/2005 Hospital Encounter [facility] [address] [address] ,[address] [place], [place] [address] (Wo rk) Social History Tobacco Use Types [...]
--- OUTSIDE RECORDS SUMMARY | 2022-02-07 00:23 | XMS_ITS | Encounter Summary ---
:1940 Author Organization [facility] Address [address] [place] [address] Care Team Providers Name Role Phone Sylvester Turcios MD Primary Care Provider [phone] Reason for Visit Reason Comments Skin Exam Left clavicle, left ear, lef t forehead Encounter Details Date Type Department Care Team Description 08/24/2013 Office Visit [facility] Lauro Bowman Personal history of other malignant neoplasm of skin (Primary Dx); Dermatology - MD Angela Brar; [address] Neoplasm of uncertain behavi or of skin [address] [place], [place] [id number] [place] [address] [facility] [address] [place] [address] (Wo rk) Social History Tobacco Use Types Packs/Day Years Used Date Former Smoker 1 4 Quit: 06/22/18 68 Smokeless Tobacco: Never Used Alcohol Use Standard Drinks/Week Comments No 0 (1 standard drink = 0.6 oz pure alcoho l) Sex Assigned at Date Recorded Female 05/26/2019 14:58 EST documented as of this encounter Discharge Diagnoses Diagnosis 239.2 BONE/SKIN NEOPLASM NOS[ICD-9-CM] V10.83 PERS HX SKIN MALIGNANCY NEC[ICD-9 -CM] 695.3 ROSACEA[ICD-9-CM] documented in this encounter Patient Instructions Patient InstructionsScar Lee - 08/24/2013 11:07 EST SUN PROTECTION AND SUN SCREENS Repeated and prolonged exposure to sunlight greatly increases your risk of all types of skin cancer.In addition, chronic sun exposure is the major cause of wrinkles, spotty, and unhealthy appearing skin. It???s important to have a healthy and active lifestyle and we encourage you to continue this. However, some common sense guidelines will help to keep your skin and eyes safe. ?? Avoid the hot mid-day sun. Try to schedule your outdoor activities for convertible sofa bedspring tester or early evening. ?? Make clothing a regular part of protection. Keep your shirt on- wear long sleeves and a wide brimmed hat. ?? Be especially careful when on the water, snow or sand as sunlight is reflected upwards from thesesurfaces. ?? Don???t forget your eyes! Wear sunglasses- Sun exposure increases your risk for cataracts. ?? Make sure your children practice good [...] ???waterproof?? sunscreen is usually good for about 3 hours, even if you???re swimming. A ???water resistant?? sunscreen should be reapplied every 2 hours and after swimming. Remember to put sunscreen on your ears and lips. There are many lip balms available with sunscreen. For more information about sun protection and skin cancer: www.skincancer.org Sunscreens: Sunlight is made up of different [...] is responsible for causing wrinkles,brown spots and possibly melanoma. For this reason, we recommend that you don???t use tanning beds and that you use sunscreen with both UVA and UVB protection. Most sunscreen ingredients are good at blocking UVB light. The only ingredients that also do a goodjob blocking UVA light are listed below. Make sure your sunscreen contains one of these ingredients.CAUTION: in some people Parasol may cause staining of white clothing. ?? Parasol (avobenzone) ?? Zinc Oxide ?? Titanium Oxide Some recommended brands: ?? Blue Lizard ?? Coppertone ?? Neutrogena ?? Bull Frog Good ???everyday?? moisturizer for the face: ?? Oil of Olay Complete Sun Protection - SPF 15 ?? Cetaphil daily facial moisturizer - SPF 15 ?? Neutrogena daily facial moisturizer - SPF 30 Recommended resources for sun protective clothing and hats: ?? www.[employer] [place] ?? www.VeriShow DERMATOLOGY WOUND CARE INSTRUCTIONS FOR SKIN BIOPSY The DRESSING/BANDAID should remain in place for 24 hours. You may shower or bathe after 24 hours; remove the bandage and replace it after the shower. DISCOMFORT: Extra-Strength Tylenol, as directed by steel unloader, usually relieves any pain you may have. BLEEDING: You may notice some blood on the edges of the dressing the first day and this is NORMAL. If the bleeding soaks through the dressing, remove the dressing, and apply firm, steady pressure with a moist clean wash cloth for fifteen minutes. If the bleeding stops, redress the wound, if not, call our office at . ACTIVITY: You may resume normal activity in 1 day unless instructed otherwise. WOUND CARE: ?? Wash hands with soap and water before changing the dressing. ?? Change the dressing daily and when it becomes wet. Clean the wound daily with mild soap and water. You may gently loosen any crusts with a cotton swab.The wound may be slightly tender and may bleed a small amount. A small amount of discharge is normal. Apply a thin layer of sterile petroleum jelly over the wound. Cover the wound with a Telfa (non-stick) dressing or bandage. It is important to keep the wound covered. CONTACT THE OFFICE IF YOU EXPERIENCE: ?? increased redness ?? warmth to touch ?? increased pain ?? drainage with a foul odor ?? rapid swelling of the wound ?? fever or chills Please call our office or . documented in this encounter Progress Notes Scar Lee - 08/24/2013 1108 EST Dermatology Outpatient Visit Note Chief Complaint Patient presents with ??? Skin Exam Left clavicle, left ear, left forehead Dermatologic History: 1. 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 Rosacea Last Dermatology office visit: 02/16/2013 SUBJECTIVE Ms. Rojo is a 73 y.o. female who presents for follow up for skin check. She uses minocycline and azelaic acid for rosacea, only during outbreaks which is infrequent. There is a spot on the left neck that is changing- it was irritated by her seatbelt and it bled then. There are no significant interim health changes. The patient reports good sun avoidance and sunscreen use. Review of Systems Constitutional: Negative for fever, [...] Neurological: Negative for numbness and headaches. Endo/Heme/Allergies: Bruises/bleeds easily. Psychiatric/Behavioral: Negative for sleep disturbance. The patient is not nervous/anxious. For full Medical, Surgical, Family, and Social [...] carbonate, cholecalciferol (vitamin d3), diphenhydramine hcl, ibuprofen, minocycline, and multivitamin. She is allergic to meclizine. OBJECTIVE VS: There were no vitals taken for this visit. Ms. Rojo is in no acute distress female sitting on the examination table with a normal affect. She is alert and oriented to person, place and time. She has Bucio type II skin. Cutaneous full body examination including the hair, scalp, face, eyelids, lips, neck, chest, back abdomen, all four extremities, hands, feet, digits and nails. was performed.The examination was normal with the addition of the following comments: -On the face there are ~5 inflamed papules -On the left supraclavicular neck there is a pink ~8 mm plaque ASSESSMENT 1. Neoplasm on left supraclavicular neck, BCC vs irritated seborrheic keratosis 2. Rosacea, fairly inactive today 3. History of numerous BCCs PLAN 1. Recommended biopsy of the lesion on the left supraclavicular neck given the concern for malignancy. The patient agrees with this plan. Advised the patient on the risks of biopsy, including pain, infection, bleeding and scar formation. Will call with biopsy results when available, and make further treatment recommendations based on the results. 2. Continue minocycline and azelaic acid as needed for flares; no need for labs given infrequent use. 3. Return in 1 year for skin check She will f/u as planned or in the interim should problems arise. SHAVE BIOPSY PATIENT INFORMATION: Brooke Rojo : MRN: [id number] SURGEON: Scar Lee MD, Lauro Bowman MD The indication, risks, benefits and alternatives to this procedure were discussed in detail with thepatient and all questions were answered. Informed consent was obtained in writing. PROCEDURE NOTE Specimen A Procedure: Tangential Shave Indication: Diagnostic Biopsy Site: left supraclavicular neck Anesthesia: 1% lidocaine with epinephrine 1:100,000 local infiltration Prep: Alcohol The lesion was prepped as above and locally anesthetized. The specimen was removed by tangential shave using a Dermablade??. Hemostasis was achieved with pressure and/or aluminum chloride. The wound was cleansed with alcohol and a sterile dressing was applied over Petrolatum ointment. Verbal and written wound care instructions were given.The specimen was submitted to pathology for histological evaluation. Scar Lee MD 08/24/2013 11:05 Attestation Statement: I saw and examined the patient with the resident/fellow. I agree with the findings and plan of care documented in the resident's/fellow's note. I was present for the entire procedure. LAURO BOWMAN MD 09/05/2013 13:28 cocoa bean roaster Ngozi Valdez - 08/24/2013 1103 EST Review of Systems Constitutional: Negative for fever, [...] Neurological: Negative for numbness and headaches. Endo/Heme/Allergies: Bruises/bleeds easily. Psychiatric/Behavioral: Negative for sleep disturbance. The patient is not nervous/anxious. documented in this encounter Plan of Treatment Not on filedocumented as of this encounter Procedures Procedure Name Priority Date/Time Associated Diagnosis Comme nts SURGICAL PATHOLOGY Routine 08/24/2013 13:28 Resul ts for this EST procedure are i n the results section. documented in this encounter Results SURGICAL PATHOLOGY (08/24/2013 13:28 EST) Pathology Report: SURGICAL PATHOLOGY REPORT TIFFANIE ASHBY Reports generated via electronic interface contain sharmila ginal data; LAB however they are lacking the format of the original re port. Caution should be taken when reading/interpreting unfo rmatted reports. Name: ? BROOKE ROJO ? Accession #: ? [id number] ? : ? 1940 (Age: 73) ??F ? Collect Date: ? 08/24/2013 ? Location: ? [facility] ? Receive Date: ? 08/25/19 14 ? Provider: LAURO BOWMAN MD Copy to: SCAR LEE MD ? Final Pathologic Diagnosis: SKIN OF NECK, LEFT SUPRACLAVICULAR, SHAVE BIOPSY: - Basal cell carcinoma, superficial and nodular type. - Basal cell carcinoma does not extend to edges of shave biopsy specimen in the plane of the sections examined. - Basal cell carcinoma present approximately 1.0 mm fr om closest peripheral tissue edge. - Basal cell carcinoma present approximately 0.1 mm from base of shave biopsy specimen. Microscopic Description: Emanating from the epidermis and present within the de rmis are irregularly shaped islands of atypical b donny cells. The basal cells have scant cytoplasm and round dark nuclei. ??Mitotic figures and apoptotic bod ies are evident. ??The nuclei at the periphery of the islands have a palisade d arrangement. ??The islands are associated with a fibromyxoid stroma and there is cleft formation between some of the islands and stroma. ??(Dr. Gresham)/isabel cornelius Document reviewed and electronically signed by: AWA GRESHAM MD Report ??Date: 08/25/2013 12:38 By the signature above, the attending physician certif ies that he/she has personally conducted a gross and/or microscopic examin ation of the described specimens and rendered or confirmed the above diagnosi s. Specimen(s) Received: Left supraclavicular neck Clinical History: Lamy plaque; clinical diagnosis code: 238.2 Gross Description: ? Received in formalin labelled with proper patient identification (initials S, K) and left supraclavicu lar neck is a shave biopsy of padilla-white skin (1.1 x 0.9 cm). There is an eccen tric irregular william-white smooth papule that measures 0.5 x 0.4 x less than 0.1 cm. ??Trisected and submitte d in 1. Rosey Sullivan 08/24/2013 02:57 PM End of Report Specimen Performing Organization Address City/State/ZIP Code Phon e Number [facility] [address] [place] [address] [facility] [address] [place] [address] documented in this encounter Visit Diagnoses Diagnosis Personal history of other malignant neop lasm of skin - Primary Rosacea Neoplasm of uncertain behavior of skin documented in this encounter Discontinued Medications Medication Sig Discontinue Reason Start Date End Date BIOTIN ORAL Take 3,000 mcg Patient Stopped 08/24/2013 by mouth Taking daily. hydrochlorothiazide Take 12.5 mg Patient Stopped 08/24 (HYDRODIURIL) 12.5 mg tablet by mouth every Taking 8 hours. ibuprofen (ADVIL;MOTRIN) 100 Take 400 mg by Patient Stopped 08/24/2013 mg/5 mL suspension mouth as Taking needed. MAGNESIUM ORAL Take by mouth Patient Stopped 4 daily. Taking documented as of this encounter Care Teams Retail Field Merchandiser Relationship Specialty Start Date End Date Sylvester Turcios MD PCP - General 04/27/09 05/10/[address] [place] [id number] documented as of this encounter
--- OUTSIDE RECORDS SUMMARY | 2022-02-07 00:23 | XMS_ITS | Encounter Summary ---
:[address] [facility] Address [address] [place] [address] Care Team Providers Name Role Phone Sylvester Turcios MD Primary Care Provider Encounter Details Date Type Department Care Team Description 03/17/2006 Before [facility] - Lizzette Solares Converted Visit Maple conversion [facility] ([place]) [address] [facility] [address] [place] [address] ,[address] [place] [address] (Wo rk) Social History Tobacco Use Types Packs/Day Years Used Date Never Assessed Sex Assigned at Date Recorded Female 05/26/2019 14:58 EST documented as of this encounter Progress Notes Blanca Solares - 06/26/2009 0524 EST DIVISION OF DERMATOLOGY PROGRESS/FOLLOWUP NOTE - 03/17/2006 PROBLEM: 1. Basal cell carcinoma, left roman catholic, status post Mohs surgery. 2. Seborrheic keratoses SUBJECTIVE: Brooke is seen in followup today for a total skin check. She last saw Dr. Jacob a few months ago and is very pleased with the results of the Mohs surgery. She has a growth on the right aspect of her chin that has been there for at least several weeks, possibly longer. She is not totally sure. She hasbeen taking tetracycline 250 mg three times a day and has seen some improvement. She has a history of rosacea that primarily affects the nose and she wonders if it could also affect the chin. The spot on the chin has not bled, but does get quite crusty. When I ask her about a spot on her left thigh, she says that she is not sure how long it has been there. Patient has had no interval health status agus nge. No constitutional symptoms today or any other complaints referable to the skin. OBJECTIVE: On physical examination, she appears well. The scalp, face, neck, back, chest, abdomen, intertriginous areas, and extremities were examined. is a well-healed scar present at the left roman catholic with evidence of recurrence of basal cell carcinoma. On the right aspect of the chin is a 3-mm in diameter papulonodule with crusting secondarily. It appears inflamed. No telangiectasia are present. On the left thigh anteriorly and distally, is a 5-mm in diameter, bright red, round, well-circumscribed, thin papule with telangiectasia within it. ASSESSMENT: 1. As above without evidence of recurrence. 2. Seborrheic keratoses. 3. Papule, likely inflammatory, right aspect of the chin in a patient with a history of rosacea. 4. Papule, left thigh, not yet diagnosed, suspicious for basal cell carcinoma. PLAN: 1. After her consent, a biopsy by shave technique for the papule on the left thigh was performed. Please see the consent form and procedure note for details. instructions reviewed and given. Will follow up as appropriate per biopsy results as needed. 2. For the irritated, inflamed papule on the right aspect of the chin, added Clindagel to be appliedtwice daily for the next month or so. Samples were given. She was also given a prescription for tetracycline 250 mg, one tablet p.o. t.i.d.; #90 with four refills. Advised her to continue to take this for the next month or so. Follow up in four to six weeks for reassessment the papule at the right aspect of the chin, or at her regularly scheduled skin exam if it is completely gone. We discussed the details of what that means. 3. Follow up in one year for total skin check. Sooner as needed. Signed by Lauro Johnson MD 03/25/2006 12:00 Reviewed by Lizzette Solares PA-C 03/23/2006 12:30 RMary AngelaNael Jasso PA-CJamie Alpert, MD Dictated by: Lizzette Solares PA-C Lauro Johnson MD - Lizzette Solares PA-C Adalberto Doe jr Job ID: [id number] Document ID: [id number] cc: - Angela Solares PA-C Adalberto Doe jr Job ID: [id number] Document ID: [id number] cc: documented in this encounter Plan of Treatment Not on filedocumented as of this encounter Visit Diagnoses Not on filedocumented in this encounter Care Teams Joiner Helper Relationship Specialty Start Date End Date Sylvester Turcios MD PCP - General 04/27/09 05/10/[address] [place] [address] documented as of this encounter
--- OUTSIDE RECORDS SUMMARY | 2022-02-07 00:23 | XMS_ITS | Encounter Summary ---
:1940 Author Organization [facility] Address [address] [place] [address] Care Team Providers Name Role Phone Unavailable Primary Care Provider Unavailable Encounter Details Date Type Department Care Team Description 09/16/2006 Hospital Encounter [facility] MD Sylvester [address],[facility] [place], [place] [address] (Wo rk) Social History Tobacco Use Types Packs/Day Years Used Date Never Assessed Sex Assigned at Date Recorded Female 05/26/2019 14:58 EST documented as of this encounter Discharge Disposition Disposition Code Departure Means Destination Auto Discharge documented in this encounter Plan of Treatment Not on filedocumented as of this encounter Procedures Procedure Name Priority Date/Time Associated Comments Diagnosis RAD US BREAST 09/16/2006 13:15 Results fo r this UNILATERAL - ONE EDT procedure a re in BREAST the results section. documented in this encounter Results RAD US BREAST UNILATERAL - ONE BREAST (09/16/2006 13:15 EDT) Anatomical Region Laterality Modality Other Specimen Narrative [facility] - 12/20/2008 10 :25 EDT 6 mo fup uni us/left - ensure stability of nodule 9:00 Ultrasound of the Breast, Unilateral: ?? Sep 16, 2006 1:22:18 PM Signs and Symptoms:: ??6 mo followup uni lateral us/left - ensure stability of nodule 9:00 Comparisons: 03/17/2006 and 09/16/2005 u ltrasounds. Findings: Focused diagnostic ultrasound of the left breast was performed. The hypoechoic mass at 9:00 o 'clock , 2.5 cm from the nipple, is unchanged in appearance. It m easures approximately 8 mm x 5 mm and has not changed significantly i n size. There is a small adjacent benign appearing calcification which is also unchanged. Impression Left Breast: BI-RADS Category Assessment 2: Benign Findings. Stable appearance of the nodule at 9:00 o'clock in the left breast. This is likely benign. Recommendation: Bilateral screening mamm ography in 6 months, one year from the prior bilateral screening mammo gram. The patient was told the results and rec ommendations of the study by the district plant supervisor. Overall Assessment - Benign finding. Procedure Note Naz Treviño MD - 12/20/2008 6 mo fup uni us/left - ensure stability of nodule 9:00 Ultrasound of the Breast, Unilateral: Antonio roach 2006 1:22:18 PM Signs and Symptoms:: 6 mo followup unila teral us/left - ensure stability of nodule 9:00 Comparisons: 03/17/2006 and 09/16/2005 u ltrasounds. Findings: Focused diagnostic ultrasound of the left breast was performed. The hypoechoic mass at 9:00 o 'clock , 2.5 cm from the nipple, is unchanged in appearance. It m easures approximately 8 mm x 5 mm and has not changed significantly i n size. There is a small adjacent benign appearing calcification which is also unchanged. Impression Left Breast: BI-RADS Category Assessment 2: Benign Findings. Stable appearance of the nodule at 9:00 o'clock in the left breast. This is likely benign. Recommendation: Bilateral screening mamm ography in 6 months, one year from the prior bilateral screening mammo gram. The patient was told the results and rec ommendations of the study by the district plant supervisor. Overall Assessment - Benign finding. Performing Organization Address City/State/ZIP Code Phon e Number [facility] [address] [facility] [address] [facility] [address] [place], [place] [address] documented in this encounter Visit Diagnoses Not on filedocumented in this encounter
--- OUTSIDE RECORDS SUMMARY | 2022-02-07 00:23 | XMS_ITS | Encounter Summary ---
:1940 Author Organization [facility] Address [address] [place] [address] Care Team Providers Name Role Phone Alea Esqueda MD Primary Care Provider Reason for Visit Reason Comments Skin Exam lesion about lip Basal Cell Carcinoma L forehead, L jewish, L thig h, chin X 2 Encounter Details Date Type Department Care Team Description 10/17/2014 Office Visit [facility] Lauro Johnson Seborrhe ic keratosis (Primary Dx); Dermatology - [facility] MD Angela Currie; [place] [address] [place] [address] History of basal cell cancer [address] [place], [place] [id number] [place] [address] [facility] [address] [place] [address] (Wo rk) Social History Tobacco Use Types Packs/Day Years Used Date Former Smoker 1 4 Quit: 06/22/18 68 Smokeless Tobacco: Never Used Alcohol Use Standard Drinks/Week Comments No 0 (1 standard drink = 0.6 oz pure alcoho l) Sex Assigned at Date Recorded Female 05/26/2019 14:58 EST documented as of this encounter Discharge Diagnoses Diagnosis 782.1 NONSPECIF SKIN ERUPT NEC[ICD-9-CM] 702.19 SEBORRHEIC KERATOSIS NOS[ICD-9-CM ] documented in this encounter Ordered Prescriptions Prescription Sig Dispensed Refills Start Date End Date metroNIDAZOLE Use a thin layer to 45 g 11 10/17/2014 (METROCREAM) 0.75 % cream affected areas after washing Azelaic Acid (FINACEA) 15 Small amount nightly 30 g 11 10/17/2014 10/17/2015 % gelIndications: Rosacea minocycline (DYNACIN) 50 Take 1 Tab by mouth 30 Tab 4 11/16/2014 mg tabletIndications: daily as needed for Rosacea up to 30 days (rosacea flare) documented in this encounter Progress Notes Lauro Johnson MD - 10/18/2014 1034 EDT Dermatology Outpatient Visit Note Chief Complaint Patient presents with ??? Skin Exam lesion about lip ??? Basal Cell Carcinoma L forehead, L jewish, L thigh, chin X 2 Dermatologic History: 1. History of multiple basal cell carcinomas including keller , forehead, thigh ,jewish and eyelid 2. Rosacea 3. Seborrheic keratoses Last Dermatology office visit: 09/05/2013 SUBJECTIVE Ms. Rojo is a 74 y.o. female who presents for follow up for skin check. She has not noticed any new lesions of concerns. She complains that her current regimen has not done as well at keeping her rosacea under control. Currently using minocycline prn, and topical azelaic acid daily. She is good about using sun screen and sun protection. She expressed interest at having some of her numerousseborrheic keratoses removed Review of Systems Constitutional: Negative for fever, [...] visit. Ms. Rojo is healthy, thin, cooperative, alert and smiling female sitting on the examination table with [...] There were no lesions suspicious for malignancy. Multiple well healed barely perceptible scars on Keller , jewish , forehead, thigh abnd eyelid Trunk: wall to wall stuck on keratotic light brown papules Face: central face 5 2-3 mm inflammatory acneform papules ASSESSMENT 1. History of multiple BCC, none present today, no evidence of recurrence 2. Rosacea, more persistent 3. Seborrheic keratoses, numerous PLAN 1. Reassurance given no evidence of new skin cancers or pre-cancers 2. For the rosacea will add Metrocream topically once a day and finacea once a day. She will continue use her minocycline on a prn basis 3. Metrocream 0.75% topically once or twice a day ,45 grams 6 refills 4. Discussed treatment options for seborrheic keratosis. She would like to make a separate appointment to have this done This would be a cosmetic procedure. I quoted her that it would cost about 200 dollars for removal of up to 15 She will f/u as planned or in the interim should problems arise. Lauro Johnson MD 10/18/2014 10:34 Gilma Jeffery - 10/17/2014 0100 EDT Review of Systems Constitutional: Negative for [...] sleep disturbance. The patient is not nervous/anxious. Gilma Aguila 10/17/2014 13:16 documented in this encounter Plan of Treatment Not on filedocumented as of this encounter Visit Diagnoses Diagnosis Seborrheic keratosis - Primary Other seborrheic keratosis Rosacea History of basal cell cancer Personal history of other malignant neop lasm of skin documented in this encounter Discontinued Medications Medication Sig Discontinue Reason Start Date End Date minocycline (DYNACIN) 50 Take 1 Tab by mouth Reorder 3 10/17/2014 mg tabletIndications: daily as needed Rosacea (rosacea flare). Azelaic Acid (FINACEA) Small amount nightly Reorder 02/16/2013 10/17/2014 15 % GelIndications: Rosacea documented as of this encounter Historical Medications This list may reflect changes made after this encounter. Medication Sig Dispensed Refills Start Date End Date VITAMIN K2 ORAL Take by mouth 0 added in this encounter Care Teams Eyeglass Lens Cutter Relationship Specialty Start Date End Date Alea Esqueda MD PCP - General 05/11/14 02/22/[address] [place] [address] documented as of this encounter
--- OUTSIDE RECORDS SUMMARY | 2022-02-07 00:23 | XMS_ITS | Encounter Summary ---
:[address] [facility] Address [address] [place] [address] Care Team Providers Name Role Phone Sylvester Turcios MD Primary Care Provider [phone] Reason for Referral (Routine/Next Available) - Closed Specialty Diagnoses / Procedures Referred By Contact Refer red To Contact Diagnoses Osteoporosis, unspecified Sylvester Turcios MD Procedures DXA-DUAL XRAY ABSORPTIOMETRY FOR BONE DENSITY [address] [place] [address] Referral ID Status Reason Start Date Expiration Date Visits Requ ested Visits Authorized [id number] Closed 05/10/2013 1 1 Encounter Details Date Type Department Care Team Description 05/06/2013 Orders Only [facility] Kar[facility]ina Osteoporo sis, Osteoporosis - Main MD Sylvester unspecified (Primary [place] [address] MEDICAL Dx) [address] [place] [address] [place], [place] [address] Social History Tobacco Use Types Packs/Day Years Used Date Former Smoker 1 4 Quit: 06/22/18 68 Alcohol Use Standard Drinks/Week Comments No 0 (1 standard drink = 0.6 oz pure alcoho l) Sex Assigned at Date Recorded Female 05/26/2019 14:58 EST documented as of this encounter Plan of Treatment Not on filedocumented as of this encounter Results DXA-DUAL XRAY ABSORPTIOMETRY FOR BONE DENSITY (05/17/2013 9:58 EST) Pathologist Sig nature DEXA Bone Density [facility] DEXA Bone Density, [facility] CARE Anatomical Region Laterality Modality Other Specimen Narrative This result has an attachment that is no t available. Performing Organization Address City/State/ZIP Code Phon e Number [facility] documented in this encounter Visit Diagnoses Diagnosis Osteoporosis, unspecified - Primary documented in this encounter Care Teams Final Rail Cutter Relationship Specialty Start Date End Date Sylvester Turcios MD PCP - General 04/27/09 05/10/[address] [place] [address] documented as of this encounter
--- OUTSIDE RECORDS SUMMARY | 2022-02-07 00:23 | XMS_ITS | Encounter Summary ---
:1940 Author Organization [facility] Address [address] [place] [address] Care Team Providers Name Role Phone Sylvester Turcios MD Primary Care Provider Reason for Visit Reason Comments Annual Exam skin check, SK's on back Encounter Details Date Type Department Care Team Description 03/06/2010 Office Visit [facility] Lauro Bowman Personal history of other malignant neoplasm of skin; Dermatology - Ethan Curire MD Inflamed seborrheic keratosis [id number] [place] [address] [facility] [address] [place] [address] (Wo rk) Social History Tobacco Use Types Packs/Day Years Used Date Former Smoker Alcohol Use Standard Drinks/Week Comments No 0 (1 standard drink = 0.6 oz pure alcoho l) Sex Assigned at Date Recorded Female 05/26/2019 14:58 EST documented as of this encounter Patient Instructions Patient InstructionsLauro Bowman MD - 03/06/2010 11:48 EDT DERMATOLOGY ??? WOUND CARE INSTRUCTIONS The [...] brief. DISCOMFORT: Postoperative pain is usually minimal. Extra-Strength Tylenol, two tablets every four hours, usually relives any pain you may have. Do not [...] immediately or . documented in this encounter Progress Notes Lauro Bowman MD - 03/14/2010 6364 EDT DIVISION OF DERMATOLOGY PROGRESS/FOLLOWUP NOTE - 03/06/2010 PROBLEM: History of multiple skin cancers including basal cell carcinomas on the chin and left upperlid, status post Mohs micrographic surgery. SUBJECTIVE: This is a followup visit for this 69-year-old white female, last seen in dermatology clinic on 11/27/2009. She returns today for general skin exam. She has not noticed any new spots. She doeshave several lesions that are bothering her today on her back, on her breasts and on her abdomen. Some of the lesions on her back interfere with physical therapy and on her breasts are irritated by herbra. Otherwise, she has recently broken her toe and is recovering from that. Otherwise no interim health status change, she feels well today and has no other constitutional complaints. OBJECTIVE: Pleasant, healthy-appearing white female in no apparent distress. The scalp, face, neck, back, chest, abdomen, intertriginous areas and extremities are all examined. She has numerous stuck-on waxy papules and plaques across the back, chest and abdomen. Approximately 6 of these are irritated, 3 on the lower back, 2 on the upper back, 1 on the breast and 1 on the abdomen. Of all of her Mohs micrographic surgery sites are well healed with no signs of recurrence. There are no new precancerousor cancerous lesions seen today. Scalp is without erythema, scaling or other secondary changes. ASSESSMENT: 1. Multiple irritated seborrheic keratoses numbering 6 today, back, abdomen and breasts. 2. History of multiple basal cell carcinomas chin x3, left thigh and left lid. No signs of recurrence. PLAN: 1. Discussion of all the above diagnoses with the patient. Reassurance given that I saw no evidence of any precancerous or cancerous lesions. Six of the irritated seborrheic keratoses were treated withliquid nitrogen cryotherapy with a 20 second freeze-thaw x2. Expected results and wound care reviewed. The expected reaction and healing course were discussed, as well as the possibility of incomplete resolution and/or permanent dyspigmentation. 2. Follow up here in 1 year or sooner should she note any new lesions of concern. 3. The importance of sunscreen use, sun avoidance and self-examination was discussed. Electronically Signed by Lauro Bowman MD 03/14/2010 16:23 Lauro Bowman MD - Lauro Bowman MD - Job ID: SM Doc ID: [id number] Ext Doc ID: [id number] cc: Sylvester Turcios MD Lauor Monterroso MD - 03/06/2010 1146 EDT This office note has been dictated. LAURO BOWMAN MD 03/06/2010 11:46 nanny babysitter Ngozi Valdez - 03/06/2010 1126 EDT A complete 12 point review of systems was obtained and reviewed. All systems are negative Ngozi Lubin 03/06/2010 11:26 LAURO BOWMAN MD documented in this encounter Plan of Treatment Not on filedocumented as of this encounter Visit Diagnoses Diagnosis Personal history of other malignant neop lasm of skin Inflamed seborrheic keratosis documented in this encounter Historical Medications This list may reflect changes made after this encounter. Medication Sig Dispensed Refills Start Date End Date IBUPROFEN ORAL Take by mouth as needed. 0 010 added in this encounter Care Teams Patient Safety Sitter Relationship Specialty Start Date End Date Sylvester Turcios MD PCP - General 04/27/09 05/10/[address] [place] [phone] documented as of this encounter
--- OUTSIDE RECORDS SUMMARY | 2022-02-07 00:23 | XMS_ITS | Encounter Summary ---
:1940 Author Organization [facility] Address [address] [place] [address] Care Team Providers Name Role Phone Sylvester Turcios MD Primary Care Provider [phone] Encounter Details Date Type Department Care Team Description 02/08/2013 Results Only Imaging [facility]- KAYLA Turcios MD [phone] [place] [address] (Wo rk) Social History Tobacco Use Types [...] Associated Diagnosis Comme nts MA MAMMO SCREENING 05/10/2013 11:05 Resul ts for this DIGITAL EST procedure are i n the results section. documented in this encounter Results MA MAMMO SCREENING DIGITAL (05/10/2013 11:05 EST) Anatomical Region Laterality Modality Other Specimen Narrative [facility] - 05/11/2013 12:05 EST Comparison has been made to previous images. Bilateral Breast Findings: (Routine digi nesha views with CAD) The breasts are heterogeneously dense (5 1% - 75% fibroglandular). This may lower the sensitivity of mammog annie. No significant masses, calcifications or other abnormalities ar e seen. IMPRESSION: BILATERAL BREASTS: Negative, no evidence of malignancy. Normal interval follow-up is recommended in 12 months. OVERALL ASSESSMENT - CATEGORY 1 - NEGATI VE END OF IMPRESSION These results will be communicated to yo ur patient via a lay letter from Radiology. If any additional imagin g is needed we will contact your patient directly. Procedure Note 05/11/2013 Comparison has been made to previous danielle ges. Bilateral Breast Findings: (Routine digi nesha views with CAD) The breasts are heterogeneously dense (5 1% - 75% fibroglandular). This may lower the sensitivity of mammog annie. No significant masses, calcifications or other abnormalities ar e seen. IMPRESSION: BILATERAL BREASTS: Negative, no evidence [...] Address City/State/ZIP Code Phon e Number [facility] documented in this encounter Visit Diagnoses Not on filedocumented in this encounter Care Teams Gear Generator Set Up Operator Relationship Specialty Start Date End Date Sylvester Turcios MD PCP - General 04/27/09 05/10/[address] [place] [phone] documented as of this encounter
--- OUTSIDE RECORDS SUMMARY | 2022-02-07 00:23 | XMS_ITS | Encounter Summary ---
:1940 Author Organization [facility] Address [address] [place] [address] Care Team Providers Name Role Phone Sylvester Villarreal MD Primary Care Provider [phone] Encounter Details Date Type Department Care Team Description 04/22/2006 Results Only [facility] - Leah Wheeler, conversion PA-C [address] [facility] [address] [place] [address] ,[address] [place], [place] [address] (Wo rk) Social History Tobacco Use Types Packs/Day Years Used Date Never Assessed Sex Assigned at Date Recorded Female 05/26/2019 14:58 EST documented as of this encounter Plan of Treatment Not on filedocumented as of this encounter Procedures Procedure Name Priority Date/Time Associated Diagnosis Comme nts SURGICAL PATHOLOGY Routine 04/22/2006 0:00 EST Re sults for this procedure are i n the results section. documented in this encounter Results SURGICAL PATHOLOGY (04/22/2006 0:00 EST) Pathology Report: SURGICAL PATHOLOGY REPORT TIFFANIE ASHBY Reports generated via electronic interface contain sharmila ginal data; LAB however they are lacking the format of the original re port. Caution should be taken when reading/interpreting unfo rmatted reports. Name: ? FEDE ROJO ? Accession #: ? [id number] ? : ? 1940 (Age: 65) ??F ? Collect Date: ? 04/22/2006 ? Location: ? [facility] ? Receive Date: ? 006 ? Provider: LEAH SOTO Copy to: SYLVESTER VILLARREAL MD ? Final Pathologic Diagnosis: ? Skin of thigh, left, excision: 1. ?Basal cell carcinoma, superficial mul ticentric type. ? - Margins negative for basal cell carcinoma. ? 2. ?? Epidermal repar ative change and dermal scar, consistent with biopsy site. Document reviewed and electronically signed by: Eve Davis MD Report ??Date: 04/23/2006 16:43 By the signature above, the attending physician certif ies that he/she has personally conducted a gross and/or microscopic examin ation of the described specimens and rendered or confirmed the above diagnosi s. Specimen(s) Received: ? Skin-elliptical excision, left thigh Clinical History: ? Has 3 mo f/up, check chin. BCC. ([id number]), quintero ture at 12 o'clock Gross Description: ? Received in formalin labelled Szely and left thigh is an oriented skin ellipse with a suture at the 12 o'clock aspect as per the surgical pathology requisition form. ??The spec imen measures 1.5 cm from 12-6 o'clock, 0.9 cm from 9-3 o'clock, and 0.2 cm in thickness. ??The cutaneous surface is william with a central 0.6 cm in diameter p ink crater consistent with the previous biopsy. ??The 3 o'clock aspect is inked blue, and the 9 o'clock aspect is inked black. ??The specimen is serially sectioned, and entirely submitted as follows: BLOCK MEEHAN A1 ?12 o'clock tip, reverse en face A2, A3 ?Central sections A4 ?6 o'clock tip, reverse en face (Dr. Burnette-AF)/mpl End of Report Specimen Performing Organization Address City/State/ZIP Code Phon e Number [facility] [address] [place] [address] [facility] [address] [place] [address] documented in this encounter Visit Diagnoses Not on filedocumented in this encounter Care Teams Comic Artist Relationship Specialty Start Date End Date Sylvester Villarreal MD PCP - General 04/27/09 05/10/[address] [place] [phone] documented as of this encounter
--- OUTSIDE RECORDS SUMMARY | 2022-02-07 00:23 | XMS_ITS | Encounter Summary ---
:1940 Author Organization [facility] Address [address] [place] [address] Care Team Providers Name Role Phone Sylvester Turcios MD Primary Care Provider [phone] Encounter Details Date Type Department Care Team Description 05/01/[address] [facility] Sylvester Turcios, [address] [place] [address] (Wo rk) Social History Tobacco Use Types Packs/Day Years Used Date Never Assessed Sex Assigned at Date Recorded Female 05/26/2019 14:58 EST documented as of this encounter Plan of Treatment Not on filedocumented as of this encounter Procedures Procedure Name Priority Date/Time Associated Diagnosis Comme nts MA MAMMO SCREENING 05/01/2009 11:19 Resul ts for this DIGITAL EST procedure are i n the results section. documented in this encounter Results MA MAMMO SCREENING DIGITAL (05/01/2009 11:19 EST) Anatomical Region Laterality Modality Other Specimen Narrative [facility] - 05/04/2009 16:01 EST Comparison is made to films from 008 (bilateral) and films from 03/18/2007 (bilateral) and films fr om 03/17/2006 (bilateral) and films from 01/10/2005 (bilateral) and fi lms from 01/10/2004 and films from 12/08/2002. Bilateral [...] (Category 0) at this time. Procedure Note 05/04/2009 Comparison is made to films from 008 (bilateral) and films from 03/18/2007 (bilateral) and films fr om 03/17/2006 (bilateral) and films from 01/10/2005 (bilateral) and fi lms from 01/10/2004 and films from 12/08/2002. Bilateral [...] Organization Address City/State/ZIP Code Phon e Number [facility] documented in this encounter Visit Diagnoses Not on filedocumented in this encounter Care Teams Research And Development Chemist Relationship Specialty Start Date End Date Sylvester Turcios MD PCP - General 04/27/09 05/10/[address] [place] [phone] documented as of this encounter
--- OUTSIDE RECORDS SUMMARY | 2022-02-07 00:23 | XMS_ITS | Encounter Summary ---
:1940 Author Organization [facility] Address [address] [place] [address] Care Team Providers Name Role Phone Sylvester Turcios MD Primary Care Provider [phone] Reason for Visit Reason Comments Osteoporosis Encounter Details Date Type Department Care Team Description 05/10/2013 Office Visit [facility] Bogdan Barlow MD Ost eoporosis, unspecified (Primary Dx); Osteoporosis - Main Suresh Traore MD History of bisphosphonate therapy [place] [address] [place] [phone] Social History Tobacco Use Types Packs/Day Years [...] - Inhaled Oxygen Concentration - - Weight 50.3 kg (111 lb) 05/10/2013 1333 EST Height 164.1 cm (5' 4.61) 05/10/2013 1333 EST Body Mass Index 18.7 05/10/2013 1333 EST documented in this encounter Discharge Diagnoses Diagnosis 733.00 OSTEOPOROSIS NOS[ICD-9-CM] documented in this encounter Progress Notes Rena Estrada - 05/10/2013 1358 EST Procedure Date: 05/10/2013 Referring Physician: Sylvester Turcios,* Previous Scan Date: 10/17/2010 ABN Necessary: No Ht 164.1 cm (64.61) Wt 50.349 kg (111 lb) BMI 18.7 kg/m2 Done AP SPINE yes FEMUR yes TOTAL BODY FOREARM LVA/VFA HEEL US PATIENT HISTORY: Patient Active Problem List Diagnosis ??? History of basal cell carcinoma Past Medical History Diagnosis Date ??? Varicella ??? Alopecia ??? Rosacea ??? Actinic keratosis ??? Basal cell carcinoma CHIN, left upper lid ??? Basal cell carcinoma 09/30/05 left quaker ??? Basal cell carcinoma 03/17/06 left thigh ??? Basal cell carcinoma 06/30/06 chin ??? Basal cell carcinoma 05/01/09 chin ??? Broken toe left 5th toe ??? Raynaud's disease Additional Comments: Previous/Prior Comparison? Yes Pharmacologic? No Osteoporosis Center Patient Information Ethnicity/Race: Nutrition and Exercise: Do you or have you smoked in the last 6 months? No Do you consume dairy? Yes Number of servings per day? 2 Do you take calcium supplements? Yes Amount? 1,000 mg daily Do you drink 3 or more alcoholic beverages daily? No Have you now or have you had in the past an eating disorder? No Family History: Did your mother or father have a hip fracture? YES (Mom - fall) Do you have a parent or sibling who suffered a broken hip, shoulder, wrist or ribs after age 45? YES Patient History-Medications: Have you taken any of the following medications or treatments. (Now or in the past)? Steroid (prednisone, cortisone, Medrol) 5mg. or more for at least 3 months? No Thyroid medication for thyroid cancer suppression? No Anticonvulsants (phenytoin, Dilantin, phenobarbital) No GnRH Agonist (for endometriosis or prostate cancer, Example - Lupron) No Depo Povera (Current use) No Aromatase inhibitor: Letrozol (Femera), Anastrozole (arimidex), No Exemestane (Aromasin) TZD's for diabetes (Actos, Avandia) No Medical History: Have you had any of the following? Hyperthyroidism (over active thyroid) No Hyperparathyroidism (over active parathyroid, high blood calcium) No Kidney failure No Rheumatoid arthritis No Seizure disorder (epilepsy) No Diabetes mellitus No Bariatric surgery/Gastric bypass No Fractures after age 40 No Area: Treatments: Alendronate (Fosamax) Past use X 3 yrs - stopped 10 yrs ago Calcitonin (Miacalcin) Never Denosumab (Prolia) Never Ibandronate (Boniva) Never Pamidronate (Aredia) Never Raloxifene (Evista) Never Risendronate (Actonel) Never Teriparatide (Forteo) Never Zoledronic Acid (Reclast, Zomata) Never Other: For Women Only: What was your age at menopause? 54 Are you taking estrongen now or within the past year? No Have you been treated for breast cancer? No Rena Estrada 05/10/2013 13:58 documented in this encounter Plan of Treatment Not on filedocumented as of this encounter Procedures Procedure Name Priority Date/Time Associated Diagnosis Comme nts DXA DUAL XRAY Routine 05/17/2013 9:58 EST Osteoporosis, ABSORPTIOMETRY FOR BONE unspecified DENSITY ([facility] PERFORMED) documented in this encounter Results DXA-DUAL XRAY ABSORPTIOMETRY FOR BONE DENSITY (05/17/2013 9:58 EST) Pathologist Sig nature DEXA Bone Density [facility] DEXA Bone Density, [facility] CARE Anatomical Region Laterality Modality Other Specimen Narrative This result has an attachment that is no t available. Performing Organization Address City/State/ZIP Code Phon e Number [facility] documented in this encounter Visit Diagnoses Diagnosis Osteoporosis, unspecified - Primary History of bisphosphonate therapy Personal history of other drug therapy documented in this encounter Care Teams Machine Rope Maker Relationship Specialty Start Date End Date Sylvester Turcios MD PCP - General 04/27/09 05/10/[address] [place] [phone] documented as of this encounter
--- OUTSIDE RECORDS SUMMARY | 2022-02-07 00:23 | XMS_ITS | Encounter Summary ---
:1940 Author Organization [facility] Address [address] [place] [address] Care Team Providers Name Role Phone Sylvester Turcios MD Primary Care Provider [phone] Encounter Details Date Type Department Care Team Description 09/30/2005 Before [facility] - Lizzette Solares Converted Visit [facility] [address] [facility] [address] [place] [address] ,[address] [place] [address] (Wo rk) Social History Tobacco Use Types Packs/Day Years Used Date Never Assessed Sex Assigned at Date Recorded Female 05/26/2019 14:58 EST documented as of this encounter Progress Notes Blanca Solares - 06/15/2009 0653 EST DIVISION OF DERMATOLOGY PROGRESS/FOLLOWUP NOTE - 09/30/2005 Brooke is seen in follow up today for re-evaluation of previously treated actinic keratoses at the left taoism and right upper cutaneous lip. She had a vigorous reaction and treated these in June. She also treated a spot on the right mid cheek that also reacted quite vigorously. She has persistent roughness at the heidi border along the midline and also has a pink bump at the left taoism. Shethinks that looks similarly to her basal cells which were located on the medialcheeks / chin bilaterally. Regarding the spot at the left taoism, this had ulcerated and got much smaller after treating with Carac. Clinically at her last visit she did have a 1 cm diameter, pink scaly patch adjacent to that. That was actinic keratosis. Patient denies any other complaints referable to the skin, constitutional symptoms today, or interimhealth status change. She continues to live in [place] and does not have a primary care physician. She sees Stephanie Back M.D., for her COMPUTER TECHNOLOGY TEACHER care. OBJECTIVE: She appears well. At the left taoism is a 5 mm diameter, slightly irregularly shaped, pink, slightly blanchable, thin, dome-shaped papule with telangiectasia but no pearliness present. The rest of the taoism is smooth. The right upper cutaneous lip is essentially smooth without any residualactinic keratoses. However, at the filtrum at the heidi border slightly to the right is a 2 x 3mm diameter, pink, gritty papule. The remainder of the exam is unremarkable. ASSESSMENT: 1. Papule, not yet diagnosed, left taoism. Slightly suspicious for basal cell carcinoma. 2. Actinic keratoses, filtrum / heidi border 3. History of basal cell carcinoma x2 on the face without evidence of recurrence at the site. PLAN: 1. Impression discussed and questions answered. After patient consent, a biopsy by shave technique was performed for the papule at the left taoism. Please see consent form and procedure note. Wound instructions and Vaseline samples given. Will plan a follow up as appropriate per biopsy results as needed. 2. For the actinic keratoses at the heidi border / filtrum, she will use Carac cream at bedtimex2 to 3 weeks. She does not need a refill at this time. 3. Follow up in six months for total skin check or sooner as needed in the interim. Patient agreed. Signed by Tsering Graham MD 10/09/2005 17:24 Reviewed by Lizzette Solares PA-C 10/08/2005 09:27 Nael Bautista PA-CAnita L Licata, MD Dictated by: Lizzette Solares PA-C MD Johnine Chamberlain: 09/30/2005 - Lizzette Solares PA-C P - ds Job ID: [id number] Document ID: [id number] cc: documented in this encounter Plan of Treatment Not on filedocumented as of this encounter Visit Diagnoses Not on filedocumented in this encounter Care Teams Aerophysics Engineer Relationship Specialty Start Date End Date Sylvester Turcios MD PCP - General 04/27/09 05/10/[address] [place] [phone] documented as of this encounter
--- OUTSIDE RECORDS SUMMARY | 2022-02-07 00:23 | XMS_ITS | Encounter Summary ---
:1940 Author Organization [facility] Address [address] [place] [address] Care Team Providers Name Role Phone Sylvester Turcios MD Primary Care Provider [phone] Encounter Details Date Type Department Care Team Description 05/07/2012 [facility]vester [address] [place] [address] [address],[facility] [place], [place] [address] (Wo rk) Social History Tobacco [...] Code Departure Means Destination Home or Self Jail documented in this encounter Plan of Treatment Not on filedocumented as of this encounter Visit Diagnoses Not on filedocumented in this encounter Care Teams Cardiac Nurse Relationship Specialty Start Date End Date Sylvester Turcios MD PCP - General 04/27/09 05/10/[address] [place] [phone] documented as of this encounter
--- OUTSIDE RECORDS SUMMARY | 2022-02-07 00:23 | XMS_ITS | Encounter Summary ---
:1940 Author Organization [facility] Address [address] [place] [address] Care Team Providers Name Role Phone Sylvester Turcios MD Primary Care Provider [phone] Encounter Details Date Type Department Care Team Description 05/06/2011 Hospital Encounter [facility] MD Sylvester [address],[facility] [place], [place] [address] (Wo rk) Social History Tobacco Use Types Packs/Day Years Used Date Former Smoker Alcohol Use Standard Drinks/Week Comments No 0 (1 standard drink = 0.6 oz pure alcoho l) Sex Assigned at Date Recorded Female 05/26/2019 14:58 EST documented as of this encounter Medications at Time of Discharge Medication Sig Dispensed Refills Start Date End Date CALCIUM CARBONATE Take 1 Tab by mouth 0 (CALCIUM 600 ORAL) daily. Reported on 11/12/2016 Cholecalciferol, Vitamin Take 500 Units by 0 D3, (VITAMIN D) 1,000 mouth daily. unit Cap IBUPROFEN ORAL Take by mouth as 0 03/06/2010 needed. MULTIVITAMINS Take 1 Tablet by 0 (MULTI-VITAMIN ORAL) mouth daily. Azelaic Acid (FINACEA) 15 Apply topically as 0 12/09/2011 % Gel needed. Cream BIOTIN ORAL Take 3,000 mcg by 0 2013 mouth daily. ibuprofen (ADVIL;MOTRIN) Take 400 mg by mouth 0 08/24/2013 100 mg/5 mL suspension as needed. minocycline (DYNACIN) 50 Take 50 mg by mouth 0 12/09/2011 mg tablet daily as needed. documented as of this encounter Discharge Disposition Disposition Code Departure Means Destination Home or Self [facility] documented in this encounter Plan of Treatment Not on filedocumented as of this encounter Visit Diagnoses Not on filedocumented in this encounter Care Teams Retail Support Associate Relationship Specialty Start Date End Date Sylvester Turcios MD PCP - General 04/27/09 05/10/[address] [place] [phone] documented as of this encounter
--- OUTSIDE RECORDS SUMMARY | 2022-02-07 00:23 | XMS_ITS | Encounter Summary ---
:1940 Author Organization [facility] Address [address] [place] [address] Care Team Providers Name Role Phone Sylvester Turcios MD Primary Care Provider [phone] Encounter Details Date Type Department Care Team Description 03/03/2012 Results Only [facility] KAYLA Turcios MD [phone] [place] [phone] (Wo rk) Social History Tobacco Use Types [...] Associated Diagnosis Comme nts MA MAMMO SCREENING 05/07/2012 11:03 Resul ts for this DIGITAL EST procedure are i n the results section. documented in this encounter Results MA MAMMO SCREENING DIGITAL (05/07/2012 11:03 EST) Anatomical Region Laterality Modality Other Specimen Narrative [facility] - 05/07/2012 15:16 EST Comparison has been made to previous [...] will contact your patient directly. Procedure Note 05/07/2012 Comparison has been made to previous danielle [...] Organization Address City/State/ZIP Code Phon e Number [facility] documented in this encounter Visit Diagnoses Not on filedocumented in this encounter Care Teams Patch Finisher Relationship Specialty Start Date End Date Sylvester Turcios MD PCP - General 04/27/09 05/10/[address] [place] [phone] documented as of this encounter
--- OUTSIDE RECORDS SUMMARY | 2022-02-07 00:23 | XMS_ITS | Encounter Summary ---
:1940 Author Organization [facility] Address [address] [place] [address] Care Team Providers Name Role Phone Unavailable Primary Care Provider Unavailable Encounter Details Date Type Department Care Team Description 03/17/2006 Hospital Encounter [facility] - Deanna Back MD [address],[facility] 111 [facility] [address] [place] [address] [place], [place] [phone] (Wo rk) Social History Tobacco Use Types Packs/Day Years Used Date Never Assessed Sex Assigned at Date Recorded Female 05/26/2019 14:58 EST documented as of this encounter Discharge Disposition Disposition Code Departure Means Destination Auto Discharge documented in this encounter Plan of Treatment Not on filedocumented as of this encounter Procedures Procedure Name Priority Date/Time Associated Comments Diagnosis RAD US BREAST 03/17/2006 13:10 Results fo r this UNILATERAL - ONE EDT procedure a re in BREAST the results section. MA MAMMO SCREENING 03/17/2006 11:09 Resul ts for this DIGITAL EDT procedure are i n the results section. documented in this encounter Results RAD US BREAST UNILATERAL - ONE BREAST (03/17/2006 13:10 EDT) Anatomical Region Laterality Modality Other Specimen Narrative [facility] - 12/30/2008 1: 42 EDT ROUTINE/ 6 MO FU LEFT MASS DATE AND TIME PER PATIENT, PAT. HAS ANOTHER EXAM AT 14:00 IN DERM. BILATERAL MAMMOGRAM AND SIX MONTH FOLLOW UP ULTRASOUND LEFT BREAST 03/17/06 The exam was interpreted with the aid of CAD. The breasts are heterogeneously dense. ??There are no ne w dominant masses, suspicious calcifications or areas of architectural distortion in either breast. The faint nodular opacity just anterior to the macrocalcification in the medial breast is again identified an d is unchanged as previously described. LEFT BREAST ULTRASOUND: The benign appea ring lobulated hypoechoic nodule at 9 o'clock 2.5cm out from the l eft nipple measuring about 4x9mm is also unchanged. 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 It is not viewed with a high degree of concern and given its sta bility, I would not recommend that it be biopsied. The adjacent macroc alcification associated with posterior acoustic shadowing is again no analy as well. IMPRESSION LEFT BREAST: BI-RADS CATEGORY 3, LIKELY BENIGN. RECOMMENDATION LEFT BREAST: One addition al six month followup ultrasound of the 9 o'clock nodule to en sure stability over one year. The patient can revert to routine bilate ral screening mammography with the next suggested bilateral exam i n February of 2007. The results and recommendations were dis cussed with the patient by the day care supervisor. D: ??03/17/06 T: ??03/18/06 /vivian Procedure Note Surya Lang MD - 12/30/2008 ROUTINE/ 6 MO FU LEFT MASS DATE AND TIME PER PATIENT, PAT. HAS ANOTHER EXAM AT 14:00 IN DERM. BILATERAL MAMMOGRAM AND SIX MONTH FOLLOW UP ULTRASOUND LEFT BREAST 03/17/06 The exam was interpreted with the aid of CAD. The breasts are heterogeneously dense. There are no new dominant masses, suspicious calcifications or areas of architectural distortion in either breast. The faint nodular opacity just anterior to the macrocalcification in the medial breast is again identified an d is unchanged as previously described. LEFT BREAST ULTRASOUND: The benign appea ring lobulated hypoechoic nodule at 9 o'clock 2.5cm out from the l eft nipple measuring about 4x9mm is also unchanged. 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 It is not viewed with a high degree of concern and given its sta bility, I would not recommend that it be biopsied. The adjacent macroc alcification associated with posterior acoustic shadowing is again no analy as well. IMPRESSION LEFT BREAST: BI-RADS CATEGORY 3, LIKELY BENIGN. RECOMMENDATION LEFT BREAST: One addition al six month followup ultrasound of the 9 o'clock nodule to en sure stability over one year. The patient can revert to routine bilate ral screening mammography with the next suggested bilateral exam i n February of 2007. The results and recommendations were dis cussed with the patient by the day care supervisor. /vivian Performing Organization Address City/State/ZIP Code Phon e Number [facility] [address] [facility] [address] [facility] [address] [place], [place] [address] [place] MAMMO SCREENING DIGITAL (03/17/2006 11:09 EDT) Anatomical Region Laterality Modality Other Specimen Narrative [facility] - 12/30/2008 1: 42 EDT ROUTINE/ 6 MO FU LEFT MASS DATE AND TIME PER PATIENT, PAT. HAS ANOTHER EXAM AT 14:00 IN DERM. BILATERAL MAMMOGRAM AND SIX MONTH FOLLOW UP ULTRASOUND LEFT BREAST 03/17/06 The exam was interpreted with the aid of CAD. The breasts are heterogeneously dense. ??There are no ne w dominant masses, suspicious calcifications or areas of architectural distortion in either breast. The faint nodular opacity just anterior to the macrocalcification in the medial breast is again identified an d is unchanged as previously described. LEFT BREAST ULTRASOUND: The benign appea ring lobulated hypoechoic nodule at 9 o'clock 2.5cm out from the l eft nipple measuring about 4x9mm is also unchanged. 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 It is not viewed with a high degree of concern and given its sta bility, I would not recommend that it be biopsied. The adjacent macroc alcification associated with posterior acoustic shadowing is again no analy as well. IMPRESSION LEFT BREAST: BI-RADS CATEGORY 3, LIKELY BENIGN. RECOMMENDATION LEFT BREAST: One addition al six month followup ultrasound of the 9 o'clock nodule to en sure stability over one year. The patient can revert to routine bilate ral screening mammography with the next suggested bilateral exam i n February of 2007. The results and recommendations were dis cussed with the patient by the day care supervisor. D: ??03/17/06 T: ??03/18/06 /vivian Procedure Note Surya Lang MD - 12/30/2008 ROUTINE/ 6 MO FU LEFT MASS DATE AND TIME PER PATIENT, PAT. HAS ANOTHER EXAM AT 14:00 IN DERM. BILATERAL MAMMOGRAM AND SIX MONTH FOLLOW UP ULTRASOUND LEFT BREAST 03/17/06 The exam was interpreted with the aid of CAD. The breasts are heterogeneously dense. There are no new dominant masses, suspicious calcifications or areas of architectural distortion in either breast. The faint nodular opacity just anterior to the macrocalcification in the medial breast is again identified an d is unchanged as previously described. LEFT BREAST ULTRASOUND: The benign appea ring lobulated hypoechoic nodule at 9 o'clock 2.5cm out from the l eft nipple measuring about 4x9mm is also unchanged. 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 It is not viewed with a high degree of concern and given its sta bility, I would not recommend that it be biopsied. The adjacent macroc alcification associated with posterior acoustic shadowing is again no analy as well. IMPRESSION LEFT BREAST: BI-RADS CATEGORY 3, LIKELY BENIGN. RECOMMENDATION LEFT BREAST: One addition al six month followup ultrasound of the 9 o'clock nodule to en sure stability over one year. The patient can revert to routine bilate ral screening mammography with the next suggested bilateral exam i n February of 2007. The results and recommendations were dis cussed with the patient by the day care supervisor. /vivian Performing Organization Address City/State/ZIP Code Phon e Number [facility] [address] [facility] [address] [facility] [address] [place], [place] [address] documented in this encounter Visit Diagnoses Not on filedocumented in this encounter
--- OUTSIDE RECORDS SUMMARY | 2022-02-07 00:23 | XMS_ITS | Encounter Summary ---
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 female. Chief Complaint Patient presents with ??? Dizziness Sylvester Turcios has requested that I see Brooke Rojo in consultation regarding dizziness andtinnitus. HPI 71yo female with one year history of stable dizzy episodes, with antecedent tinnitus and fullness. The patient states that for the past year she has had dizzy episodes every 2 weeks to one month. Each lasts approximately 30 seconds. She is unsure if she has true vertigo, as she always closes her eyes and sits down when the spells occur. She has kept a detailed log of these occurrences and notes that these episodes are often provoked by leaning forward or frequent eye movements (such as shopping, interstate driving, or scrolling on the computer). However, she notes that she always has a refractoryperiod of at least 10 days between occurrences. She also notes that she has 5-6 seconds before the attack when she is aware that one will occur. During this time, she notes a roaring tinnitus in the right ear and right ear fullness. In fact, she notes that tinnitus gradually worsens in the days leading up to her attack. After the event, she may have some right otalgia or pruritis for up to two days. She also complains of a dripping into her throat after an occurrence. She denies any otorrhea or subjective change in hearing. The patient denies any history of migraines; she did experience headaches after her dizzy spells, but has not had one in months. She denies any allergy symptoms. The patient has been seen by her PCP and neurologist, with a normal MRI scan performed without contrast at [facility] dated 03-31-2011. She has also been seen by a vestibular physical therapist, who was unable to recreate her symptoms. The patient has tried meclizine, but stopped due to rash. Of note, the patient does note a metal bar falling onto her head prior to the onset of symptoms. Patient Active Problem List Diagnoses ??? History of basal cell carcinoma Past Medical History Diagnosis Date ??? Varicella ??? Alopecia ??? Rosacea ??? Actinic keratosis ??? Basal cell carcinoma CHIN, left upper lid ??? Basal cell carcinoma 09/30/05 left congregational ??? Basal cell carcinoma 03/17/06 left thigh ??? Basal cell carcinoma 06/30/06 chin ??? Basal cell carcinoma 05/01/09 chin ??? Broken toe left 5th toe ??? Raynaud's disease Past Surgical History Procedure Date ??? Skin biopsy ??? Tonsillectomy ??? Mohs surgery 06/20/09 Chin (3X) and Forehead ??? Mohs surgery 09/1997 right chin ??? Mohs surgery 07/1999 left upper lid ??? Mohs surgery 10/05/06 chin ??? Mohs surgery 12/24/05 left congregational Family History Problem Relation Age of Onset ??? Hypertension Mother ??? Heart Disease Father ??? Cancer Maternal Aunt ??? Mental Illness Maternal Uncle ??? Early Maternal Grandmother ??? Early Maternal Grandfather ??? Early Paternal Grandmother ??? Early Paternal Grandfather ??? Mental Illness Paternal Grandfather Social History Social History ??? Marital Status: Spouse Name: N/A Number of Children: N/A ??? Years of Education: N/A Occupational History ??? Retired Social History Main Topics ??? Smoking status: Former Smoker -- 1.0 packs/day for 4 years Quit date: 06/22/1965 ??? Smokeless tobacco: Not on file ??? Alcohol Use: No ??? Drug Use: No ??? Sexually Active: Not on file Other Topics Concern ??? Not on file Social History Narrative ??? No narrative on file Outpatient Prescriptions Marked as Taking for the 02/19/12 encounter (Office Visit) with Didier Rees MD Medication Sig Dispense Refill ??? aspirin 81 mg EC tablet Take 81 mg by mouth daily. ??? minocycline (DYNACIN) 50 mg tablet Take 1 Tab by mouth daily as needed. 30 Each 3 ??? Azelaic Acid (FINACEA) 15 % Gel Small amount nightly 1 Tube 11 ??? ASCORBATE CALCIUM (VITAMIN C ORAL) Take by mouth as needed. ??? MAGNESIUM ORAL Take by mouth daily. ??? IBUPROFEN ORAL Take by mouth as needed. ??? MULTIVITAMINS (MULTI-VITAMIN ORAL) Take 1 Tab by mouth daily. ??? CALCIUM CARBONATE (CALCIUM 600 ORAL) Take 1 Tab by mouth daily. ??? Cholecalciferol, Vitamin D3, (VITAMIN D) 1,000 unit Cap Take 1 Tab by mouth daily. ??? ibuprofen (ADVIL;MOTRIN) 100 mg/5 mL suspension Take 400 mg by mouth as needed. ??? BIOTIN ORAL Take 3,000 mcg by mouth daily. Allergies Allergen Reactions ??? Meclizine Hives and Rash Review of Systems Constitutional: Negative for fever, chills, weight loss and malaise/fatigue. HENT: Positive for ear pain. Negative for hearing loss, congestion, sore throat and tinnitus. Eyes: Negative for blurred vision, double vision and photophobia. Respiratory: Negative for cough, hemoptysis, shortness of breath and wheezing. Cardiovascular: Negative for chest pain, palpitations, claudication and leg swelling. Gastrointestinal: Negative for heartburn. Musculoskeletal: Negative for myalgias and joint pain. Skin: Negative for rash. Neurological: Negative for sensory change, focal weakness and headaches. Endo/Heme/Allergies: Negative for environmental allergies. Does not bruise/bleed easily. - See HPI Objective: There were no vitals taken for this visit. Physical Exam CONSTITUTIONAL: VITAL SIGNS: Not reviewed APPEARANCE: The patient appears alert, cooperative, and comfortable. ABILITY TO COMMUNICATE / VOICE: Normal HEAD AND FACE: INSPECTION: Normal without apparent scars, lesions, or masses. PALPATION: There are no masses or sinus tenderness. SALIVARY GLANDS: Submandibular and Parotid glands are normal bilaterally FACIAL STRENGTH: Intact and symmetrical bilaterally EXTERNAL EAR & NOSE: No external ear or nose deformity noted EYES: EYES: normal, no nystagmus, pupils equal, round, reactive to light and extraocular movements intact;Hallpike testing is negative EARS, NOSE, MOUTH AND THROAT: OTOSCOPY: Right external auditory canal: patent and non-inflamed Left external auditory canal: patent and non-inflamed Right tympanic membrane: intact and normally mobile without retraction, perforation or effusion Left tympanic membrane: intact and normally mobile without retraction, perforation or effusion WHISPER/TUNING FORK: Hearing subjectively normal Camacho does not lateralize, Rinne with AC>BC bilaterally, formal audiogram below NOSE: setpum deviated to left, normal turbinates and mucosa LIPS, TEETH & GUMS: normal for age ORAL CAVITY & OROPHARYNX: normal, pink mucosa HYPOPHARYNX & PHARYNGEAL RODRIGUES: Not examined LARYNX: Not examined NASOPHARYNX: Not examined NECK: GENERAL: Supple, no asymmetry or crepitus, trachea midline THYROID: Normal LYMPHATIC: CERVICAL LYMPH NODES: No pathologic cervical lymphadenopathy noted RESPIRATORY: LUNGS: Normal to auscultation CARDIOVASCULAR: CARDIOVASCULAR: Heart in regular rate and rhythm, no murmurs NEUROLOGIC: NEUROLOGIC: Normal mood and affect and Cranial nerves 2 through 12 intact bilaterally; normal heel-toe walking, normal heel walking, normal toe walking, no pronator drift, normal rapid alternating movements AUDIOGRAM: I have reviewed the audiogram performed today by our audiology staff on Brooke Rojo and it demonstrates: On the right, there is a moderate high-frequency sensorineural hearing loss with word recognition score of 100 %. On the left, there is a moderate high-frequency sensorineural hearing loss with word recognition score of 96 %. Assessment: 71yo female with one year of brief , dizzy spells, preceded by aural fullness and tinnitus. While this is certainly not a classic presentation, it may represent an atypical Meniere's disease. Plan: We have discussed potential therapies, including: diuresis, short-term steroid burst, endolymphatic sac decompression, and vestibular nerve section. We have recommended that the patient discuss a course of HCTZ 25 mg daily or Dyazide once a day withher PCP. We have also discussed avoidance of caffeine, alcohol, and low-salt diet. If this therapy is effective, we would typically attempt a one year trial. Following this, discontinue Dyazide and assess for further need - with return of symptoms. The patient will return to clinic PRN. Mo Robles MD Otolaryngology, Head and Neck Surgery 02/19/2012 15:44 The patient was seen, examined, and discussed with Dr. Robles. I agree with the above findings and plan of care. The patients dizzy spells are quite brief lasting only seconds at a time, however, she has noted preceding sensation of right ear fullness and tinnitus leading up to the episode of dizziness. Didier Rees MD 02/20/2012 14:53 CC: Sylvester Turcios MD documented in this encounter Procedure Notes FINISH SANDER, SCAN 2 - 03/04/2012 1216 EDTAssociated Order(s): PROCEDURE REPORTS - SCANNED documented in this encounter Plan of Treatment Not on filedocumented as of this encounter Procedures Procedure Name Priority Date/Time Associated Diagnosis Comme nts PROCEDURE REPORTS - 03/04/2012 12:16 Resu lts for this SCANNED EDT procedure are i n the results section. 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
--- OUTSIDE RECORDS SUMMARY | 2022-02-07 00:23 | XMS_ITS | Encounter Summary ---
:1940 Author Organization [facility] Address [address] [place] [address] Care Team Providers Name Role Phone Unavailable Primary Care Provider Unavailable Encounter Details Date Type Department Care Team Description 03/23/2008 Hospital Encounter [facility] MD Sylvester [address] [address] [address],[facility] [place], [place] [address] (Wo rk) Social History Tobacco [...] Associated Diagnosis Comme nts MA MAMMO SCREENING 03/23/2008 9:57 EDT Re sults for this DIGITAL procedure are i n the results section. documented in this encounter Results MA MAMMO SCREENING DIGITAL (03/23/2008 9:57 EDT) Anatomical Region Laterality Modality Other Specimen Narrative [facility] - 11/06/2008 9: 56 EDT SCREENING Comparison is made to films from 007 (bilateral) and films from 03/17/2006 (bilateral) and films fr om 01/10/2005 (bilateral) and films from 01/10/2004 and films from . Left Breast Findings: (CAD used to inter pret routine digital): The breast is heterogeneously dense. Thi s may lower the sensitivity of mammography. Stable amorphous calcifi cations are present in the upper breast on the MLO view. Right Breast Findings: (CAD used to inte rpret routine digital): The breast is heterogeneously dense. Thi s may lower the sensitivity of mammography. No significant masses, c alcifications or other abnormalities are seen. IMPRESSION: LEFT BREAST - CATEGORY 2 Benign, no evidence of malignancy. Maddie l interval follow-up is recommended in 12 months. RIGHT BREAST - CATEGORY 1 Negative, no evidence of malignancy. Nor mal interval follow-up is recommended in 12 months. OVERALL ASSESSMENT - BENIGN END OF IMPRESSION The patient will be notified of her/his breast imaging results via a lay letter from Radiology. ??Radiology w ill contact the patient directly regarding any findings which re quire additional imaging (Category 0) at this time. Procedure Note Naz Treviño MD - 11/06/2008 SCREENING Comparison is made to films from 007 (bilateral) and films from 03/17/2006 (bilateral) and films fr om 01/10/2005 (bilateral) and films from 01/10/2004 and films from . Left Breast Findings: (CAD used to inter pret routine digital): The breast is heterogeneously dense. Thi s may lower the sensitivity of mammography. Stable amorphous calcifi cations are present in the upper breast on the MLO view. Right Breast Findings: (CAD used to inte rpret routine digital): The breast is heterogeneously dense. Thi s may lower the sensitivity of mammography. No significant masses, c alcifications or other abnormalities are seen. IMPRESSION: LEFT BREAST - CATEGORY 2 Benign, no evidence of malignancy. Maddie l interval follow-up is recommended in 12 months. RIGHT BREAST - CATEGORY 1 Negative, no evidence of malignancy. Nor mal interval follow-up is recommended in 12 months. OVERALL ASSESSMENT - BENIGN END OF IMPRESSION The patient will be notified of her/his breast imaging results via a lay letter from Radiology. Radiology kimberli l contact the patient directly regarding any findings which re quire additional imaging (Category 0) at this time. Performing Organization Address City/State/ZIP Code Phon e Number [facility] [address] [facility] [address] [facility] [address] [place], [place] [address] documented in this encounter Visit Diagnoses Not on filedocumented in this encounter
--- OUTSIDE RECORDS SUMMARY | 2022-02-07 00:23 | XMS_ITS | Encounter Summary ---
:1940 Author Organization [facility] Address [address] [place] [address] Care Team Providers Name Role Phone Sylvester Turcios MD Primary Care Provider [phone] Encounter Details Date Type Department Care Team Description 05/01/2009 [facility] Sylvester [id number] [place] [address],[facility] [place], [place] [address] (Wo rk) Social History Tobacco Use Types Packs/Day Years Used Date Never Assessed Sex Assigned at Date Recorded Female 05/26/2019 14:58 EST documented as of this encounter Discharge Disposition Disposition Code Departure Means Destination Auto Discharge Home documented in this encounter Plan of Treatment Not on filedocumented as of this encounter Visit Diagnoses Not on filedocumented in this encounter 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
--- OUTSIDE RECORDS SUMMARY | 2022-02-07 00:23 | XMS_ITS | Encounter Summary ---
:1940 Author Organization [facility] Address [address] [place] [address] Care Team Providers Name Role Phone Sylvester Turcios MD Primary Care Provider [phone] Reason for Visit Reason Comments Menopause Osteopenia Encounter Details Date Type Department Care Team Description 10/17/2010 Office Visit [facility] Bogdan Barlow MD Men opause; Osteoporosis - Main Suresh Traore MD Unspecified osteoporosis [place] [address] [place] [id number] Social History Tobacco Use Types Packs/Day Years Used Date Former Smoker Alcohol Use Standard Drinks/Week Comments No 0 (1 standard drink = 0.6 oz pure alcoho l) Sex Assigned at Date Recorded Female 05/26/2019 14:58 EST documented as of this encounter Progress Notes Stephanie Ling - 10/17/2010 1203 EDT Procedure Date: 10/17/2010 Referring Physician: Stephanie Back Previous Scan Date: ABN Necessary: No There were no vitals taken for this visit. Done AP SPINE yes FEMUR yes TOTAL BODY FOREARM LVA/VFA HEEL US PATIENT HISTORY: Patient Active Problem List Diagnoses Code ??? History of basal cell carcinoma V10.83E Past Medical History Diagnosis Date ??? Varicella ??? Alopecia ??? Rosacea ??? Actinic keratosis ??? Basal cell carcinoma CHIN, left upper lid ??? Basal cell carcinoma 09/30/05 left mormon ??? Basal cell carcinoma 03/17/06 left thigh ??? Basal cell carcinoma 06/30/06 chin ??? Basal cell carcinoma 05/01/09 chin ??? Broken toe left 5th toe Additional Comments: Stephanie Ling 10/17/2010 12:03 documented in this encounter Miscellaneous Notes Scanned Note-Null - Inpatient, MD Sonya - 10/22/2010 1204 EDT documented in this encounter Plan of Treatment Not on filedocumented as of this encounter Visit Diagnoses Diagnosis Menopause Asymptomatic postmenopausal status (age- related) (natural) Osteoporosis, unspecified documented in this encounter Care Teams Police Pilot Relationship Specialty Start Date End Date Sylvester Turcios MD PCP - General 04/27/09 05/10/[address] [place] [id number] documented as of this encounter
--- OUTSIDE RECORDS SUMMARY | 2022-02-07 00:23 | XMS_ITS | Encounter Summary ---
:1940 Author Organization [facility] Address [address] [place] [address] Care Team Providers Name Role Phone Sylvester Turcios MD Primary Care Provider [phone] Encounter Details Date Type Department Care Team Description 10/05/2006 Before [facility] - Elliot Jacob , Converted [facility] [address] [facility] [address] [phone] [place], [address] [place] [phone] (Wo rk) Social History Tobacco Use Types Packs/Day Years Used Date Never Assessed Sex Assigned at Date Recorded Female 05/26/2019 14:58 EST documented as of this encounter Progress Notes Elliot Jacob MD - 04/27/20091954 EST DIVISION OF DERMATOLOGY PROGRESS/FOLLOWUP NOTE - 10/05/2006 Lizzette Solares PA-C [facility] [address] [place] [address] Dear Angela: I had the pleasure of seeing your patient, Brooke Rojo, on October 05, 2006, for treatment of a basal cell carcinoma of the chin measuring 0.3 by 0.3 cm. As you know, the patient is a 66-year-old woman who was seen in consultation for the first time today. The risks and benefits of Mohs surgery and other therapeutic options were discussed with the patient, and formal consent for surgery was obtained. A repeat examination revealed no significant changes from the consultation examination. The vital signs were obtained and documented in the patientoperative record. At surgery, the tumor was excised inone stage of Mohs surgery, leading to a defect measuring 0.5 by 0.5 cm and extending to subcutis. A detailed discussion about the various options for repair led to the joint decision to allow the woundto heal by secondary intention. The patient was discharged from the operative suite to home in good condition. She was carefully instructed in postoperative wound care both verbally and in writing. Thepatient will see me in followup in one week. Thank you for your confidence in me and for allowing me to work with you on the care of this patient. Please feel free to contact me with any questions. Sincerely, Signed by Elliot Jacob MD 10/13/2006 13:18 Cecilio Boateng MD Elliot Jacob MD - Elliot Jacob MD A - dm Job ID: [id number] Document ID: [id number] cc: Lizzette Solares PA-C documented in this encounter Procedure Notes Elliot Jacob MD - 04/27/20091954 EST DIVISION OF DERMATOLOGY PROCEDURE REPORT SERVICE DATE: 10/05/2006 SURGEON: Elliot Jacob MD ASSISTANTS: Allyson Walker PA-C and Debi Sams MD I was present during all guerra and critical portions of this procedure and remained immediately available throughout. I personally performed the guerra elements of the procedure. PREOPERATIVE DIAGNOSIS Basal cell carcinoma PREOPERATIVE PROCEDURE Mohs microscopically-controlled fresh tissue excision INDICATIONS The patient is a 66woman who presents with a basal cell carcinoma of the chin measuring 0.3 by 0.3 cm. Because of the histologic and clinical nature of the lesion, as well as its location, the need to achieve the highest cure rate while providing maximum tissue preservation warranted tumor extirpationvia microscopically-controlled excision using the Mohs fresh tissue technique. Alternate therapeuticoptions were discussed on several occasions prior to surgery. After informed consent was obtained and appropriate instruction was provided, the patient underwent tumor extirpation by the Mohs fresh tissue technique as follows: PROCEDURE Stage 1 The patient was brought to the operative suite and was placed in the recumbent position. The lesion was identified and was prepped with Betadine. The area was infiltrated with lidocaine/epinephrine to achieve complete anesthesia and to augment hemostasis. An initial beveled excision was performed to subcutis with a # 15 scalpel blade and with Gradle scissors as indicated. A hashwas created in the specimen and within the [...] lab where the tissue was divided into two sections. These sections were mapped, color coded at their margins, and handed personally to the oil bay technician for frozen sectioning. The tissue was embedded so that the deep and surface margins lay in thesame plane, and sections were made through this plane. All specimens were then evaluated histologically by me and microscopic tumor was found to persist in zero sections of the first stage. With the patient clear of microscopic tumor, surgery was considered complete. Following surgery the defect measured 0.5 by 0.5 cm. FINAL DIAGNOSIS Basal cell carcinoma FINAL PROCEDURE Mohs microscopically-controlled fresh tissue excision CONDITION Good OPERATIVE TIME 45 minutes per stage COMPLICATIONS None NOTE The wound was then left to heal by secondary intention. Signed by Elliot Jacob MD 10/13/2006 13:18 Cecilio Boateng MD Elliot Jacob MD - Elliot Jacob MD A - dm Job ID: [id number] Document ID: [id number] cc: documented in this encounter Plan of Treatment Not on filedocumented as of this encounter Visit Diagnoses Not on filedocumented in this encounter Care Teams Mental Retardation Nurse Relationship Specialty Start Date End Date Sylvester Turcios MD PCP - General 04/27/09 05/10/[address] [place] [id number] documented as of this encounter
--- OUTSIDE RECORDS SUMMARY | 2022-02-07 00:23 | XMS_ITS | Encounter Summary ---
:1940 Author Organization [facility] Address [address] [place] [address] Care Team Providers Name Role Phone Sylvester Turcios MD Primary Care Provider [phone] Encounter Details Date Type Department Care Team Description 02/04/2011 Results Only Imaging [facility]- KAYLA Turcios MD [phone] [place] [address] (Wo rk) Social History Tobacco Use Types [...] Associated Diagnosis Comme nts MA MAMMO SCREENING 05/06/2011 11:26 Resul ts for this DIGITAL EST procedure are i n the results section. documented in this encounter Results MA MAMMO SCREENING DIGITAL (05/06/2011 11:26 EST) Anatomical Region Laterality Modality Other Specimen Narrative [facility] - 05/06/2011 17:06 EST Comparison is made to images from 05/02/2010 (bilateral) and images from 05/01/2009 (bilateral) and images f rom 03/23/2008 (bilateral) and images from 03/18/2007 (bilateral) a nd images from 03/17/2006 (bilateral) and images from 01/10/2005 ( bilateral) and images from 01/10/2004 and images from 12/08/2002. Bilateral Breast Findings: (CAD used to interpret routine digital) The breasts are heterogeneously dense (5 1% - 75% fibroglandular). This may lower the sensitivity of mammog annie. No significant masses, calcifications or other abnormalities ar e seen. IMPRESSION: BILATERAL BREASTS: Negative, no evidence of malignancy. Normal interval follow-up is recommended in 12 months. OVERALL ASSESSMENT - CATEGORY 1 - NEGATI VE END OF IMPRESSION The patient will be notified of her/his breast imaging results via a lay letter from Radiology. Radiology kimberli l contact the patient directly regarding any findings which re quire additional imaging (Category 0) at this time. Procedure Note 05/06/2011 Comparison is made to images from 2009 (bilateral) and images from 05/01/2009 (bilateral) and images f rom 03/23/2008 (bilateral) and images from 03/18/2007 (bilateral) a nd images from 03/17/2006 (bilateral) and images from 01/10/2005 ( bilateral) and images from 01/10/2004 and images from 12/08/2002. Bilateral Breast Findings: (CAD used to interpret routine digital) The breasts are heterogeneously dense (5 1% - 75% fibroglandular). This may lower the sensitivity of mammog annie. No significant masses, calcifications or other abnormalities ar e seen. IMPRESSION: BILATERAL BREASTS: Negative, no evidence of malignancy. Normal interval follow-up is recommended in 12 months. OVERALL ASSESSMENT - CATEGORY 1 - NEGATI VE END OF IMPRESSION The patient will be notified of her/his breast imaging results via a lay letter from Radiology. Radiology kimberli l contact the patient directly regarding any findings which re quire additional imaging (Category 0) at this time. Performing Organization Address City/State/ZIP Code Phon e Number [facility] documented in this encounter Visit Diagnoses Not on filedocumented in this encounter Care Teams Sleeve Sewer Relationship Specialty Start Date End Date Sylvester Turcios MD PCP - General 04/27/09 05/10/[address] [place] [phone] documented as of this encounter
--- OUTSIDE RECORDS SUMMARY | 2022-02-07 00:24 | XMS_ITS | Encounter Summary ---
:1940 Author Organization [facility] Address [address] [place] [address] Care Team Providers Name Role Phone Unavailable Primary Care Provider Unavailable Encounter Details Date Type Department Care Team Description 05/08/2001 - Hospital Encounter [facility] Emergency, 05/09/2001 Emergency Department - [place], [facility] [address] [place], [place] [id number] Social History Tobacco Use Types Packs/Day Years Used Date Never Assessed Sex Assigned at Date Recorded Female 05/26/2019 14:58 EST documented as of this encounter Discharge Disposition Disposition Code Departure Means Destination Home or Self Care documented in this encounter Plan of Treatment Not on filedocumented as of this encounter Visit Diagnoses Not on filedocumented in this encounter
--- OUTSIDE RECORDS SUMMARY | 2022-02-07 00:24 | XMS_ITS | Encounter Summary ---
:1940 Author Organization [facility] Address [address] [place] [address] Care Team Providers Name Role Phone Unavailable Primary Care Provider Unavailable Encounter Details Date Type Department Care Team Description 04/26/1999 Hospital Encounter [facility]- Alyse Flores MD [address],[facility] [address] [place], [place] [id number] [place] [phone] (Wo rk) Social History Tobacco Use Types Packs/Day Years Used Date Never Assessed Sex Assigned at Date Recorded Female 05/26/2019 14:58 EST documented as of this encounter Discharge Disposition Disposition Code Departure Means Destination Auto Discharge documented in this encounter Plan of Treatment Not on filedocumented as of this encounter Procedures Procedure Name Priority Date/Time Associated Comments Diagnosis MA MAMMOGRAPHIC Routine 04/26/1999 8:40 Results f or this SCREEN DIOR EST procedure are i n the results section. documented in this encounter Results MA MAMMOGRAPHIC SCREEN DIOR (04/26/1999 8:40 EST) Anatomical Region Laterality Modality Other Specimen Impressions [facility] - 05/01/2009 10 :14 EST IMPRESSION: Category 1 Negative, no evidence of malignancy. Nor mal interval follow-up is recommended in 12 months. OVERALL ASSESSMENT - NEGATIVE END OF IMPRESSION: Narrative [facility] - 05/01/2009 10 :14 EST DIOR SCREEN, ROUTINE ?HX DIOR SCATTERED FIBROGLANDULAR DENSITY Comparison is made to films from (bilateral). Bilateral Breast Findings: There are scattered fibroglandular densi ties that could obscure a lesion on mammography. No masses, signif icant calcifications or other abnormalities are seen. Procedure Note Stephanie Rivero MD / Kevin Lang MD - 05/01/2009 DIOR SCREEN, ROUTINE HX DIOR SCATTERED FIB ROGLANDULAR DENSITY Comparison is made to films from 04-18- (bilateral). Bilateral Breast Findings: There are scattered fibroglandular densi ties that could obscure a lesion on mammography. No masses, signif icant calcifications or other abnormalities are seen. IMPRESSION IMPRESSION: Category 1 Negative, no evidence of malignancy. Nor mal interval follow-up is recommended in 12 months. OVERALL ASSESSMENT - NEGATIVE END OF IMPRESSION: Performing Organization Address City/State/ZIP Code Phon e Number [facility] [address] [facility] [address] [facility] [address] [place], [place] [address] documented in this encounter Visit Diagnoses Not on filedocumented in this encounter
--- OUTSIDE RECORDS SUMMARY | 2022-02-07 00:24 | XMS_ITS | Encounter Summary ---
:1940 Author Organization [facility] Address [address] [place] [address] Care Team Providers Name Role Phone Unavailable Primary Care Provider Unavailable Encounter Details Date Type Department Care Team Description 01/04/2003 Hospital Encounter [facility] - Alyse Flores MD [address],[place] [address] [place], [place] [id number] [place] [phone] (Wo rk) Social History Tobacco Use Types Packs/Day Years Used Date Never Assessed Sex Assigned at Date Recorded Female 05/26/2019 14:58 EST documented as of this encounter Discharge Disposition Disposition Code Departure Means Destination Auto Discharge documented in this encounter Plan of Treatment Not on filedocumented as of this encounter Procedures Procedure Name Priority Date/Time Associated Comments Diagnosis NANNETTE MCKINNON DIAG DIGITAL Routine 01/04/2003 15:54 Resu lts for this UNILATERAL ADDED EDT procedure a re in VIEWS the results section. documented in this encounter Results NANNETTE MCKINNON DIAG DIGITAL UNILATERAL ADDED VIEWS (01/04/2003 15:54 EDT) Anatomical Region Laterality Modality Other Specimen Narrative [facility] - 03/06/2009 5: 33 EDT AV LEFT BREAST PRIOR DIGITAL ASY DEN U/S SCHED FOR 01/12/03 Comparison is made to films from 003, 12-08-2001, and 07-23-2000. Left Breast Findings (Spot magnification digital additional projection): The breast is heterogeneously dense. Thi s may lower the sensitivity of mammography. No significant masses, calc ifications or other abnormalities are seen. A questionable abnormality noted on the prior exam is evaluated with compression-magnification views. The are a in question compresses out, consistent with normal fibroglandular ti ssue. There is no evidence of a persistent mass. The ultrasound that w as scheduled was not performed since the finding did not persist. The p atient was aware of this at the time of the exam. Recommend: Continue monthly SBE and [place]/age appropriate screening mammography. BIRADS CATEGORY 1 MAMMOGRAM Procedure Note Yaz Cruz MD / Stephanie Rivero MD - 03/06/2009 AV LEFT BREAST PRIOR DIGITAL ASY DEN U/S SCHED FOR 01/12/03 Comparison is made to films from 003, 12-08-2001, and 07-23-2000. Left Breast Findings (Spot magnification digital additional projection): The breast is heterogeneously dense. Thi s may lower the sensitivity of mammography. No significant masses, calc ifications or other abnormalities are seen. A questionable abnormality noted on the prior exam is evaluated with compression-magnification views. The are a in question compresses out, consistent with normal fibroglandular ti ssue. There is no evidence of a persistent mass. The ultrasound that w as scheduled was not performed since the finding did not persist. The p atient was aware of this at the time of the exam. Recommend: Continue monthly SBE and virgin[place] al/age appropriate screening mammography. BIRADS CATEGORY 1 MAMMOGRAM Performing Organization Address City/State/ZIP Code Phon e Number [facility] [address] [facility] [place] [facility] [address] [facility] [address] [place], [place] [address] documented in this encounter Visit Diagnoses Not on filedocumented in this encounter
--- OUTSIDE RECORDS SUMMARY | 2022-02-07 00:24 | XMS_ITS | Encounter Summary ---
:1940 Author Organization [facility] Address [address] [place] [address] Care Team Providers Name Role Phone Sylvester Turcios MD Primary Care Provider [phone] Alea Esqueda MD Primary Care Provider Unknown, Provider Primary Care Provider Ml Roche NP Primary Care Provider Encounter Details Date Type Department Care Team Description 03/28/1999 Hospital [facility] - Alyse Flores MD [address] [place] [address],[address] [phone] Other Unknown, Provider, [address] [place], [place] [address] Social History Tobacco Use Types Packs/Day Years [...] on filedocumented in this encounter Care Teams Medical Claims Examiner Relationship Specialty Start Date End Date Sylvester Turcios MD PCP - General 04/27/09 05/10/[address] [place] [address] 2 [place], [place] [phone] Alea Esqueda MD PCP - General 05/11/14 02/22/20 [address] [place], [place] [phone] Unknown, Provider, PCP - General 11/07/20 11/11/20 Ml Roche NP PCP - General 11/12/[address] [place] [phone] documented as of this encounter
--- OUTSIDE RECORDS SUMMARY | 2022-02-07 00:24 | XMS_ITS | Encounter Summary ---
:1940 Author Organization [facility] Address [address] [place] [address] Care Team Providers Name Role Phone Unavailable Primary Care Provider Unavailable Encounter Details Date Type Department Care Team Description 12/08/2002 Hospital Encounter [facility]- Alyse Flores MD [address],[facility] [address] [place], [place] [phone] [place] [phone] (Wo rk) Social History Tobacco Use Types Packs/Day Years Used Date Never Assessed Sex Assigned at Date Recorded Female 05/26/2019 14:58 EST documented as of this encounter Discharge Disposition Disposition Code Departure Means Destination Auto Discharge documented in this encounter Plan of Treatment Not on filedocumented as of this encounter Procedures Procedure Name Priority Date/Time Associated Diagnosis Comme nts [place] MAMMO SCREENING Routine 12/08/2002 8:17 EDT Re sults for this DIGITAL procedure are i n the results section. documented in this encounter Results MA MAMMO SCREENING DIGITAL (12/08/2002 8:17 EDT) Anatomical Region Laterality Modality Other Specimen Impressions [facility] - 03/06/2009 1: 23 EDT IMPRESSION: LEFT BREAST - CATEGORY 0 Focal asymmetric density measuring 9 mm. Spot magnification view(s) and ultrasound are recommended at this t janny in the ultrasound, 5 degree angle CC, and mediolateral projec tions. RIGHT BREAST - CATEGORY 1 Negative, no evidence of malignancy. Nor mal interval follow-up is recommended in 12 months. OVERALL ASSESSMENT - INCOMPLETE: NEED AD DITIONAL IMAGING EVALUATION END OF IMPRESSION Narrative [facility] - 03/06/2009 1: 23 EDT ROUTINE ??[PCP JANET SHEPPARD] Comparison is made to films from , 07-23-2000, 04-26-1999, and 04-13-1998. Left Breast Findings (CAD used to interp ret routine digital projection): The breast is heterogeneously dense. Thi s may lower the sensitivity of mammography. A focal asymmetric density is present measuring 9 mm. This finding is seen with confidence onl y on the CC view. This is a new finding. Right Breast Findings (CAD used to inter pret routine digital projection): The breast is heterogeneously dense. Thi s may lower the sensitivity of mammography. No significant masses, calc ifications or other abnormalities are seen. Procedure Note Lupillo Rooney MD / Yaz Cruz MD - 03/06/2009 ROUTINE [PCP JANET SHEPPARD] Comparison is made to films from 002, 07-23-2000, 04-26-1999, and 04-13-1998. Left Breast Findings (CAD used to interp ret routine digital projection): The breast is heterogeneously dense. Thi s may lower the sensitivity of mammography. A focal asymmetric density is present measuring 9 mm. This finding is seen with confidence onl y on the CC view. This is a new finding. Right Breast Findings (CAD used to inter pret routine digital projection): The breast is heterogeneously dense. Thi s may lower the sensitivity of mammography. No significant masses, calc ifications or other abnormalities are seen. IMPRESSION IMPRESSION: LEFT BREAST - CATEGORY 0 Focal asymmetric density measuring 9 mm. Spot magnification view(s) and ultrasound are recommended at this t janny in the ultrasound, 5 degree angle CC, and mediolateral projec tions. RIGHT BREAST - CATEGORY 1 Negative, no evidence of malignancy. Nor mal interval follow-up is recommended in 12 months. OVERALL ASSESSMENT - INCOMPLETE: NEED AD DITIONAL IMAGING EVALUATION END OF IMPRESSION Performing Organization Address City/State/ZIP Code Phon e Number [facility] [address] [facility] [address] [facility] [address] [place], [place] [address] documented in this encounter Visit Diagnoses Not on filedocumented in this encounter
--- OUTSIDE RECORDS SUMMARY | 2022-02-07 00:24 | XMS_ITS | Encounter Summary ---
:1940 Author Organization [facility] Address [address] [place] [address] Care Team Providers Name Role Phone Sylvester Turcios MD Primary Care Provider [phone] Alea Esqueda MD Primary Care Provider Unknown, Provider Primary Care Provider Ml Roche NP Primary Care Provider Encounter Details Date Type Department Care Team Description 03/05/2001 Hospital Encounter [facility] - Nj Daniels MD [address] [place] [address],[address] [phone] Other Unknown, Provider, [address] [place], [place] [id number] Social History Tobacco Use Types Packs/Day Years [...] Name Priority Date/Time Associated Diagnosis Comme nts CYTOPATHOLOGY Routine 03/05/2001 0:00 EDT Results for this procedure are i n the results section . documented in this encounter Results CYTOPATHOLOGY (03/05/2001 0:00 EDT) Pathology Report: CYTOPATHOLOGY REPORT [facility] Reports generated via electronic interface contain sharmila ginal data; however they are lacking the format of the original re port. Caution should be taken when reading/interpreting unfo rmatted reports. Name: ? FEDE ROJO ? Accession #: ? [id number] : ? 1940 (Age: 60) ??F ?Collect Date: ? 02/20 Location: ? [facility] ? Receive Date : ? 03/08/2001 Provider: ?NJ DANIELS MD Copy to: ?NANCY WHITTINGTON MD ? Specimen/Source: ?ThinPrep Pap Test, Cervix/ Endocervix Last Menstrual Period: ? Hormonal/Contraceptive Status: ? Yes: Estorgen ca Previous Gynecologic Pathology: ? Yes Treatment History: ? Cryotherapy: 1993 ? SPECIMEN ADEQUACY ? Satisfactory for evaluation. GENERAL CATEGORIZATION ? Within Normal Limits ? Document reviewed and electronically signed by: ? DUSTY Cardona(ASCP)(IAC) ? Report Date: ??03/09/2001 18:06 End of Report Specimen Performing Organization Address City/State/ZIP Code Phon e Number [facility] [address] [place] [address] SERVICES [facility] [address] [place] [address] documented in this encounter Visit Diagnoses Not on filedocumented in this encounter Care Teams Register Of Wills Relationship Specialty Start Date End Date Sylvester Turcios MD PCP - General 04/27/09 05/10/14 [address] [facility],[address] [phone] Alea Esqueda MD PCP - General 05/11/14 02/22/[address] [place] [phone] Unknown, Provider, PCP - General 11/07/20 11/11/20 Ml Roche NP PCP - General 11/12/[address] [place] [address] documented as of this encounter
--- OUTSIDE RECORDS SUMMARY | 2022-02-07 00:24 | XMS_ITS | Encounter Summary ---
:1940 Author Organization [facility] Address [address] [place] [address] Care Team Providers Name Role Phone Unavailable Primary Care Provider Unavailable Encounter Details Date Type Department Care Team Description 01/10/2004 [facility] A[facility] Back MD [address],[facility] 790 [facility] [address] [place] [address] [place], [place] [phone] (Wo rk) Social History Tobacco Use Types Packs/Day Years Used Date Never Assessed Sex Assigned at Date Recorded Female 05/26/2019 14:58 EST documented as of this encounter Discharge Disposition Disposition Code Departure Means Destination Auto Discharge documented in this encounter Plan of Treatment Not on filedocumented as of this encounter Procedures Procedure Name Priority Date/Time Associated Diagnosis Comme nts MA MAMMO SCREENING Routine 01/10/2004 8:07 EDT Re sults for this DIGITAL procedure are i n the results section. documented in this encounter Results MA MAMMO SCREENING DIGITAL (01/10/2004 8:07 EDT) Anatomical Region Laterality Modality Other Specimen Impressions [facility] - 03/01/2009 12 :19 EDT IMPRESSION: BILATERAL BREASTS - CATEGORY 1 Negative, no evidence of malignancy. Nor mal interval follow-up is recommended in 12 months. OVERALL ASSESSMENT - NEGATIVE END OF IMPRESSION Narrative [facility] - 03/01/2009 12 :19 EDT ROUTINE ? [PCP NANCY WHITTINGTON, REQ PARISH BACK ] Comparison is made to films from 003 (bilateral) and 07-23-2000 (bilateral). Bilateral Breast Findings (CAD used to i nterpret routine digital projection): The breasts are heterogeneously dense. T his may lower the sensitivity of mammography. No significant masses, c alcifications or other abnormalities are seen. Procedure Note Surya Lang MD - 03/01/2009 ROUTINE [PCP NANCY WHITTINGTON, REQ PARISH BACK] Comparison is made to films from 003 (bilateral) and 07-23-2000 (bilateral). Bilateral Breast Findings (CAD used to i nterpret routine digital projection): The breasts are heterogeneously dense. T his may lower the sensitivity of mammography. No significant masses, c alcifications or other abnormalities are seen. IMPRESSION IMPRESSION: BILATERAL BREASTS - CATEGORY 1 Negative, no evidence of malignancy. Nor mal interval follow-up is recommended in 12 months. OVERALL ASSESSMENT - NEGATIVE END OF IMPRESSION Performing Organization Address City/State/ZIP Code Phon e Number [facility] 111 [facility] [address] [facility] [address] [place], [place] [address] documented in this encounter Visit Diagnoses Not on filedocumented in this encounter
--- OUTSIDE RECORDS SUMMARY | 2022-02-07 00:24 | XMS_ITS | Encounter Summary ---
:1940 Author Organization [facility] Address [address] [place] [address] Care Team Providers Name Role Phone Sylvester Turcios MD Primary Care Provider [phone] Alea Esqueda MD Primary Care Provider Unknown, Provider Primary Care Provider Ml Roche NP Primary Care Provider Encounter Details Date Type Department Care Team Description 09/23/2002 Hospital Encounter [facility] Gracy Mcbride pe, [facility] [id number] [place] [phone] (Wo rk) Social History Tobacco Use Types [...] Procedure Name Priority Date/Time Associated Comments Diagnosis URINE MICROSCOPIC Routine 09/23/2002 9:35 Results for this EST procedure are i n the results section. URINALYSIS WITH Routine 09/23/2002 9:35 Results f or this MICROSCOPIC IF EST procedure are in POSITIVE the results section. THYROID CASCADE Routine 09/23/2002 9:34 Results f or this EST procedure are i n the results section. COMPLETE BLOOD COUNT Routine 09/23/2002 9:34 Resu lts for this EST procedure are i n the results section. LIPID PROFILE Routine 09/23/2002 9:34 Results for this (INCLUDES CHOLESTEROL, EST proce dure are in TRIGLYCERIDES, HDL, the resu lts LDL) section. COMPREHENSIVE Routine 09/23/2002 9:34 Results for this METABOLIC PANEL (CMP) EST proced ure are in the results section. documented in this encounter Results (ABNORMAL) URINE MICROSCOPIC (09/23/2002 9:35 EST) WBC, UA less than 1 0 - 5 /HPF [facility] RBC, UA 1 to 5 0 - 5 /HPF [facility] Squam Epithel, UA Few NS /HPF [facility] Few transitional epithelial cells. (A) LA B Renal Epithel, UA Few (A) NS /HPF [facility] Bacteria, UA Rare (A) NS /HPF [facility] Crystals, UA None seen /HPF [facility] Hyaline Casts, UA 2 to 10 Hyaline /LPF [facility] UA Comment Microscopic results [facility] are unreliable on LAB urines unrefrig >2hrs or refrig >8hrs. Mucus, UA Mod [facility] Specimen Performing Organization Address City/State/ZIP Code Phon e Number [facility] [address] [place] [address] SERVICES [facility] [address] [place] [address] (ABNORMAL) URINALYSIS (09/23/2002 9:35 EST) Color, UA Yellow [facility] Clarity, UA Clear [facility] Glucose, UA Norm NORM [facility] Bilirubin, UA Neg NEG [facility] Ketones, UA Neg NEG [facility] Specific [place], >1.030 (H) 1.005 - 1.02 [facility] Blood, UA Mod (A) NEG [facility] pH, UA 5.0 5.0 - 9.0 [facility] Protein, UA Neg NEG [facility] Urobilinogen, UA Norm NORM mg/dL [facility] Nitrite, UA Neg NEG [facility] Leuk Esterase Neg NEG [facility] UA Comment Refractometer specific gravi ty ? 1.023 ? Results greater than 1.035 suggest possible [facility] interference from glucose or ?radiographic d ye. LAB Specimen Performing Organization Address [facility] Phon e Number [facility] [address] [place] [address] SERVICES [facility] [address] [place] [address] THYROID CASCADE (09/23/2002 9:34 EST) Pathologist Sig nature TSH 2.29 0.35 - 5.50 uIU/ml [facility] Specimen Performing Organization Address [facility] Phon e Number [facility] [address] [place] [address] SERVICES [facility] [address] [place] [address] LIPID PROFILE (INCLUDES CHOLESTEROL, TRIGLYCERIDES, HDL, LDL) (09/23/2002 9:34 EST) Cholesterol 237 mg/dl [facility] Comment: Desirable:<200 Borderline:200-239 High Risk:>dt=205 Fasting Triglycerides 109Comment: 35 - 160 mg/dl [facility] Fasting HDL 82 mg/dl [facility] Comment: Highly Desirable:>60 Desirable:35-60 High Risk:<35 Fasting LDL, Calculated 133 mg/dl [facility] Comment: Desirable:<130 Borderline:130-159 High Risk:>px=468 Fasting Chol/HDL Ratio 2.9 [facility] Fasting Specimen Performing Organization Address [facility] Phon e Number [facility] [address] [place] [address] SERVICES [facility] [address] [place] [address] HEMAGRAM (09/23/2002 9:34 EST) Pathologist Sig nature WBC 5.80 4.0 - 12.4 K/cmm [facility] RBC 4.62 3.86 - 5.04 M/cmm [facility] Hemoglobin 13.8 11.6 - 15.2 gm/dl [facility] HCT 41.0 34.9 - 44.4 % [facility] MCV 89 81 - 98 fl [facility] MCH 29.8 26.7 - 33.3 pg [facility] MCHC 33.6 32.1 - 35.9 gm/dl [facility] PLT 302 141 - 320 K/cmm [facility] RDW-CV 11.9 11.7 - 14.6 % [facility] Specimen Performing Organization Address [facility] Phon e Number [facility] [address] [place] [address] SERVICES [facility] [address] [place] [address] COMPREHENSIVE METABOLIC PANEL (CMP) (09/23/2002 9:34 EST) Potassium 4.4Comment: 3.5 - 5.0 [facility] Fasting mEq/L LAB Sodium 143Comment: 136 - 145 [facility] Fasting mEq/L LAB Chloride 105Comment: 96 - 110 [facility] Fasting mEq/L LAB CO2 30Comment: 24 - 30 mEq/L [facility] LAB Total Alkaline 97Comment: 38 - 126 U/L [facility] Phosphatase Fasting LAB Bilirubin, Total 0.6Comment: 0.2 - 1.3 [facility] Fasting mg/dl LAB AST 32Comment: 8 - 50 U/L [facility] Fasting LAB ALT 29Comment: 15 - 75 U/L [facility] LAB Albumin 4.5Comment: 3.0 - 5.5 [facility] Fasting g/dl LAB Total Protein 7.9Comment: 6.0 - 8.5 [facility] Fasting g/dl LAB Creatinine 1.1Comment: 0.7 - 1.5 [facility] Fasting mg/dl LAB BUN 22Comment: 10 - 26 mg/dl [facility] Fasting LAB Calcium 9.2Comment: 8.5 - 10.5 [facility] Fasting mg/dl LAB Calculated Calcium 9.1Comment: 8.5 - 10.5 [facility] Fasting mg/dl LAB Glucose, Serum 91Comment: 70 - 110 [facility] Fasting mg/dl LAB Albumin/Globulin 1.3 [facility] Ratio Fasting LAB Specimen Performing Organization Address [facility] Phon e Number [facility] [address] [place] [address] SERVICES [facility] [address] [place] [address] documented in this encounter Visit Diagnoses Not on filedocumented in this encounter Care Teams System Support Administrator Relationship Specialty Start Date End Date Sylvester Turcios MD PCP - General 04/27/09 05/10/[address] [place] [phone] Alea Esqueda MD PCP - General 05/11/14 02/22/[address] [place] [phone] Unknown, Provider, PCP - General 11/07/20 11/11/20 Ml Roche NP PCP - General 11/12/[address] [place] [address] [address] [place] [id number] documented as of this encounter
--- OUTSIDE RECORDS SUMMARY | 2022-02-07 00:24 | XMS_ITS | Encounter Summary ---
:1940 Author Organization [facility] Address [address] [place] [address] Care Team Providers Name Role Phone Unavailable Primary Care Provider Unavailable Encounter Details Date Type Department Care Team Description 01/10/2005 Hospital Encounter [facility] - Nancy Whittington, Sb MD [id number] [place] [address] [phone] (Wo rk) Social History Tobacco Use Types Packs/Day Years Used Date Never Assessed Sex Assigned at Date Recorded Female 05/26/2019 14:58 EST documented as of this encounter Discharge Disposition Disposition Code Departure Means Destination Auto Discharge documented in this encounter Plan of Treatment Not on filedocumented as of this encounter Procedures Procedure Name Priority Date/Time Associated Diagnosis Comme nts MA MAMMO SCREENING 01/10/2005 7:33 EDT Re sults for this DIGITAL procedure are i n the results section. documented in this encounter Results MA MAMMO SCREENING DIGITAL (01/10/2005 7:33 EDT) Anatomical Region Laterality Modality Other Specimen Narrative [facility] - 01/25/2009 3: 28 EDT ROUTINE [PCP NANCY WHITTINGTON, CC PAR[facility] BENZ] Comparison is made to films from 004 and films from 12/08/2002 and films from 07/23/2000. Bilateral Breast Findings: (cad used to interpret routine digital): The breasts are heterogeneously dense. T his may lower the sensitivity of mammography. ??No significant masses, calcifications or other abnormalities are seen. IMPRESSION: BILATERAL BREAST - CATEGORY 1 Negative, no evidence of malignancy. Nor mal interval follow-up is recommended in 12 months. OVERALL ASSESSMENT - NEGATIVE END OF IMPRESSION I have personally reviewed the images an d the above interpretation and agree with the findings. Procedure Note Cherelle Bauer MD / Curtis Lang MD - 01/25/2009 ROUTINE [PCP NANCY WHITTINGTON, CC PARISH PORTER H] Comparison is made to films from 004 and films from 12/08/2002 and films from 07/23/2000. Bilateral Breast Findings: (cad used to interpret routine digital): The breasts are heterogeneously dense. T his may lower the sensitivity of mammography. No significant masses, c alcifications or other abnormalities are seen. IMPRESSION: BILATERAL BREAST - CATEGORY 1 Negative, no evidence of malignancy. Nor mal interval follow-up is recommended in 12 months. OVERALL ASSESSMENT - NEGATIVE END OF IMPRESSION I have personally reviewed the images an d the above interpretation and agree with the findings. Performing Organization Address City/State/ZIP Code Phon e Number [facility] [address] [facility] [address] [facility] [address] [place], [place] [address] documented in this encounter Visit Diagnoses Not on filedocumented in this encounter
--- OUTSIDE RECORDS SUMMARY | 2022-02-07 00:24 | XMS_ITS | Encounter Summary ---
:1940 Author Organization [facility] Address [address] [place] [address] Care Team Providers Name Role Phone Sylvester Turcios MD Primary Care Provider [phone] Alea Esqueda MD Primary Care Provider Unknown, Provider Primary Care Provider Ml Roche NP Primary Care Provider Encounter Details Date Type Department Care Team Description 07/01/2005 Hospital Encounter [facility] [address] [phone] ,[address] [place], [place] [address] (Wo rk) Social History [...] on filedocumented in this encounter Care Teams Associate Professor Of Church Music Relationship Specialty Start Date End Date Sylvester Turcios MD PCP - General 04/27/09 05/10/[address] [place] [id number] Alea Esqueda MD PCP - General 05/11/14 02/22/20 [address] [place] [address] Unknown, MD Ya PCP - General 11/07/20 11/11/20 Ml Roche NP PCP - General 11/12/[address] [place] [address] documented as of this encounter
--- OUTSIDE RECORDS SUMMARY | 2022-02-07 00:24 | XMS_ITS | Encounter Summary ---
:1940 Author Organization [facility] Address [address] [place] [address] Care Team Providers Name Role Phone Unavailable Primary Care Provider Unavailable Encounter Details Date Type Department Care Team Description 09/16/2005 Hospital Encounter [facility] - Deanna Back MD [place] [id number] [facility] 111 [facility] [address] [place] [address] [place], [place] [phone] (Wo rk) Social History Tobacco Use Types Packs/Day Years Used Date Never Assessed Sex Assigned at Date Recorded Female 05/26/2019 14:58 EST documented as of this encounter Discharge Disposition Disposition Code Departure Means Destination Auto Discharge documented in this encounter Plan of Treatment Not on filedocumented as of this encounter Procedures Procedure Name Priority Date/Time Associated Comments Diagnosis RAD US JACOB BREAST 09/16/2005 15:14 Resul ts for this UNILATERAL - ONE EST procedure a re in BREAST the results section. INO DX UNILATERAL 09/16/2005 14:23 Result s for this EMERGENCY 1 BREAST EST procedure are in the results section. documented in this encounter Results RAD US JACOB BREAST UNILATERAL - ONE BREAST (09/16/2005 15:14 EST) Anatomical Region Laterality Modality Other Specimen Narrative [facility] - 01/06/2009 10 :21 EDT LEFT BR PAIN, RECENT ONSET, ESPECIALLY SUBAREOLAR AND IN AN AREA ABOUT 4:00 ABOUT 2 CM FROM AREOLAR RONA N LEFT BREAST DIAGNOSTIC DIGITAL MAMMOGRAP HY & LEFT BREAST ULTRASOUND: 09/16/05 CLINICAL HISTORY: The patient presents with diffuse left b reast pain of recent onset. It is particularly bothersome in the sub areolar region. ??A lump was identified by the patient's physician at 4 o'clock, 2cm out from the areolar margin. COMPARISON: 01/10/05, 01/10/04, 12/08/02 and 998. LEFT BREAST FINDINGS: Full field digital diagnostic views of t he left breast were obtained. BBs were placed as mole markers. ??The p atient was unable to identify a specific site of lump and stated that the pain was diffuse in the left breast. ??The breast tissue is hete rogeneously dense, limiting interpretation. ??There is no dominant m ass or suspicious calcification. ??A large, dense macrocal cification is present at 9 o'clock in the left breast, stable for m any years. Sonography of the entire left breast was performed. ??There is no finding noted in the area of clinical co ncern at 4 o'clock, 4cm out from the nipple, which is 2cm out from t he areola. ??At 9 o'clock, 2.5cm out from the nipple, the large mac rocalcification seen on mammography is identified. ??Immediately adjacent to this is a small, hypoechoic, boomerang-shaped nodule jackelyn uring 5 x 5 x 8mm. ??In retrospect, a small nodule of this size can be identified just anterior to the macrocalcification on th e mammogram and this finding, on mammography, has not changed since . IMPRESSION LEFT BREAST: 1. ? There is no finding noted on mammography or sonography at the site of clinical concern, at 4 o'demetrice ck. ??BI-RADS CATEGORY 1. ??Any decision to aspirate or biopsy should be based on clinical findings. If the clinical finding is felt to be co ncerning, referral to a breast surgeon should be accomplished. ? ?Annual screening mammography is recommended, with the next bilateral mammogram to be obtained in December of 2005. 2. ? Hypoechoic, oval to boomeran g-shaped, solid mass located at 9 o'clock, 2.5cm out from the nipple, ad jacent to a large macrocalcification. ??This likely corres ponds to the nodularity seen on the mammogram, which is stable for qu ite some time. ??However, this has not been seen on sonography previous ly. ??This is, therefore, probably benign. ??BI-RADS CATEGORY 3. ? ?Six-month follow-up sonography is recommended. Results and recommendations were discuss ed with the patient by the radiologist at the time of the exam. This examination was interpreted with e aid of computer-aided detection (CAD) technology. OVERALL ASSESSMENT - PROBABLY BENIGN. /alex Procedure Note No Cisneros MD - 01/06/2009 LEFT BR PAIN, RECENT ONSET, ESPECIALLY SUBAREOLAR AND IN AN AREA ABOUT 4:00 ABOUT 2 CM FROM AREOLAR RONA N LEFT BREAST DIAGNOSTIC DIGITAL MAMMOGRAP HY & LEFT BREAST ULTRASOUND: 09/16/05 CLINICAL HISTORY: The patient presents with diffuse left b reast pain of recent onset. It is particularly bothersome in the sub areolar region. A lump was identified by the patient's physician at 4 o'clock, 2cm out from the areolar margin. COMPARISON: 01/10/05, 01/10/04, 12/08/02 and 998. LEFT BREAST FINDINGS: Full field digital diagnostic views of t he left breast were obtained. BBs were placed as mole markers. The pat ient was unable to identify a specific site of lump and stated that the pain was diffuse in the left breast. The breast tissue is hetero geneously dense, limiting interpretation. There is no dominant mas s or suspicious calcification. A large, dense macrocalci fication is present at 9 o'clock in the left breast, stable for m any years. Sonography of the entire left breast was performed. There is no finding noted in the area of clinical co ncern at 4 o'clock, 4cm out from the nipple, which is 2cm out from t he areola. At 9 o'clock, 2.5cm out from the nipple, the large mac rocalcification seen on mammography is identified. Immediately a djacent to this is a small, hypoechoic, boomerang-shaped nodule jackelyn uring 5 x 5 x 8mm. In retrospect, a small nodule of this size can be identified just anterior to the macrocalcification on th e mammogram and this finding, on mammography, has not changed since . IMPRESSION LEFT BREAST: 1. There is no finding noted on mammogra phy or sonography at the site of clinical concern, at 4 o'demetrice ck. BI-RADS CATEGORY 1. Any decision to aspirate or biopsy should be based on clinical findings. If the clinical finding is felt to be co ncerning, referral to a breast surgeon should be accomplished. A nnual screening mammography is recommended, with the next bilateral mammogram to be obtained in December of 2005. 2. Hypoechoic, oval to boomerang-shaped, solid mass located at 9 o'clock, 2.5cm out from the nipple, ad jacent to a large macrocalcification. This likely correspo nds to the nodularity seen on the mammogram, which is stable for qu ite some time. However, this has not been seen on sonography previous ly. This is, therefore, probably benign. BI-RADS CATEGORY 3. Six -month follow-up sonography is recommended. Results and recommendations were discuss ed with the patient by the radiologist at the time of the exam. This examination was interpreted with th e aid of computer-aided detection (CAD) technology. OVERALL ASSESSMENT - PROBABLY BENIGN. /alex Performing Organization Address City/State/ZIP Code Phon e Number [facility] [address] [facility] [place] [address] [facility] [address] [place], [place] [address] INO DX UNILATERAL EMERGENCY 1 BREAST (09/16/2005 14:23 EST) Anatomical Region Laterality Modality Other Specimen Narrative [facility] - 01/06/2009 10 :21 EDT LEFT BR PAIN, RECENT ONSET, ESPECIALLY SUBAREOLAR AND IN AN AREA ABOUT 4:00 ABOUT 2 CM FROM AREOLAR RONA N LEFT BREAST DIAGNOSTIC DIGITAL MAMMOGRAP HY & LEFT BREAST ULTRASOUND: 09/16/05 CLINICAL HISTORY: The patient presents with diffuse left b reast pain of recent onset. It is particularly bothersome in the sub areolar region. ??A lump was identified by the patient's physician at 4 o'clock, 2cm out from the areolar margin. COMPARISON: 01/10/05, 01/10/04, 12/08/02 and 998. LEFT BREAST FINDINGS: Full field digital diagnostic views of t he left breast were obtained. BBs were placed as mole markers. ??The p atient was unable to identify a specific site of lump and stated that the pain was diffuse in the left breast. ??The breast tissue is hete rogeneously dense, limiting interpretation. ??There is no dominant m ass or suspicious calcification. ??A large, dense macrocal cification is present at 9 o'clock in the left breast, stable for m any years. Sonography of the entire left breast was performed. ??There is no finding noted in the area of clinical co ncern at 4 o'clock, 4cm out from the nipple, which is 2cm out from t he areola. ??At 9 o'clock, 2.5cm out from the nipple, the large mac rocalcification seen on mammography is identified. ??Immediately adjacent to this is a small, hypoechoic, boomerang-shaped nodule jackelyn uring 5 x 5 x 8mm. ??In retrospect, a small nodule of this size can be identified just anterior to the macrocalcification on th e mammogram and this finding, on mammography, has not changed since . IMPRESSION LEFT BREAST: 1. ? There is no finding noted on mammography or sonography at the site of clinical concern, at 4 o'demetrice ck. ??BI-RADS CATEGORY 1. ??Any decision to aspirate or biopsy should be based on clinical findings. If the clinical finding is felt to be co ncerning, referral to a breast surgeon should be accomplished. ? ?Annual screening mammography is recommended, with the next bilateral mammogram to be obtained in December of 2005. 2. ? Hypoechoic, oval to boomeran g-shaped, solid mass located at 9 o'clock, 2.5cm out from the nipple, ad jacent to a large macrocalcification. ??This likely corres ponds to the nodularity seen on the mammogram, which is stable for qu ite some time. ??However, this has not been seen on sonography previous ly. ??This is, therefore, probably benign. ??BI-RADS CATEGORY 3. ? ?Six-month follow-up sonography is recommended. Results and recommendations were discuss ed with the patient by the radiologist at the time of the exam. This examination was interpreted with e aid of computer-aided detection (CAD) technology. OVERALL ASSESSMENT - PROBABLY BENIGN. /alex Procedure Note No Cisneros MD - 01/06/2009 LEFT BR PAIN, RECENT ONSET, ESPECIALLY SUBAREOLAR AND IN AN AREA ABOUT 4:00 ABOUT 2 CM FROM AREOLAR RONA N LEFT BREAST DIAGNOSTIC DIGITAL MAMMOGRAP HY & LEFT BREAST ULTRASOUND: 09/16/05 CLINICAL HISTORY: The patient presents with diffuse left b reast pain of recent onset. It is particularly bothersome in the sub areolar region. A lump was identified by the patient's physician at 4 o'clock, 2cm out from the areolar margin. COMPARISON: 01/10/05, 01/10/04, 12/08/02 and 998. LEFT BREAST FINDINGS: Full field digital diagnostic views of t he left breast were obtained. BBs were placed as mole markers. The pat ient was unable to identify a specific site of lump and stated that the pain was diffuse in the left breast. The breast tissue is hetero geneously dense, limiting interpretation. There is no dominant mas s or suspicious calcification. A large, dense macrocalci fication is present at 9 o'clock in the left breast, stable for m any years. Sonography of the entire left breast was performed. There is no finding noted in the area of clinical co ncern at 4 o'clock, 4cm out from the nipple, which is 2cm out from t he areola. At 9 o'clock, 2.5cm out from the nipple, the large mac rocalcification seen on mammography is identified. Immediately a djacent to this is a small, hypoechoic, boomerang-shaped nodule jackelyn uring 5 x 5 x 8mm. In retrospect, a small nodule of this size can be identified just anterior to the macrocalcification on th e mammogram and this finding, on mammography, has not changed since . IMPRESSION LEFT BREAST: 1. There is no finding noted on mammogra phy or sonography at the site of clinical concern, at 4 o'demetrice ck. BI-RADS CATEGORY 1. Any decision to aspirate or biopsy should be based on clinical findings. If the clinical finding is felt to be co ncerning, referral to a breast surgeon should be accomplished. A nnual screening mammography is recommended, with the next bilateral mammogram to be obtained in December of 2005. 2. Hypoechoic, oval to boomerang-shaped, solid mass located at 9 o'clock, 2.5cm out from the nipple, ad jacent to a large macrocalcification. This likely correspo nds to the nodularity seen on the mammogram, which is stable for qu ite some time. However, this has not been seen on sonography previous ly. This is, therefore, probably benign. BI-RADS CATEGORY 3. Six -month follow-up sonography is recommended. Results and recommendations were discuss ed with the patient by the radiologist at the time of the exam. This examination was interpreted with th e aid of computer-aided detection (CAD) technology. OVERALL ASSESSMENT - PROBABLY BENIGN. /alex Performing Organization Address City/State/ZIP Code Phon e Number [facility] [address] [facility] [address] [facility] [address] [place], [place] [address] documented in this encounter Visit Diagnoses Not on filedocumented in this encounter
--- OUTSIDE RECORDS SUMMARY | 2022-02-07 00:24 | XMS_ITS | Encounter Summary ---
:1940 Author Organization [facility] Address [address] [place] [address] Care Team Providers Name Role Phone Sylvester Turcios MD Primary Care Provider [phone] Alea Esqueda MD Primary Care Provider Unknown, Provider Primary Care Provider Ml Roche NP Primary Care Provider Encounter Details Date Type Department Care Team Description 01/03/2003 Hospital Encounter [facility] - Leah Solares PA-C [address] [address] ,[address] [place], [place] [address] (Wo rk) Social History [...] Associated Diagnosis Comme nts SURGICAL PATHOLOGY Routine 01/03/2003 0:00 EDT Re sults for this procedure are i n the results section. documented in this encounter Results SURGICAL PATHOLOGY (01/03/2003 0:00 EDT) Pathology Report: SURGICAL PATHOLOGY REPORT [facility] Reports generated via electronic interface contain sharmila ginal data; LAB however they are lacking the format of the original re port. Caution should be taken when reading/interpreting unfo rmatted reports. Name: ? FEDE ROJO ? Accession #: ? [id number] ? : ? 1940 (Age: 62) ??F ? Collect Date: ? 01/03/2003 ? Location: ? [facility] ? Receive Date: ? 003 ? Provider: LEAH SOTO Copy to: ? Final Pathologic Diagnosis: ? Skin of scalp, left, shave biopsy: - Seborrheic keratosis, inflamed. Document reviewed and electronically signed by: Eve Davis MD Report ??Date: 01/05/2003 16:54 By the signature above, the attending physician certif ies that he/she has personally conducted a gross and/or microscopic examin ation of the described specimens and rendered or confirmed the above diagnosi s. Specimen(s) Received: ? L scalp Clinical History: ? H/O BCC; pt of Pat Seal; irritated SK; clinical diagnosis code: 238.2 Gross Description: ? Received in formalin labelled Szely and L scalp is a shave biopsy of a hair bearing, granular, flesh-colored pa pule that measures 1.0 x 0.6 x 0.2 cm. The specimen is trisected and submitted entirely in on e cassette. ??(Dr. Andrade)/eyal End of Report Specimen Performing Organization Address City/State/ZIP Code Phon e Number [facility] [address] [place] [address] SERVICES [facility] [address] [place] [address] documented in this encounter Visit Diagnoses Not on filedocumented in this encounter Care Teams Electrical Tryout Person Relationship Specialty Start Date End Date Sylvester Turcios MD PCP - General 04/27/09 05/10/[address] [place] [id number] Alea Esqueda MD PCP - General 05/11/14 02/22/[address] [place] [phone] Unknown, Provider, PCP - General 11/07/20 11/11/20 Ml oRche NP PCP - General 11/12/[address] [place], [place] [address] [address] [place] [id number] documented as of this encounter
--- OUTSIDE RECORDS SUMMARY | 2022-02-07 00:24 | XMS_ITS | Encounter Summary ---
:1940 Author Organization [facility] Address [address] [place] [address] Care Team Providers Name Role Phone Unavailable Primary Care Provider Unavailable Encounter Details Date Type Department Care Team Description 07/02/2000 Hospital Encounter [facility] - Dejah Menendez MD [address] [place] [phone] (Wo rk) Social History Tobacco Use Types Packs/Day Years Used Date Never Assessed Sex Assigned at Date Recorded Female 05/26/2019 14:58 EST documented as of this encounter Discharge Disposition Disposition Code Departure Means Destination Auto Discharge documented in this encounter Plan of Treatment Not on filedocumented as of this encounter Procedures Procedure Name Priority Date/Time Associated Comments Diagnosis INTRAVENOUS UROGRAPHY Routine 07/02/2000 14:00 Re sults for this W/TOMOGRAM EST procedure are i n the results section. 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 /sb Narrative [facility] - 05/02/2009 0: 11 EST HEMATURIA R/O MASS IV UROGRAM WITH TOMOGRAMS: 101, 1100 HISTORY: Rule out mass. FINDINGS: There are bilateral nephrograms, which a re symmetric. There is bilateral ureteral filling with spillage into the bladder. There is no intraluminal filling defect, strictur e, or evidence of obstruction. In the mid-pole of the left kidney, ther e appears to be a lack of calyceal opacification. This most likely represents a pericalyceal cyst. If further assessment is required in this area, ultrasound may be performed for further correlation. Procedure Note Wilfredo Erickson MD / Josse Melgar MD - 05/02/2009 HEMATURIA R/O MASS IV UROGRAM WITH TOMOGRAMS: , 1100 HISTORY: Rule out mass. FINDINGS: There are bilateral nephrograms, which a re symmetric. There is bilateral ureteral filling with spillage into the bladder. There is no intraluminal filling defect, strictur e, or evidence of obstruction. In the mid-pole of the left kidney, ther e appears to be a lack of calyceal opacification. This most likely represents a pericalyceal cyst. If further assessment is required in this area, ultrasound may be performed for further correlation. 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 /jonathan Performing Organization Address City/State/ZIP Code Phon e Number [facility] [address] [facility] [address] [facility] [address] [place], [place] [address] documented in this encounter Visit Diagnoses Not on filedocumented in this encounter
--- OUTSIDE RECORDS SUMMARY | 2022-02-07 00:24 | XMS_ITS | Encounter Summary ---
:1940 Author Organization [facility] Address [address] [place] [address] Care Team Providers Name Role Phone Unavailable Primary Care Provider Unavailable Encounter Details Date Type Department Care Team Description 12/08/2001 Hospital Encounter [facility]- Nj Daniels MD [address],[facility] [address] [place], [place] [id number] [place] [phone] (Wo rk) Social History Tobacco Use Types Packs/Day Years Used Date Never Assessed Sex Assigned at Date Recorded Female 05/26/2019 14:58 EST documented as of this encounter Discharge Disposition Disposition Code Departure Means Destination Auto Discharge documented in this encounter Plan of Treatment Not on filedocumented as of this encounter Procedures Procedure Name Priority Date/Time Associated Comments Diagnosis MA MAMMOGRAPHIC Routine 12/08/2001 8:09 Results f or this SCREEN DIOR EDT procedure are i n the results section. documented in this encounter Results MA MAMMOGRAPHIC SCREEN DIOR (12/08/2001 8:09 EDT) Anatomical Region Laterality Modality Other Specimen Impressions [facility] - 04/04/2009 0: 35 EDT IMPRESSION: BILATERAL BREASTS - Category 1 Negative, no evidence of malignancy. Nor mal interval follow-up is recommended in 12 months. OVERALL ASSESSMENT - NEGATIVE END OF IMPRESSION Narrative [facility] - 04/04/2009 0: 35 EDT ROUTINE ?? [PCP NANCY WHITTINGTON, REQ [place] DANIELS] Comparison is made to films from 99 (bilateral). Bilateral Breast Findings: The breasts are heterogeneously dense. T his may lower the sensitivity of mammography. No masses, significant c alcifications or other abnormalities are seen. Procedure Note Regina Narayan PT / Christopher Hopper MD - 04/04/2009 ROUTINE [PCP NANCY WHITTINGTON, JANET GUTHRIE ON] Comparison is made to films from (bilateral). Bilateral Breast Findings: The breasts are heterogeneously dense. T his may lower the sensitivity of mammography. No masses, significant c alcifications or other abnormalities are seen. IMPRESSION IMPRESSION: BILATERAL BREASTS - Category 1 Negative, no evidence of malignancy. Nor mal interval follow-up is recommended in 12 months. OVERALL ASSESSMENT - NEGATIVE END OF IMPRESSION Performing Organization Address City/State/ZIP Code Phon e Number [facility] [address] [facility] [address] [facility] [address] [place], [place] [address] documented in this encounter Visit Diagnoses Not on filedocumented in this encounter
--- OUTSIDE RECORDS SUMMARY | 2022-02-07 00:24 | XMS_ITS | Encounter Summary ---
:[address] [facility] Address [address] [place] [address] Care Team Providers Name Role Phone Sylvester Turcios MD Primary Care Provider [phone] Alea Esqueda MD Primary Care Provider Unknown, Provider Primary Care Provider Ml Roche NP Primary Care Provider Encounter Details Date Type Department Care Team Description 05/07/[address] [facility] - Gracy Mcbride MD [address] [place] [phone] Other Unknown, Provider, [address] [place] [address] Social History Tobacco Use Types [...] Date/Time Associated Comments Diagnosis URINE MICROSCOPIC Routine 05/07/2000 13:15 Result s for this EST procedure are i n the results section. URINALYSIS WITH Routine 05/07/2000 13:15 Results for this MICROSCOPIC IF EST procedure are in POSITIVE the results section. BACTERIAL CULTURE, Routine 05/07/2000 13:15 Resul ts for this URINE EST procedure are i n the results section. documented in this encounter Results BACTERIAL CULTURE, URINE (05/07/2000 13:15 EST) Specimen Description Urine [facility] Result 10,000 to 100,000 CFU/ml [facility] STREPTOCOCCUS, BETA HEMOLYTIC GROUP B (STREPTOCOCCUS A GALACTIAE) Report Status Final [facility] [id number] Specimen Performing Organization Address [facility] Phon e Number [facility] [address] [place] [address] SERVICES [facility] [address] [place] [address] (ABNORMAL) URINE MICROSCOPIC (05/07/2000 13:15 EST) WBC, UA less than 1 0 - 5 /HPF [facility] RBC, UA less than 1 0 - 5 /HPF [facility] Squam Epithel, UA Many (A) NS /HPF [facility] Renal Epithel, UA None seen NS /HPF [facility] Bacteria, UA None seen NS /HPF [facility] Crystals, UA None seen /HPF [facility] Hyaline Casts, UA None seen /LPF [facility] UA Comment Microscopic results [facility] unreliable on LAB urines unrefrig >2hrs or refrig >8hrs. Specimen Performing Organization Address [facility] Phon e Number [facility] [address] [place] [address] SERVICES [facility] [address] [place] [address] (ABNORMAL) URINALYSIS (05/07/2000 13:15 EST) Pathologist Sig nature Color, UA Yellow [facility] Clarity, UA Clear [facility] Glucose, UA Norm NORM [facility] Bilirubin, UA Neg NEG [facility] Ketones, UA Neg NEG [facility] Specific [place], 1.015 1.005 - 1.02 [facility] Urine Blood, UA Small (A) NEG [facility] pH, UA 5.0 5.0 - 9.0 [facility] Protein, UA Neg NEG [facility] Urobilinogen, UA Norm NORM mg/dL [facility] Nitrite, UA Neg NEG [facility] Leuk Esterase Small (A) NEG [facility] Specimen Performing Organization Address City/State/ZIP Code Phon e Number [facility] [address] [place] [address] SERVICES [facility] [address] [place] [address] documented in this encounter Visit Diagnoses Not on filedocumented in this encounter Care Teams Thermometer Maker Relationship Specialty Start Date End Date Sylvester Turcios MD PCP - General 04/27/09 05/10/[address] [place] [phone] Alea Esqueda MD PCP - General 05/11/14 02/22/[address] [place] [phone] Unknown, Provider, PCP - General 11/07/20 11/11/20 Ml Roche NP PCP - General 11/12/[address] [place] [address] [address] [place] [phone] documented as of this encounter
--- OUTSIDE RECORDS SUMMARY | 2022-02-07 00:24 | XMS_ITS | Encounter Summary ---
:1940 Author Organization [facility] Address [address] [place] [address] Care Team Providers Name Role Phone Sylvester Turcios MD Primary Care Provider Alae Esqueda MD Primary Care Provider Unknown, Provider Primary Care Provider Ml Roche NP Primary Care Provider Encounter Details Date Type Department Care Team Description 06/13/1999 Hospital Encounter [facility] - Garrison Lopez MD [address] [phone] Other Unknown, Provider, [address] [place] [address] Social History Tobacco Use Types [...] on filedocumented in this encounter Care Teams Clay Miner Relationship Specialty Start Date End Date Sylvester Turcios MD PCP - General 04/27/09 05/10/[address] [place] [address] [phone] Alea Esqueda MD PCP - General 05/11/14 02/22/20 [address] [place], [place] [phone] Unknown, Provider, PCP - General 11/07/20 11/11/20 Ml Roche NP PCP - General 11/12/[address] [place] [phone] documented as of this encounter
--- OUTSIDE RECORDS SUMMARY | 2022-02-07 00:24 | XMS_ITS | Encounter Summary ---
:1940 Author Organization [facility] Address [address] [place] [address] Care Team Providers Name Role Phone Unavailable Primary Care Provider Unavailable Encounter Details Date Type Department Care Team Description 07/23/2000 Hospital Encounter [facility]- Nj Daniels MD [address],[facility] [address] [place], [place] [id number] [place] [phone] (Wo rk) Social History Tobacco Use Types Packs/Day Years Used Date Never Assessed Sex Assigned at Date Recorded Female 05/26/2019 14:58 EST documented as of this encounter Discharge Disposition Disposition Code Departure Means Destination Auto Discharge documented in this encounter Plan of Treatment Not on filedocumented as of this encounter Procedures Procedure Name Priority Date/Time Associated Comments Diagnosis MA MAMMOGRAPHIC Routine 07/23/2000 8:45 Results f or this SCREEN DIOR EST procedure are i n the results section. documented in this encounter Results MA MAMMOGRAPHIC SCREEN DIOR (07/23/2000 8:45 EST) Anatomical Region Laterality Modality Other Specimen Impressions [facility] - 05/01/2009 21 :47 EST IMPRESSION: BILATERAL BREASTS - Category 1 Negative, no evidence of malignancy. Nor mal interval follow-up is recommended in 12 months. OVERALL ASSESSMENT - NEGATIVE END OF IMPRESSION Narrative [facility] - 05/01/2009 21 :47 EST ROUTINE DIOR SCREEN. ??(PCP NANCY WHITTINGTON, REQ [place] DANIELS) Comparison is made to films from 99 (bilateral). Bilateral Breast Findings: The breasts are heterogeneously dense. T his may lower the sensitivity of mammography. No masses, significant c alcifications or other abnormalities are seen. Procedure Note Tk Lopes MD / Regina Narayan PT / No Cisneros MD - 05/01/2009 ROUTINE DIOR SCREEN. (PCP NANCY WHITTINGTON, RE Gerardo DANIELS) Comparison is made to films from (bilateral). [...] City/State/ZIP Code Phon e Number [facility] [address] [place] [facility] [address] [facility] [address] [place], [place] [address] documented in this encounter Visit Diagnoses Not on filedocumented in this encounter
--- NOTE | 2022-02-07 14:10 | DI.MAMMO_ITS ---
Exam(s) MAMMO SCREEN CALL BACK UNI EXAM: MAMMO SCREEN CALL BACK UNI CLINICAL HISTORY: ASYMMETRIC DENSITY LT BREAST TECHNIQUE: Spot compression views and tomographic imaging were performed. COMPARISON: 03 February 2022 and exams back to 2013. FINDINGS: No suspicious masses or suspicious microcalcifications are seen. No persistent abnormality is seen on the additional views performed. The findings are consistent wit h overlying fibroglandular tissue. There has been no significant change from prior exams. IMPRESSION: BI-RADS Category 1, Negative Yearly screening mammography is recommended. Breast Density - Category B, scattered fibroglandular densities.
== END ==
PROVIDERS: PCP Nurse Practitioner Family; Visit Provider Obstetrics & Gynecology Gynecology
DX: Z12.31 Encounter for screening mammogram for malignant neoplasm of breast (principal)
CPT/HCPCS: 77063; 77067

== ENCOUNTER 2022-10-07 02:35 | Outpatient (CLI) | payer MEDICARE, SELFPAY ==
[2022-10-07 12:21] LABS: HCT 38.4 % (36.0-46.0); HGB 12.7 g/dL (11.2-15.7); MCH 31.1 pg (27.0-33.0); MCHC 33.1 % (32.0-36.0); MCV 94 fL (80-95); MPV 10.5 fL (8.0-11.0); Platelet Count 236 10^3/uL (130-400); RBC 4.09 10^6/uL (3.93-5.22); RDW 13.6 % (11.7-14.6); RDW-SD 46.5 fL; WBC 5.83 10^3/uL (4.4-10.8)
[2022-10-07 12:31] LABS: Anion Gap 4.4 mmol/L (3-11); BUN 22 mg/dL (7-18); CO2 30.6 mmol/L (21.0-32.0); CREATININE 1.1 mg/dL (0.55-1.02); Calcium 9.3 mg/dL (8.5-10.1); Chloride 106 mmol/L (98-107); Glucose 94 mg/dL (74-106); Potassium 4.3 mmol/L (3.5-5.1); Sodium 141 mmol/L (136-145)
== END 2022-10-07 02:36 | disposition home or self-care (01) ==
LOC: LOS 02:35
PROVIDERS: PCP Nurse Practitioner Family; Visit Provider Nurse Practitioner Family
DX: N18.30 Chronic kidney disease, stage 3 unspecified (principal); R73.03 Prediabetes; I48.20 Chronic atrial fibrillation, unspecified; Z79.01 Long term (current) use of anticoagulants
CPT/HCPCS: 36415; 80048; 85027; 83036

== ENCOUNTER 2022-10-10 15:24 | Outpatient (REF) | payer MEDICARE, SELFPAY ==
[2022-10-10 12:49] LABS: Bilirubin Negative (Negative); Blood Moderate (Negative); Clarity Clear (Clear); Glucose Negative (Negative); Ketones Negative (Negative); Leukocyte Esterase Negative (Negative); Nitrite Negative (Negative); Specific Gravity >= 1.030 (1.005-1.025); Urobilinogen 0.2 mg/dL (Up to 0.2); pH 5.5 (5-8)
[2022-10-10 13:02] LABS: Bacteria Negative HPF (Negative); C & S Indicated? No; Casts 0-2 Hyaline LPF (Negative); Crystals Negative HPF (Negative); Epithelial Cells Few HPF (Negative); Mucus Negative (Negative); WBC Negative HPF (0-5)
== END 2022-10-10 15:25 | disposition home or self-care (01) ==
LOC: LBN 15:24
PROVIDERS: PCP Nurse Practitioner Family; Visit Provider Nurse Practitioner Family
DX: R31.29 Other microscopic hematuria (principal)
CPT/HCPCS: 81003; 81015

== ENCOUNTER 2022-11-18 03:03 | Outpatient (CLI) | payer MEDICARE, SELFPAY ==
--- NOTE | 2022-11-13 15:02 | TELEFU_ITS ---
Date of service: 11/13/22 Time of Service: 15:02 Nutrition Note NOTE: Met with Brooke today to review her food log and weight. Brooke reports she was 102.5 lbs on her home scale this morning, my scale weighed her in at 106 lbs fully clothed, reweighed at [facility] today and weighed 103 lbs. Has gained weight from last week- approx. 1 lbs- progress. Food log indicates increase in po intake and averaging 6514-9265 kcal per day, up from 7698-1642 kcal from last week. Continues to avoid gluten and lactose and has done well adding calories into her typical meals without issue. Expect continued weight gain with focus on meeting macronutrient needs for weight gain. Encouraged increase in activity to help deposit muscle- walking, healthy bones exercise class, etc. Recommend follow up if unable to reach 110 lbs in next 6 weeks. Time Spent in Nutritional Counseling and Treatment: 30
--- NOTE | 2022-11-18 08:00 | DI.US_ITS ---
Exam(s) US RENAL EXAM: US RENAL CLINICAL HISTORY: hematuria,r31.29 TECHNIQUE: Ultrasound of both kidneys performed using standard protocol. COMPARISON: US US PELVIS TRANSVAGINAL from 12/26/[address] ABDOMEN PELVIS W from 03/21/2021 FINDINGS: RIGHT KIDNEY: Measures 8.7 cm in length. Parapelvic cysts, largest measuring 12 x 11 mm. Normal cortical thickness and corticomedullary differentiation .No solid masses No intrarenal calculi nor hydronephrosis. LEFT KIDNEY: Measures 9.3 cm in length. Parapelvic cysts, largest measuring 15 x 14 mm. Normal cortical thicknes s and corticomedullary differentiaion. No solids masses. No intrarenal calculi nor hydonephrosis. URINARY BLADDER: Prevoid volume is 62 cc Postvoid volume is 0 cc No evidence of bladder mass nor diverticuli. Ureterovesical jets: Both identified and appear symmetrical IMPRESSION: 1. Bilateral parapelvic cysts.. 2. No hydronephrosis nor hydroureter. 3. No obvious abnormality in urinary bladder DATA REPOSITORY:
== END 2022-11-18 03:23 ==
LOC: DI 03:03
PROVIDERS: PCP Nurse Practitioner Family; Visit Provider Nurse Practitioner Family
DX: N28.1 Cyst of kidney, acquired (principal); R31.29 Other microscopic hematuria
CPT/HCPCS: 76770

== ENCOUNTER 2022-12-02 02:01 | Outpatient (CLI) | payer MEDICARE, SELFPAY ==
[2022-12-02 10:45] LABS: ESR 10 mm/hr (0-30)
[2022-12-02 10:51] LABS: C-Reactive Protein 0.15 mg/dL (0.0-0.3)
[2022-12-02 19:10] LABS: Rheumatoid Factor <8.6 IU/mL (<12.0)
[2022-12-03 15:46] LABS: ANA Interpretation Positive (Negative); ANA Titer Pattern 1:320 Homogeneous
== END 2022-12-02 02:02 | disposition home or self-care (01) ==
LOC: LOS 02:01
PROVIDERS: PCP Nurse Practitioner Family; Visit Provider Nurse Practitioner Family
DX: R63.4 Abnormal weight loss (principal)
CPT/HCPCS: 36415; 85652; 86038; 86140; 86431

== ENCOUNTER → 2023-02-10 03:16 | Outpatient (CLI) | payer MEDICARE, SELFPAY ==
--- NOTE | 2023-02-10 11:45 | DI.MAMMO_ITS ---
Exam(s) MAMMO SCREENING EXAM: MAMMO SCREENING CLINICAL HISTORY: screening. TECHNIQUE: Bilateral full field digital CC and MLO mammographic images were obtained with 3D tomosyn thesis and utilizing computer aided detection (CAD). COMPARISON: Prior mammograms were reviewed. FINDINGS: Fibroglandular tissue pattern is again noted be moderately dense, this somewhat decreasing the sensit ivity of the mammogram for finding hidden underlying lesions. No obvious new findings in right breast. In the left breast anteriorly there is a partially calcified nodule measuring 8 x 7 mm, located anter ior to a benign macrocalcification. Also slightly more posteriorly in left breast there are 2 adjacent asymmetric densities-possible nodu les. No malignant-appearing microcalcification groups in either breast. There is no significant architectural distortion nor skin thickening-retraction. IMPRESSION: Moderately dense fibroglandular tissue. No radiographic evidence of malignancy in the right breast. Left breast nodular densities as described above. Spot compression views recommended as well as ivy st ultrasound. BI-RADS Category 0 - Assessment Incomplete: Need additional imaging evaluation Breast Density - Category C - Heterogeneously dense Breast density Category C or D implies that the patient has dense breast tissue. Dense breast tissue can make it harder to find cancer on a mammogram. Dense breast tissue is also associated with an incr eased risk of breast cancer. This information about the result of the mammogram report was provided to the patient to raise their awareness. Use this report when you speak with the patient about their risks for breast cancer, which includes their family history. At that time, you may recommend additional screening tests (Ultrasoun d or MRI) as these tests may add significant information. A negative radiographic report should not delay biopsy if a dominant or clinically suspicious mass is present. Up to ten percent of cancers are not identified on mammography. A negative report may reinforce clinical impression. Adenosis and dense breasts may obscure an underlying neoplasm. False positive reports average 6 to 10%. Patient will receive a letter notifying them of these results.
== END ==
PROVIDERS: PCP Nurse Practitioner Family; Visit Provider Obstetrics & Gynecology Gynecology
DX: Z12.31 Encounter for screening mammogram for malignant neoplasm of breast (principal)
CPT/HCPCS: 77063; 77067

== ENCOUNTER → 2023-02-17 01:52 | Outpatient (CLI) | payer MEDICARE, SELFPAY ==
--- NOTE | 2023-02-17 | DI.MAMMO_ITS ---
Exam(s) MG MAMMO SCREEN CALL BACK UNI US BREAST LT LIMITED EXAM: MG MAMMO SCREEN CALL BACK UNI and U/S breast LT limited CLINICAL HISTORY: LEFT BREAST NODULAR DENSITIES R92.8 ABNL MAMMO. TECHNIQUE: Craniocaudal and mediolateral oblique Full Field Digital Mammography views of the left br east with Computer Aided Diagnosis followed by Tomosynthesis and left breast ultrasound. COMPARISON: Varus is made with prior examinations. FINDINGS: Mammography/Tomosynthesis: Masses/Architectural Distortion: The areas in the lateral breast on the CC view are not visualized on the additional views most likely reflecting overlying fibroglandular tissue. The nodule with administration intern al calcifications persists in the retroareolar region of the medial left breast. Microcalcifictions: No suspicious pleomorphic-type are seen. Skin Thickening/Nipple Retraction: None. Limited left breast US: Echotexture: Normal appearance of the glandular tissue. Shadowing: The large shadowing calcification at 10 o'clock 2 cm from the nipple is noted. This corre sponds to the mammographic calcification. Cyst: None. Solid lesions: There is a hypoechoic lesion at the 10 o'clock position 2 cm from the nipple which has irregular borders and internal echogenic foci consistent with calcifications. This corresponds to t he mammographic area concern. It measures 0.4 x 0.5 x 0.6 cm. Ductal dilation: None. IMPRESSION: 1. 0.4 x 0.5 x 0.6 cm hypoechoic irregular mass at 2 cm from the nipple. This corresponds to the vicente mographic abnormality. 2. Biopsy is recommended for further evaluation. 3. The findings were discussed with the patient on the date of the examination. Findings were also d iscussed with Dr. Larson on 02/17/2023. BI-RADS Category 4 - Suspicious Abnormality: Biopsy should be considered Breast Density - Category C - Heterogeneously dense Breast density Category C or D implies that the patient has dense breast tissue. Dense breast tissue can make it harder to find cancer on a mammogram. Dense breast tissue is also associated with an incr eased risk of breast cancer. This information about the result of the mammogram report was provided to the patient to raise their awareness. Use this report when you speak with the patient about their risks for breast cancer, which includes their family history. At that time, you may recommend additional screening tests (Ultrasoun d or MRI) as these tests may add significant information. A negative radiographic report should not delay biopsy if a dominant or clinically suspicious mass is present. Up to ten percent of cancers are not identified on mammography. A negative report may reinforce clinical impression. Adenosis and dense breasts may obscure an underlying neoplasm. False positive reports average 6 to 10%. Patient will receive a letter notifying them of these results.
== END ==
PROVIDERS: PCP Nurse Practitioner Family; Visit Provider Obstetrics & Gynecology Gynecology
DX: R92.8 Other abnormal and inconclusive findings on diagnostic imaging of breast (principal); Z12.31 Encounter for screening mammogram for malignant neoplasm of breast
CPT/HCPCS: 76642; 77063; 77067

== ENCOUNTER 2023-10-28 05:32 | Outpatient (CLI) | payer MEDICARE, BC, SELFPAY ==
[2023-10-28 12:16] LABS: HCT 39.5 % (36.0-46.0); HGB 12.7 g/dL (11.2-15.7); MCHC 32.2 % (32.0-36.0); MCV 96 fL (80-95); MPV 10.2 fL (8.0-11.0); Platelet Count 252 10^3/uL (130-400); RDW 13.2 % (11.7-14.6); RDW-SD 46.6 fL; WBC 5.59 10^3/uL (4.4-10.8)
[2023-10-28 12:39] LABS: Hemoglobin A1C 5.8 % (<5.7)
[2023-10-28 13:07] LABS: AST 24 U/L (15-37); Albumin 3.9 g/dL (3.4-5.0); Alkaline Phosphatase 116 U/L (46-116); Anion Gap 8.9 mmol/L (3-11); BUN 22 mg/dL (7-18); Bilirubin, Total 0.5 mg/dL (0.2-1.0); CO2 30.1 mmol/L (21.0-32.0); CREATININE 1.3 mg/dL (0.55-1.02); Calcium 9.6 mg/dL (8.5-10.1); Calculated LDL 97 mg/dL (<100); Chloride 105 mmol/L (98-107); Cholesterol 193 mg/dL (<200); Estimated GFR 41.31 (mL/min/1.73m2); Glucose 86 mg/dL (74-106); HDL Cholesterol 77 mg/dL (40-60); Potassium 4.4 mmol/L (3.5-5.1); Sodium 144 mmol/L (136-145); TSH (W/Ref FT4) 3.09 uIU/mL (0.36-3.74); Total Protein 7.5 g/dL (6.4-8.2); Triglyceride 99 mg/dL (<150); Vitamin B12 842 pg/mL (193-986)
[2023-10-28 13:17] LABS: ALT 28 U/L (14-59)
== END 2023-10-28 05:33 | disposition home or self-care (01) ==
LOC: LOS 05:32
PROVIDERS: PCP Nurse Practitioner Family; Visit Provider Nurse Practitioner Family
DX: Z00.00 Encounter for general adult medical examination without abnormal findings (principal); R41.89 Other symptoms and signs involving cognitive functions and awareness; R71.8 Other abnormality of red blood cells
CPT/HCPCS: 36415; 80053; 80061; 85027; 82607; 83036; 84443

== ENCOUNTER → 2024-03-23 13:56 | Outpatient (BNVA) | payer MEDICARE, BC, SELFPAY | PROVIDERS: PCP Nurse Practitioner Family; Referring Provider Nurse Practitioner Family; Visit Provider Nurse Practitioner Adult Health | DX: R41.89 Other symptoms and signs involving cognitive functions and awareness (principal); F80.9 Developmental disorder of speech and language, unspecified | CPT/HCPCS: 99204 ==

== ENCOUNTER → 2024-07-27 11:05 | Outpatient (BNVA) | payer MEDICARE, BC, SELFPAY | PROVIDERS: PCP Nurse Practitioner Family; Referring Provider Nurse Practitioner Family; Visit Provider Nurse Practitioner Adult Health | DX: R41.89 Other symptoms and signs involving cognitive functions and awareness (principal) | CPT/HCPCS: 99213 ==

== ENCOUNTER 2024-10-17 00:43 | Outpatient (CLI) | payer MEDICARE, BC, SELFPAY ==
[2024-10-17 12:18] LABS: HGB 12.7 g/dL (11.2-15.7); MCH 31.1 pg (27.0-33.0); MCHC 33.4 % (32.0-36.0); MCV 93 fL (80-95); MPV 9.9 fL (8.0-11.0); Platelet Count 257 10^3/uL (130-400); RBC 4.08 10^6/uL (3.93-5.22); RDW 13.2 % (11.7-14.6); RDW-SD 44.8 fL; WBC 6.16 10^3/uL (4.4-10.8)
[2024-10-17 12:36] LABS: ALT 26 U/L (14-59); AST 28 U/L (15-37); Albumin 3.8 g/dL (3.4-5.0); Alkaline Phosphatase 111 U/L (46-116); Anion Gap 7.3 mmol/L (3-11); BUN 20 mg/dL (7-18); Bilirubin, Total 0.4 mg/dL (0.2-1.0); CO2 29.7 mmol/L (21.0-32.0); CREATININE 1.2 mg/dL (0.55-1.02); Calcium 9.5 mg/dL (8.5-10.1); Chloride 107 mmol/L (98-107); Estimated GFR 45.19 (mL/min/1.73m2); Glucose 95 mg/dL (74-106); Potassium 4.8 mmol/L (3.5-5.1); Sodium 144 mmol/L (136-145); Total Protein 7.5 g/dL (6.4-8.2)
[2024-10-17 12:46] LABS: Hemoglobin A1C 5.8 % (<5.7)
== END 2024-10-17 00:44 | disposition home or self-care (01) ==
LOC: LOS 00:43
PROVIDERS: PCP Nurse Practitioner Family; Visit Provider Nurse Practitioner Family
DX: N18.30 Chronic kidney disease, stage 3 unspecified (principal); R73.03 Prediabetes
CPT/HCPCS: 36415; 80053; 85027; 83036

== ENCOUNTER 2025-03-02 03:17 | Outpatient (CLI) | payer MEDICARE, BC, SELFPAY ==
--- NOTE | 2025-03-02 06:00 | DI.MRI_ITS ---
Exam(s) MR LOWER JOINT RT WO EXAM: MR LOWER JOINT RT WO CLINICAL HISTORY: suspected right meniscus tear,ACUTE MEDIAL MENISCAL INJURY,S83.8X1A TECHNIQUE: Multiplanar multisequence MRI of the knee was performed. COMPARISON: No plain films of the knee available at the time of this MRI interpretation. FINDINGS: EFFUSION: There is a small amount of increased joint fluid. No large joint effusion. No Contreras cyst in the popliteal fossa. MARROW:No evidence of fracture or prominent bone contusion signal. There is multilevel spotty marrow signal abnormality in the visualized distal femur and proximal tibia and fibula which is T1 hypo intense and T2 bright, possibly significant PATELLOFEMORAL COMPARTMENT: The quadriceps tendon is intact. The patellar ligament is intact. There is a full-thickness thinning of the retropatellar cartilage over mid-upper aspect of the medial facet of the patella and there is subjacent signal abnormality in the posterior patella at this level possibly representing osteochondral defects..There is no intraosseous signal to suggest recent campbell llar dislocation and there are no patellar retinacular tears evident. CRUCIATE LIGAMENTS: The anterior cruciate ligament is intact.The posterior cruciate ligament is intact. MEDIAL COMPARTMENT/MEDIAL MENISCUS: Min there is oblique tearing in the posterior horn of the medial meniscus. No bucket-handle configuration no flipped meniscal fragments. There is some increased signal between the outer aspect of the meniscus and the medial collateral ligament. The anterior horn of the medial meniscus appears intact.. Findings there is mild thinning of the articular cartilage over the medial femoral condyle. There is no subarticular edema at this level in the medial compartment. No osteochondral defects. No marginal osteophytes. MEDIAL COLLATERAL LIGAMENT: Mild sprain signal. No high-grade tear. LATERAL COMPARTMENT/LATERAL MENISCUS: There is no evidence of lateral meniscal tear.No prominent chondromalacia nor OCD or subarticular bone edema in the lateral compartment. ILIOTIBIAL BAND: Intact LATERAL COLLATERAL LIGAMENT COMPLEX: The fibular collateral ligament is intact. The biceps femoris tendon is intact.Popliteus muscle and tendon are intact. IMPRESSION: 1. There is horizontal/oblique tear in the posterior horn of the medial meniscus. There are only mild degenerative changes in the medial compartment and no subarticular intraosseous edema 2. Lateral compartment appears unremarkable. 3. There is full-thickness thinning/advanced chondromalacia of the retropatellar cartilage over the medial facet of the patella with areas of significant subarticular signal abnormality in the posterior patella. The retropatellar cartilage over the lateral facet is relatively preserved and there is no abnormal intraosseous signal in the lateral aspect of the patella. Quadriceps and patellar ligaments appear unremarkable. 4. Small amount of increased joint fluid. No large joint effusion nor Contreras cyst. There are no obvious loose intra-articular bodies in the joint DATA REPOSITORY:
== END 2025-03-02 03:37 ==
PROVIDERS: PCP Nurse Practitioner Family; Visit Provider Nurse Practitioner Family
DX: S83.8X1A Sprain of other specified parts of right knee, initial encounter (principal); X58.XXXA Exposure to other specified factors, initial encounter
CPT/HCPCS: 73721

== ENCOUNTER → 2025-03-07 10:37 | Outpatient (BNVA) | payer MEDICARE, BC, SELFPAY | PROVIDERS: PCP Nurse Practitioner Family; Referring Provider Nurse Practitioner Family; Visit Provider Physician Assistant | DX: S83.241A Other tear of medial meniscus, current injury, right knee, initial encounter (principal); M22.41 Chondromalacia patellae, right knee; X58.XXXA Exposure to other specified factors, initial encounter; M25.561 Pain in right knee | CPT/HCPCS: 20610; J1010 ==

== ENCOUNTER 2025-05-11 11:20 | Outpatient (CLI) | payer MEDICARE, BC, SELFPAY ==
--- NOTE | 2025-05-11 10:45 | DI.RAD_ITS ---
Exam(s) XR KNEE RT 4V AP,LAT,SANTA,PAT EXAM: XR KNEE RT 4V AP,LAT,SANTA,PAT CLINICAL HISTORY: R KNEE PAIN. TECHNIQUE: 2D digital imaging was performed. COMPARISON: No exams were available for comparison FINDINGS: Four views No evidence of fracture or prominent joint effusion. There is no significant joint space narrowing and no osteophytes. However, there is chondrocalcinosis evident in the medial lateral compartments. The chondrocalcinosis in the medial compartment appears to be within the meniscus and there is some meniscal extrusion implying that there may be a meniscal tear. In addition, the overlying medial collateral ligament shadow appears indistinct. This implies probable sprain or tear of this structure. IMPRESSION: Chondrocalcinosis. Suspicion for possible medial meniscal tear and medial collateral ligament abnormality. If clinically indicated can be further study with MRI for added sensitivity and specificity DATA REPOSITORY: RADIATION DOSE DELIVERED:
== END 2025-05-11 11:21 | disposition home or self-care (01) ==
LOC: DIORS 11:20
PROVIDERS: PCP Nurse Practitioner Family; Referring Provider Nurse Practitioner Family; Visit Provider Student in an Organized Health Care Education/Training Program
DX: M17.11 Unilateral primary osteoarthritis, right knee (principal); M22.41 Chondromalacia patellae, right knee
CPT/HCPCS: 99213; 73564